=== PATIENT | female | born 1940 | race Caucasian/White ===

== ENCOUNTER → 2017-04-14 | Outpatient (CLI) | payer MEDICARE ==
--- NOTE | 2017-04-15 13:05 | MM ---
Reason for exam: screening (asymptomatic). Last mammogram was performed 1 year and 4 months ago. History: Patient is postmenopausal. Physical Findings: A clinical breast exam by your physician is recommended on an annual basis and results should be correlated with mammographic findings. MG 3D Screening Mammo W/Cad Bilateral CC and MLO view(s) were taken. Prior study comparison: December 11, 2015, bilateral MG screening mammo w CAD. October 10, 2014, bilateral MG screening mammo w CAD. There are scattered fibroglandular densities. No significant changes when compared with prior studies. ASSESSMENT: Negative, BI-RAD 1 RECOMMENDATION: Routine screening mammogram of both breasts in 1 year.
== END | disposition home or self-care (01) ==
LOC: RADMAMWWP 10:28
PROVIDERS: ATTEND Family Medicine
DX: Z12.31 Encounter for screening mammogram for malignant neoplasm of breast (principal)
CPT/HCPCS: 77063; G0202

== ENCOUNTER 2017-04-21 07:25 | Day surgery (SDC) | payer MEDICARE ==
[2017-04-20 10:47] VITALS: BMI 29.9
[~2017-04-21 07:25] MED LIST: LACTATED RINGERS 1,000 ML IV SCH; LIDOCAINE 1% 20 ML VIAL (10MG/ML) FOR IV START INTRADERMA PRN
[2017-04-21 08:00] VITALS: TEMP 98.3
[2017-04-21] MEDS ORDERED: PROPOFOL 10 MG/ML 20 ML VIAL IV ONE (08:11)
--- NOTE | 2017-04-21 08:31 | P.PCN ---
Date of Procedure: 04/21/17 Procedure(s) Performed: BRIEF HISTORY: Patient is a 76-year-old pleasant white female scheduled for an elective colonoscopy as a part of evaluation of prior history of colon polyps. PROCEDURE PERFORMED: Colonoscopy with snare polypectomy PREOPERATIVE DIAGNOSIS: History of colon polyps. IV sedation per Anesthesia. PROCEDURE: After informed consent was obtained, the patient, was brought into the endoscopy unit. IV sedation was administered by Anesthesia under continuous monitoring. Digital rectal examination was normal. Initially the Olympus CF- 160 flexible video colonoscope was then inserted in the rectum, gradually advanced into the cecum without any difficulty. Careful examination was performed as the scope was gradually being withdrawn. Ileocecal valve and the appendiceal orifice were visualized and appeared normal. Prep was excellent. Mucosa of the cecum, ascending colon, transverse colon appeared normal. In the descending colon there was once limited polyp removed by snare polypectomy and in the sigmoid colon there was another 1 with a broad-based polyp removed by snare polypectomy. The last of the descending colon, sigmoid colon, and rectum appeared normal. moderate left sided diverticulosis seen. Retroflexion was performed in the rectum and no lesions were seen. The patient tolerated the procedure well. IMPRESSION: 1 cm descending colon polyp status post polypectomy 1 cm sigmoid colon polyp serous post-polypectomy Moderate left-sided diverticulosis. RECOMMENDATIONS: Findings of this examination were discussed with the patient as well as a family. He was advised to follow with the biopsy results. If the biopsy shows tubular adenoma she can have a repeat colonoscopy in 5 years.
[2017-04-21 08:33] LABS: Glucose,Whole Blood 96 mg/dL (75-99)
[2017-04-21 08:45] VITALS: RESP 18
[2017-04-21 09:10] VITALS: BP 111/63; PULSE 83
== END 2017-04-21 09:05 | disposition home or self-care (01) ==
LOC: ORWHC2ENDO 07:25
PROVIDERS: ATTEND Internal Medicine Gastroenterology
DX: Z12.11 Encounter for screening for malignant neoplasm of colon (principal); D12.5 Benign neoplasm of sigmoid colon; D12.4 Benign neoplasm of descending colon; K57.30 Diverticulosis of large intestine without perforation or abscess without bleeding; Z86.010 Personal history of colon polyps; I10 Essential (primary) hypertension; E78.5 Hyperlipidemia, unspecified; E11.9 Type 2 diabetes mellitus without complications; K21.9 Gastro-esophageal reflux disease without esophagitis; Z79.84 Long term (current) use of oral hypoglycemic drugs; Z79.82 Long term (current) use of aspirin; Z79.899 Other long term (current) drug therapy; Z88.5 Allergy status to narcotic agent; Z85.828 Personal history of other malignant neoplasm of skin
CPT/HCPCS: 45385; 88305; J2704

== ENCOUNTER → 2018-05-25 | Outpatient (CLI) | payer MEDICARE ==
--- NOTE | 2018-05-26 13:49 | MM ---
Reason for exam: screening (asymptomatic). Last mammogram was performed 1 year and 1 month ago. History: Patient is postmenopausal. MG 3D Screening Mammo W/Cad Bilateral CC and MLO view(s) were taken. Prior study comparison: April 14, 2017, bilateral MG 3d screening mammo w/cad. December 11, 2015, bilateral MG screening mammo w CAD. There are scattered fibroglandular densities. Chronic nodularity bilateral. No significant changes when compared with prior studies. ASSESSMENT: Benign, BI-RAD 2 RECOMMENDATION: Routine screening mammogram of both breasts in 1 year.
== END | disposition home or self-care (01) ==
LOC: RADMAMWWP 07:58
PROVIDERS: ATTEND Family Medicine
DX: Z12.31 Encounter for screening mammogram for malignant neoplasm of breast (principal)
CPT/HCPCS: 77063; 77067

== ENCOUNTER → 2018-11-18 | Outpatient (CLI) | payer MEDICARE ==
--- NOTE | 2018-11-21 19:02 | BD ---
EXAMINATION TYPE: Axial Bone Density DATE OF EXAM: 11/18/2018 COMPARISON: 08/19/2011 CLINICAL HISTORY: 78-year-old female disorder of bone Height: 63.5 Weight: 177.3 FRAX RISK QUESTIONS: Alcohol (3 or more units per day): no Family History (Parent hip fracture): no Glucocorticoids (More than 3mos): no (Ex: prednisone, prednisolone, methylprednisolone, dexamethasone, and hydrocortisone). History of Fracture in Adulthood: yes Secondary Osteoporosis: 1. Type 1 Diabetes: no 2. Hyperthyroidism: no 3. Menopause before 45: yes 4. Malnutrition: no 5. Chronic liver disease: no Rheumatoid Arthritis: no Current Tobacco Use: no RISK FACTORS HISTORY OF: Family History of Osteoporosis: yes Active: yes Diet low in dairy products/other sources of calcium: no Postmenopausal woman: age 44 Lost more than 2 inches in height since high school: no MEDICATIONS: metformin, simvastatin, lantis, acid reflux med Additional History: EXAM MEASUREMENTS: Bone mineral densitometry was performed using the [employer] System. Bone mineral density as measured about the Lumbar spine is: ----- L1-L4(G/cm2): 1.188 T Score Values are as follows: ----- L2: -0.6 ----- L3: 0.6 ----- L4: 0.7 ----- L1-L4: 0.1 Bone mineral density has: increased 4.6 % since study of: 08.19.2011 Bone mineral density about the R hip (g/cm2): 0.676 Bone mineral density about the L hip (g/cm2): 0.646 T Score values are as follows: -----R Neck: -2.6 -----L Neck: -2.8 -----R Total: -2.9 -----L Total: -2.9 Bone mineral density has: decreased -15.9 % since study of: 08.19.2011 IMPRESSION: Osteoporosis (T Score less than -2.5). There is increased fracture risk and therapy is usually indicated based on age. Re-Screen 1-2 years. NOTE: T-SCORE=SD OF THE YOUNG ADULT MEAN.
== END | disposition home or self-care (01) ==
LOC: RADBDWWP 09:03
PROVIDERS: ATTEND Family Medicine
DX: M81.0 Age-related osteoporosis without current pathological fracture (principal)
CPT/HCPCS: 77080

== ENCOUNTER → 2019-02-15 | Outpatient (CLI) | payer MEDICARE ==
[~2019-02-15] MED LIST changes: -LACTATED RINGERS 1,000 ML IV SCH; -LIDOCAINE 1% 20 ML VIAL (10MG/ML) FOR IV START INTRADERMA PRN; +SODIUM CHLORIDE 0.9% 500 ML 500 ML in EMPTY BAG 1 BAG IV PRN; +ZOLEDRONIC ACID 5 MG in SODIUM CHLORIDE 0.9% 100 ML IV NR
[2019-02-15 14:06] VITALS: BP 124/72; PULSE 109; RESP 16; TEMP 97.6
== END | disposition home or self-care (01) ==
LOC: PROCWHC3 12:58
PROVIDERS: ATTEND Family Medicine
DX: M81.0 Age-related osteoporosis without current pathological fracture (principal)
CPT/HCPCS: 96365

== ENCOUNTER → 2019-07-14 | Outpatient (CLI) | payer MEDICARE ==
--- NOTE | 2019-07-17 10:39 | MM ---
Reason for exam: screening (asymptomatic). Last mammogram was performed 1 year and 2 months ago. History: Patient is postmenopausal and history of other cancer. Physical Findings: A clinical breast exam by your physician is recommended on an annual basis and results should be correlated with mammographic findings. MG 3D Screening Mammo W/Cad Bilateral CC and MLO view(s) were taken. Prior study comparison: May 25, 2018, bilateral MG 3d screening mammo w/cad. April 14, 2017, bilateral MG 3d screening mammo w/cad. There are scattered fibroglandular densities. Stable benign calcifications. There is no discrete abnormality. No significant changes when compared with prior studies. ASSESSMENT: Benign, BI-RAD 2 RECOMMENDATION: Routine screening mammogram of both breasts in 1 year.
== END | disposition home or self-care (01) ==
LOC: RADMAMWWP 11:22
PROVIDERS: ATTEND Family Medicine
DX: Z12.31 Encounter for screening mammogram for malignant neoplasm of breast (principal)
CPT/HCPCS: 77063; 77067

== ENCOUNTER 2020-09-27 22:52 | Inpatient (IN) | payer MEDICARE ==
[2020-09-27] MEDS ORDERED: SODIUM CHLORIDE 0.9% 1,000 ML IV STA ×2 (22:57→23:14)
[2020-09-27] MEDS ORDERED: ALBUTEROL NEBULIZED 2.5 MG/3 ML INHALATION STA (23:14)
[2020-09-27] MEDS ORDERED: IPRATROPIUM 0.5 MG/2.5 ML NEBU INHALATION STA (23:14)
--- NOTE | 2020-09-27 23:19 | ED ---
SOB HPI - General Chief Complaint: Fall Stated Complaint: Fall, Weakness Time Seen by Provider: 09/27/20 22:53 Source: patient, family, RN notes reviewed, old records reviewed Mode of arrival: wheelchair Limitations: no limitations - History of Present Illness Initial Comments: This is a 80-year-old female to the ER for evaluation patient presents today for evaluation regards to severe distress unresponsiveness found the ground. Patient's brought by EMS, we are unable to get a pulse ox on this patient at this time. Patient is significantly low. Patient brought here by EMS family is at bedside providing recent history. Patient denying any pain she is able to answer questions and is alert MD Complaint: shortness of breath, cough, anxiety -: days(s) Severity: moderate Severity scale (1-10): 4 Consistency: constant Improves With: nothing Worsens With: nothing Known History Of: recurrent pneumonia Context: recent URI, anxiety, recent illness Associated Symptoms: fever, cough Treatments Prior to Arrival: oxygen, bronchodilator - Related Data Home Medications Medication Instructions Recorded Confirmed Aspirin [Adult Low Dose Aspirin EC] 81 mg PO DAILY 04/20/17 09/27/20 Cholecalciferol [Vitamin D3] 1,000 unit PO DAILY 04/20/17 09/27/20 Dapagliflozin Propanediol [Farxiga] 10 mg PO HS 04/20/17 09/27/20 Insulin Glargine,Hum.rec.anlog 75 unit SQ 04/20/17 09/27/20 [Lantus Solostar] Losartan [Cozaar] 25 mg PO QAM 04/20/17 09/27/20 Omeprazole 20 mg PO DAILY 04/20/17 09/27/20 Simvastatin [Zocor] 10 mg PO HS 04/20/17 09/27/20 metFORMIN HCL 1,500 mg PO W/BRKFST 04/20/17 09/27/20 Acetaminophen Tab [Tylenol Tab] 500 mg PO Q6H PRN 09/27/20 09/27/20 Furosemide [Lasix] 40 mg PO DAILY PRN 09/27/20 09/27/20 Sulfamethox-Tmp 800-160Mg [Bactrim 1 tab PO Q12HR 09/27/20 09/27/20 DS 800-160 mg] metFORMIN HCL 1,000 mg PO W/SUPPER 09/27/20 09/27/20 Allergies Allergy/AdvReac Type Severity Reaction Status Date / Time codeine AdvReac "MADE ME Verified 09/27/20 23:44 LOOPY" Review of Systems ROS Statement: Those systems with pertinent positive or pertinent negative responses have been documented in the HPI. ROS Other: All systems not noted in ROS Statement are negative. Past Medical History Past Medical History: Cancer, Diabetes Mellitus, GERD/Reflux, Hyperlipidemia, Hypertension Additional Past Medical History / Comment(s): Osteoporosis History of Any Multi-Drug Resistant Organisms: None Reported Past Surgical History: Hysterectomy Additional Past Surgical History / Comment(s): MILLY CATARACTS Past Anesthesia/Blood Transfusion Reactions: No Reported Reaction Past Psychological History: No Psychological Hx Reported Smoking Status: Never smoker Past Alcohol Use History: Rare Past Drug Use History: None Reported - Past Family History Mother Family Medical History: Cancer General Exam Limitations: altered mental status, physical limitation General appearance: alert, anxious Head exam: Present: atraumatic, normocephalic, normal inspection Eye exam: Present: normal appearance, PERRL, EOMI. Absent: scleral icterus, conjunctival injection, periorbital swelling ENT exam: Present: normal exam, mucous membranes moist Neck exam: Present: normal inspection. Absent: tenderness, meningismus, lymphadenopathy Respiratory exam: Present: respiratory distress, wheezes, accessory muscle use, decreased breath sounds, prolonged expiratory. Absent: rales, rhonchi, stridor Cardiovascular Exam: Present: normal rhythm, tachycardia, normal heart sounds. Absent: systolic murmur, diastolic murmur, rubs, gallop, clicks GI/Abdominal exam: Present: soft, normal bowel sounds. Absent: distended, tenderness, guarding, rebound, rigid Extremities exam: Present: normal inspection, full ROM, normal capillary refill. Absent: tenderness, pedal edema, joint swelling, calf tenderness Back exam: Present: normal inspection Neurological exam: Present: alert, oriented X3, CN II-XII intact Psychiatric exam: Present: normal affect, normal mood Skin exam: Present: warm, dry, intact, normal color. Absent: rash Course Vital Signs 09/27/20 09/27/20 09/28/20 23:03 23:40 00:21 Temperature 98.4 F Pulse Rate 133 H 122 H 116 H Respiratory 30 H 34 H 35 H Rate Blood Pressure 135/67 98/63 117/64 O2 Sat by Pulse 55 L 77 L 78 L Oximetry 09/28/20 09/28/20 01:28 03:34 Temperature Pulse Rate 111 H 95 Respiratory 33 H 25 H Rate Blood Pressure 115/67 115/67 O2 Sat by Pulse 97 96 Oximetry - Reevaluation(s) Reevaluation #1: Medical record is reviewed Patient continuously evaluated, difficulty getting oxygen improved she is late on her left side and oxygen does going to the 90s, remaining on BiPAP Patient remains alert Patient denying any significant pain Spoke with family at length regarding graveness of condition, the daughter who is at bedside is understanding, questions are answered - Consultations Consultation #1: spoke w Dr Redd re Admission, they're agreeable for admission Medical Decision Making - Medical Decision Making 80 female severe respiratory distress. Patient found down with significantly low pulse ox in the 50s 30s, patient brought to ER as well as supplemental O2 oxygen improved patient is able to speak but is significantly short of breath will admit ICU for further evaluation management - Lab Data Result diagrams: 09/30/20 03:18 09/30/20 03:18 Lab Results 09/27/20 09/27/20 09/27/20 Range/Units 23:45 23:45 23:45 WBC 3.8 (3.8-10.6) k/uL RBC 5.28 (3.80-5.40) m/uL Hgb 15.9 (11.4-16.0) gm/dL Hct 51.1 H (34.0-46.0) % MCV 96.8 (80.0-100.0) fL MCH 30.1 (25.0-35.0) pg MCHC 31.1 (31.0-37.0) g/dL RDW 14.0 (11.5-15.5) % Plt Count 99 L (150-450) k/uL MPV 10.0 Neutrophils % (Manual) 56 % Band Neuts % (Manual) 15 % Lymphocytes % (Manual) 21 % Monocytes % (Manual) 8 % Neutrophils # (Manual) 2.60 (1.3-7.7) k/uL Lymphocytes # (Manual) 0.80 L (1.0-4.8) k/uL Monocytes # (Manual) 0.30 (0-1.0) k/uL Nucleated RBCs 2 H (0-0) /100 WBC Manual Slide Review Performed Large Platelets Present Hypochromasia Slight PT 11.8 (9.0-12.0) sec INR 1.1 (<1.2) APTT 29.8 (22.0-30.0) sec D-Dimer 1.09 H (<0.60) mg/L FEU Sample Site ABG pH (7.35-7.45) ABG pCO2 (35-45) mmHg ABG pO2 (83-108) mmHg ABG HCO3 (21-25) mmol/L ABG Total CO2 (19-24) mmol/L ABG O2 Saturation (94-97) % ABG Base Excess mmol/L Ean Test FiO2 % Sodium 133 L (137-145) mmol/L Potassium 4.5 (3.5-5.1) mmol/L Chloride 100 (98-107) mmol/L Carbon Dioxide 14 L (22-30) mmol/L Anion Gap 19 mmol/L BUN 17 (7-17) mg/dL Creatinine 0.90 (0.52-1.04) mg/dL Est GFR (CKD-EPI)AfAm 71 (>60 ml/min/1.73 sqM) Est GFR (CKD-EPI)NonAf 61 (>60 ml/min/1.73 sqM) Glucose 103 H (74-99) mg/dL Lactic Ac Sepsis Rflx Plasma Lactic Acid Xavier (0.7-2.0) mmol/L Calcium 8.5 (8.4-10.2) mg/dL Phosphorus 4.9 H (2.5-4.5) mg/dL Magnesium 2.0 (1.6-2.3) mg/dL Total Bilirubin 0.9 (0.2-1.3) mg/dL AST 207 H (14-36) U/L ALT 62 H (4-34) U/L Alkaline Phosphatase 71 (38-126) U/L Lactate Dehydrogenase 1724 H (313-618) U/L Creatine Kinase 454 H (30-135) U/L Troponin I (0.000-0.034) ng/mL C-Reactive Protein 77.0 H (<10.0) mg/L NT-Pro-B Natriuret Pep pg/mL Total Protein 7.0 (6.3-8.2) g/dL Albumin 3.2 L (3.5-5.0) g/dL TSH 0.714 (0.465-4.680) mIU/L Coronavirus (PCR) (Not Detectd) 09/27/20 09/27/20 09/27/20 Range/Units 23:45 23:45 23:45 WBC (3.8-10.6) k/uL RBC (3.80-5.40) m/uL Hgb (11.4-16.0) gm/dL Hct (34.0-46.0) % MCV (80.0-100.0) fL MCH (25.0-35.0) pg MCHC (31.0-37.0) g/dL RDW (11.5-15.5) % Plt Count (150-450) k/uL MPV Neutrophils % (Manual) % Band Neuts % (Manual) % Lymphocytes % (Manual) % Monocytes % (Manual) % Neutrophils # (Manual) (1.3-7.7) k/uL Lymphocytes # (Manual) (1.0-4.8) k/uL Monocytes # (Manual) (0-1.0) k/uL Nucleated RBCs (0-0) /100 WBC Manual Slide Review Large Platelets Hypochromasia PT (9.0-12.0) sec INR (<1.2) APTT (22.0-30.0) sec D-Dimer (<0.60) mg/L FEU Sample Site ABG pH (7.35-7.45) ABG pCO2 (35-45) mmHg ABG pO2 (83-108) mmHg ABG HCO3 (21-25) mmol/L ABG Total CO2 (19-24) mmol/L ABG O2 Saturation (94-97) % ABG Base Excess mmol/L Ean Test FiO2 % Sodium (137-145) mmol/L Potassium (3.5-5.1) mmol/L Chloride (98-107) mmol/L Carbon Dioxide (22-30) mmol/L Anion Gap mmol/L BUN (7-17) mg/dL Creatinine (0.52-1.04) mg/dL Est GFR (CKD-EPI)AfAm (>60 ml/min/1.73 sqM) Est GFR (CKD-EPI)NonAf (>60 ml/min/1.73 sqM) Glucose (74-99) mg/dL Lactic Ac Sepsis Rflx Plasma Lactic Acid Xavier 11.4 H* (0.7-2.0) mmol/L Calcium (8.4-10.2) mg/dL Phosphorus (2.5-4.5) mg/dL Magnesium (1.6-2.3) mg/dL Total Bilirubin (0.2-1.3) mg/dL AST (14-36) U/L ALT (4-34) U/L Alkaline Phosphatase (38-126) U/L Lactate Dehydrogenase (313-618) U/L Creatine Kinase (30-135) U/L Troponin I 0.118 H* (0.000-0.034) ng/mL C-Reactive Protein (<10.0) mg/L NT-Pro-B Natriuret Pep 330 pg/mL Total Protein (6.3-8.2) g/dL Albumin (3.5-5.0) g/dL TSH (0.465-4.680) mIU/L Coronavirus (PCR) (Not Detectd) 09/28/20 09/28/20 09/28/20 Range/Units 00:14 01:02 01:14 WBC (3.8-10.6) k/uL RBC (3.80-5.40) m/uL Hgb (11.4-16.0) gm/dL Hct (34.0-46.0) % MCV (80.0-100.0) fL MCH (25.0-35.0) pg MCHC (31.0-37.0) g/dL RDW (11.5-15.5) % Plt Count (150-450) k/uL MPV Neutrophils % (Manual) % Band Neuts % (Manual) % Lymphocytes % (Manual) % Monocytes % (Manual) % Neutrophils # (Manual) (1.3-7.7) k/uL Lymphocytes # (Manual) (1.0-4.8) k/uL Monocytes # (Manual) (0-1.0) k/uL Nucleated RBCs (0-0) /100 WBC Manual Slide Review Large Platelets Hypochromasia PT (9.0-12.0) sec INR (<1.2) APTT (22.0-30.0) sec D-Dimer (<0.60) mg/L FEU Sample Site Right Radial ABG pH 7.32 L (7.35-7.45) ABG pCO2 28 L (35-45) mmHg ABG pO2 45 L* (83-108) mmHg ABG HCO3 14 L (21-25) mmol/L ABG Total CO2 15 L (19-24) mmol/L ABG O2 Saturation 76.6 L (94-97) % ABG Base Excess -12.0 mmol/L Ean Test Yes FiO2 100 % Sodium (137-145) mmol/L Potassium (3.5-5.1) mmol/L Chloride (98-107) mmol/L Carbon Dioxide (22-30) mmol/L Anion Gap mmol/L BUN (7-17) mg/dL Creatinine (0.52-1.04) mg/dL Est GFR (CKD-EPI)AfAm (>60 ml/min/1.73 sqM) Est GFR (CKD-EPI)NonAf (>60 ml/min/1.73 sqM) Glucose (74-99) mg/dL Lactic Ac Sepsis Rflx Y Plasma Lactic Acid Xavier (0.7-2.0) mmol/L Calcium (8.4-10.2) mg/dL Phosphorus (2.5-4.5) mg/dL Magnesium (1.6-2.3) mg/dL Total Bilirubin (0.2-1.3) mg/dL AST (14-36) U/L ALT (4-34) U/L Alkaline Phosphatase (38-126) U/L Lactate Dehydrogenase (313-618) U/L Creatine Kinase (30-135) U/L Troponin I (0.000-0.034) ng/mL C-Reactive Protein (<10.0) mg/L NT-Pro-B Natriuret Pep pg/mL Total Protein (6.3-8.2) g/dL Albumin (3.5-5.0) g/dL TSH (0.465-4.680) mIU/L Coronavirus (PCR) Detected A (Not Detectd) - EKG Data -: EKG Interpreted by Me (EKG is sinus tach 126 OH 124 QRS 128 QTc 489) - Radiology Data Radiology results: report reviewed (Chest x-ray shows significant pulmonary edema medical traits likely coronavirus), image reviewed Critical Care Time Critical Care Time: Yes Total Critical Care Time: 31 Disposition Clinical Impression: COVID-19, Pneumonia, ARDS (adult respiratory distress syndrome), Hypoxia Disposition: ADMITTED IP TO THIS HOSP Condition: Serious Is patient prescribed a controlled substance at d/c from ED?: No
--- NOTE | 2020-09-27 23:56 | XR ---
EXAMINATION TYPE: XR chest 1V portable DATE OF EXAM: 09/27/2020 COMPARISON: NONE HISTORY: Short of breath TECHNIQUE: Single view FINDINGS: Heart is enlarged. There is moderate pulmonary airspace edema. Thoracic aorta is atheromato us. There are chest leads. IMPRESSION: Moderate pulmonary edema that could relate to acute congestive heart failure or RDS.
[2020-09-28 00:48] LABS: HCT 51.1 % (34.0-46.0); HGB 15.9 gm/dL (11.4-16.0); Hypochromasia Slight; MCH 30.1 pg (25.0-35.0); MCHC 31.1 g/dL (31.0-37.0); MCV 96.8 fL (80.0-100.0); RBC 5.28 m/uL (3.80-5.40)
[2020-09-28 00:57] LABS: INR 1.1 (<1.2); Partial Thromboplastin Time 29.8 sec (22.0-30.0); Prothrombin Time 11.8 sec (9.0-12.0)
[2020-09-28 01:05] LABS: ABG HCO3 14 mmol/L (21-25); ABG Oxygen Saturation 76.6 % (94-97); ABG PCO2 28 mmHg (35-45); ABG PH 7.32 (7.35-7.45); ABG TCO2 15 mmol/L (19-24); Allen Test Performed? Yes
[2020-09-28 01:05] LABS: Albumin 3.2 g/dL (3.5-5.0); Calcium 8.5 mg/dL (8.4-10.2); Phosphorus 4.9 mg/dL (2.5-4.5); Potassium 4.5 mmol/L (3.5-5.1); Total Bilirubin 0.9 mg/dL (0.2-1.3)
[2020-09-28 01:12] LABS: D-Dimer 1.09 mg/L FEU (<0.60)
[2020-09-28 01:36] LABS: ABG PO2 45 mmHg (83-108)
[2020-09-28] MEDS ORDERED: NALOXONE 0.4 MG/ML 1 ML VIAL IV PRN (01:38)
[2020-09-28 01:39] LABS: Band Neutrophils % 15 %; Neutrophils % (M) 56 %; Nucleated Red Blood Cells 2 /100 WBC (0-0); Total Cells Counted 200; WBC 3.8 k/uL (3.8-10.6)
[2020-09-28 01:40] LABS: Large Platelets Present; Platelet Count 99 k/uL (150-450)
[2020-09-28 03:46] LABS: Glucose,Whole Blood 85 mg/dL (75-99)
[2020-09-28] MEDS ORDERED: SODIUM CHLORIDE 0.9% 2,000 ML IV ONE (04:18)
[2020-09-28] MEDS ORDERED: DEXAMETHASONE SOD PHOSPHATE 20 MG in DEXTROSE 5% IN WATER 50 ML IV ONE ×2 (04:30)
[2020-09-28 04:47] LABS: ABG HCO3 18 mmol/L (21-25); ABG PCO2 37 mmHg (35-45); ABG PH 7.29 (7.35-7.45); ABG PO2 80 mmHg (83-108); Allen Test Performed? Yes
[2020-09-28 04:48] LABS: ABG Base Excess -8.4 mmol/L; ABG TCO2 19 mmol/L (19-24)
[2020-09-28] MEDS: DEXAMETHASONE SOD PHOSPHATE 20 MG in DEXTROSE 5% IN WATER 50 ML IV SCH ×4 (06:00→09:01)
[2020-09-28] MEDS ORDERED: SODIUM CHLORIDE 0.9% 1,000 ML IV ONE (06:17)
[2020-09-28] MEDS: MORPHINE SULFATE 4 MG/ML SYRINGE IV PRN (06:33)
[2020-09-28] MEDS ORDERED: DEXMEDETOMIDINE/0.9% NACL(PMX) 400 MCG in EMPTY BAG 1 BAG IV SCH (06:45)
[2020-09-28] MEDS ORDERED: DILTIAZEM 5 MG/ML 5 ML VIAL IVP STA (06:49)
[2020-09-28] MEDS ORDERED: IPRATROPIUM-ALBUTEROL 3 ML NEB INHALATION SCH (08:00)
[2020-09-28] MEDS: ALBUTEROL HFA INHALER INHALATION SCH ×4 (08:27→19:16)
[2020-09-28 08:46] LABS: Amorphous Sediment,Urine Occasional /hpf; Appearance,Urine Clear (Clear); Bacteria,Urine Rare /hpf; Bilirubin,Urine Negative (Negative); Blood,Urine Negative (Negative); Color,Urine Yellow; Glucose,Urine (UA) 4+ (Negative); Hyaline Casts,Urine 4 /lpf (0-2); Ketones,Urine Negative (Negative); Leukocyte Esterase,Urine Negative (Negative); Mucus,Urine Rare /hpf; Nitrite,Urine Negative (Negative); PH, Urine 5.5 (5.0-8.0); Protein,Urine 1+ (Negative); RBC,Urine 21 /hpf (0-5); Specific Gravity,Urine 1.024 (1.001-1.035); Squamous Epithelial Cell,Urine 1 /hpf (0-4); Urobilinogen,Urine <2.0 mg/dL (<2.0); WBC,Urine 1 /hpf (0-5)
[2020-09-28] MEDS ORDERED: NOREPINEPHRIN 4 MG-0.9% NS PMX 4 MG/250 ML ML IV ONE (08:49)
--- NOTE | 2020-09-28 08:54 | XR ---
EXAMINATION TYPE: XR chest 1V portable DATE OF EXAM: 09/28/2020 COMPARISON: Chest x-ray dated 09/27/2020 HISTORY: Shortness of breath TECHNIQUE: Single frontal view of the chest is obtained. FINDINGS: Bilateral airspace disease, interstitial changes are again noted similar to prior exam. No evident pneumothorax. Heart is enlarged. Aorta is dense. Patient is rotated and there are overlying leads. Difficult to exclude effusion. IMPRESSION: Correlate for pulmonary edema, congestive heart failure, follow-up suggested.
[2020-09-28] MEDS: SODIUM CHLORIDE 0.9% 1,000 ML IV SCH ×3 (09:00→22:41)
[2020-09-28] MEDS: ENOXAPARIN 40 MG/0.4 ML SYRINGE SQ SCH (09:01)
[2020-09-28] MEDS ORDERED: CHLORHEXIDINE GLUCONATE 15 ML CUP MUCOUS MEM ONE (09:21)
--- NOTE | 2020-09-28 09:35 | P.CNPUL ---
History of Present Illness Consult date: 09/28/20 Reason for consult: dyspnea, pneumonia History of present illness: this 80-year-old female patient, known history of diabetes and hypertension, was brought into the emergency department upon the request of her family because of generalized weakness, falls and confusion x6 days. Her condition declined and the patient decompensated over the past 48-72 hours. This was rather a quick deterioration in her condition. She had been having also shortness of breath for the past 2 days.. In the emergency department, the initial vitals showed that the patient was profoundly hypoxic with a pulse ox of 50%. At that point, the patient also had blood work that showed severe lactic acidosis with a lactic acid level of 11. She wasgiven a chest x-ray that showed diffuse bilateral pulmonary infiltrates. The patient was given a bolus of 1 L of IV fluid and following that she was moved to the intensive care unit. The patient was kept on BiPAP throughout the night and currently she is on a BiPAP pressure of 14/7 cm of water with an FiO2 of 100%. Her FiO2 was 85%. She is responsive, however she is quite tachypneic and she is breathing in the mid 30s and she is struggling with her breathing and earlier this morning she started getting more restless and agitated. We had to start on Precedex which is currently running at 0.4 mcg/kg/h. She seems to be much more comfortable while on Precedex.had a bout of atrial fibrillation with rapid ventricular response in the ICU. The heart rate went up to 170 range. She was given 20 mg of Cardizem IV push. She converted back to normal sinus rhythm. She became hypotensive and her systolic blood pressure in the mid 60s. She was given additional 2 L of IV fluids and the patient is currently on normal saline running at 30 mL an hour. She will be also started on norepinephrine infusion. Lactic acid level is down to 6 based on the follow-up blood work.the blood gas showed a pH of 7.29 with a pCO2 of 37 and pO2 of 80. This was done a bipolar or 14/7 with an FiO2 of 100%. Chest x- ray showing diffuse breath and pulmonary infiltrates. D-dimer is at 1.09. The patient has a LDH of 1724, CRP level is 77, troponin is at 0.118, the proBNP level is 330, the patient has a lactic acid level of 11.4 at time of admission her lactic acid level is down to 6.7 and she has an anion gap metabolic acidosis with a serum bicarb of 14 and a gap of 19. UA is positive for glucose, +4, and COVID19 testing was positive. As such, her presentation is consistent with COVID 19 pneumonia. Review of Systems ROS unobtainable: due to mental status Past Medical History Past Medical History: Cancer, Diabetes Mellitus, GERD/Reflux, Hyperlipidemia, Hypertension Additional Past Medical History / Comment(s): Osteoporosis History of Any Multi-Drug Resistant Organisms: None Reported Past Surgical History: Hysterectomy Additional Past Surgical History / Comment(s): MILLY CATARACTS Past Anesthesia/Blood Transfusion Reactions: No Reported Reaction Past Psychological History: No Psychological Hx Reported Smoking Status: Never smoker Past Alcohol Use History: Rare Past Drug Use History: None Reported - Past Family History Mother Family Medical History: Cancer Medications and Allergies Home Medications Medication Instructions Recorded Confirmed Type Aspirin [Adult Low Dose Aspirin EC] 81 mg PO DAILY 04/20/17 09/27/20 History Cholecalciferol [Vitamin D3] 1,000 unit PO DAILY 04/20/17 09/27/20 History Dapagliflozin Propanediol [Farxiga] 10 mg PO HS 04/20/17 09/27/20 History Insulin Glargine,Hum.rec.anlog 75 unit SQ HS 04/20/17 09/27/20 History [Lantus Solostar] Losartan [Cozaar] 25 mg PO QAM 04/20/17 09/27/20 History Omeprazole 20 mg PO DAILY 04/20/17 09/27/20 History Simvastatin [Zocor] 10 mg PO HS 04/20/17 09/27/20 History metFORMIN HCL 1,500 mg PO W/BRKFST 04/20/17 09/27/20 History Acetaminophen Tab [Tylenol Tab] 500 mg PO Q6H PRN 09/27/20 09/27/20 History Furosemide [Lasix] 40 mg PO DAILY PRN 09/27/20 09/27/20 History Sulfamethox-Tmp 800-160Mg [Bactrim 1 tab PO Q12HR 09/27/20 09/27/20 History DS 800-160 mg] metFORMIN HCL 1,000 mg PO W/SUPPER 09/27/20 09/27/20 History Allergies Allergy/AdvReac Type Severity Reaction Status Date / Time codeine AdvReac "MADE ME Verified 09/27/20 23:44 LOOPY" Physical Exam Vitals: Vital Signs Temp Pulse Resp BP Pulse Ox 09/28/20 08:00 98.3 F 76 27 H 87/39 88 L 09/28/20 07:00 165/78 09/28/20 06:00 135 H 28 H 138/86 81 L 09/28/20 05:00 117 H 32 H 138/86 92 L 09/28/20 04:00 98.2 F 110 H 23 146/63 95 09/28/20 03:34 95 25 H 115/67 96 09/28/20 01:28 111 H 33 H 115/67 97 09/28/20 00:21 116 H 35 H 117/64 78 L 09/27/20 23:40 122 H 34 H 98/63 77 L 09/27/20 23:03 98.4 F 133 H 30 H 135/67 55 L Intake and Output 09/27/20 09/28/20 09/28/20 22:59 06:59 14:59 Intake Total 1730 630 Output Total 650 100 Balance 1080 530 Intake: IV 1730 630 Dexamethasone Sod 100 Phosphate 20 mg In Dextrose 5% in Water 50 ml @ 100 mls/hr IV DAILY [facility] Rx#:[id number] Sodium Chloride 0.9% 1, 130 000 ml @ 130 mls/hr IV . Q7H42M [facility] Rx#:[id number] Sodium Chloride 0.9% 1, 1630 500 000 ml @ 999 mls/hr IV . Q1H1M [facility] Rx#:[id number] Output: Urine 650 100 Other: Voiding Method Indwelling Catheter Weight 76.4 kg the patient is lethargic, tachypneic, using some accessory muscles of breathing while being on a BiPAP at a pressure of 14/7 cm of water with an FiO2 of 100%. She is arousable. She is currently less agitated on Precedex. Head exam was generally normal. There was no scleral icterus or corneal arcus. Mucous membranes were moist. Neck was supple and without jugular venous distension, thyromegaly, or carotid bruits. Carotids were easily palpable bilaterally. There was no adenopathy. Lungs sounds are diminished and the patient has crackles in the mid and lower lung lr bilaterally. Breath sounds are equal and symmetrical. sounds are regular, tachycardic,Cardiac exam revealed the PMI to be normally situated and sized. The rhythm was regular and no extrasystoles were noted during several minutes of auscultation. The first and second heart sounds were normal and physiologic splitting of the second heart sound was noted. There were no murmurs, rubs, clicks, or gallops. Abdominal exam revealed normal bowel sounds. The abdomen was soft, non-tender, and without masses, organomegaly, or appreciable enlargement of the abdominal aorta. Examination of the extremities revealed easily palpable radial, femoral and pedal pulses. There was no cyanosis, clubbing or edema. Examination of the skin revealed no evidence of significant rashes, suspicious appearing nevi or other concerning lesions. Results - Laboratory Findings CBC and BMP: 09/27/20 23:45 09/27/20 23:45 ABG ABG pH 7.29 (7.35-7.45) L 09/28/20 04:41 ABG pCO2 37 mmHg (35-45) 09/28/20 04:41 ABG pO2 80 mmHg (83-108) L 09/28/20 04:41 ABG O2 Saturation 95.0 % (94-97) 09/28/20 04:41 PT/INR, D-dimer PT 11.8 sec (9.0-12.0) 09/27/20 23:45 INR 1.1 (<1.2) 09/27/20 23:45 D-Dimer 1.09 mg/L FEU (<0.60) H 09/27/20 23:45 Abnormal lab findings: Abnormal Labs 09/27/20 09/27/20 09/27/20 23:45 23:45 23:45 Hct 51.1 H Plt Count 99 L Lymphocytes # (Manual) 0.80 L Nucleated RBCs 2 H D-Dimer 1.09 H ABG pH ABG pCO2 ABG pO2 ABG HCO3 ABG Total CO2 ABG O2 Saturation Sodium 133 L Carbon Dioxide 14 L Glucose 103 H Plasma Lactic Acid Xavier Phosphorus 4.9 H AST 207 H ALT 62 H Lactate Dehydrogenase 1724 H Creatine Kinase 454 H Troponin I C-Reactive Protein 77.0 H Albumin 3.2 L Urine Protein Urine Glucose (UA) Urine RBC Amorphous Sediment Urine Bacteria Hyaline Casts Urine Mucus Coronavirus (PCR) 09/27/20 09/27/20 09/28/20 23:45 23:45 00:14 Hct Plt Count Lymphocytes # (Manual) Nucleated RBCs D-Dimer ABG pH ABG pCO2 ABG pO2 ABG HCO3 ABG Total CO2 ABG O2 Saturation Sodium Carbon Dioxide Glucose Plasma Lactic Acid Xavier 11.4 H* Phosphorus AST ALT Lactate Dehydrogenase Creatine Kinase Troponin I 0.118 H* C-Reactive Protein Albumin Urine Protein Urine Glucose (UA) Urine RBC Amorphous Sediment Urine Bacteria Hyaline Casts Urine Mucus Coronavirus (PCR) Detected A 09/28/20 09/28/20 09/28/20 01:02 04:01 04:41 Hct Plt Count Lymphocytes # (Manual) Nucleated RBCs D-Dimer ABG pH 7.32 L 7.29 L ABG pCO2 28 L ABG pO2 45 L* 80 L ABG HCO3 14 L 18 L ABG Total CO2 15 L ABG O2 Saturation 76.6 L Sodium Carbon Dioxide Glucose Plasma Lactic Acid Xavier 6.7 H* Phosphorus AST ALT Lactate Dehydrogenase Creatine Kinase Troponin I C-Reactive Protein Albumin Urine Protein Urine Glucose (UA) Urine RBC Amorphous Sediment Urine Bacteria Hyaline Casts Urine Mucus Coronavirus (PCR) 09/28/20 08:06 Hct Plt Count Lymphocytes # (Manual) Nucleated RBCs D-Dimer ABG pH ABG pCO2 ABG pO2 ABG HCO3 ABG Total CO2 ABG O2 Saturation Sodium Carbon Dioxide Glucose Plasma Lactic Acid Xavier Phosphorus AST ALT Lactate Dehydrogenase Creatine Kinase Troponin I C-Reactive Protein Albumin Urine Protein 1+ H Urine Glucose (UA) 4+ H Urine RBC 21 H Amorphous Sediment Occasional H Urine Bacteria Rare H Hyaline Casts 4 H Urine Mucus Rare H Coronavirus (PCR) - Diagnostic Findings Chest x-ray: image reviewed Assessment and Plan Plan: 1 acute hypoxic respiratory failure secondary to: 90 related pneumonia. The patient is currently on BiPAP at a pressure of 14/7 with an FiO2 of 100%. She remains quite hypoxic, not responding to BiPAP and she would obviously need intubation mechanical ventilation. The patient had rapid decline in her overall condition over the past 6 days, worse over the past 48 hours. Chest x-ray showing diffuse bilaterally pulmonary infiltrates consistent with mobility related pneumonia 2 acute shortness of breath secondary to above 3 altered mental status secondary to above 4 acute lactic acidosis, improving and the lactic acid level is down to 6.7. The patient did have a anion gap metabolic acidosis at time of admission 5 lymphopenia along with a component of thrombocytopenia, viral in nature. 6 elevation in the inflammatory markings including LDH and CRP. There is also mild elevation of the d-dimer 7 diabetes mellitus 8 hypertension 9 paroxysmal atrial fibrillation current rhythm is sinus after being given Cardizem bolus. No drips were utilized. 10 hypotension, likely hypovolemic and the patient is receiving IV fluids and she'll be also started on norepinephrine for blood pressure control Plan I contacted her daughter. I elected discussion with the daughter. Apparently the patient's wishes were short-term intubation if needed for any major event like this. Based on that, I made a decision to proceed with intubation mechanical ventilation. Appropriate ventilator changes will be done. The patient will obviously need a high PEEP low volume ventilation. Review the blood. This post intubation. We'll insert a triple lumen catheter and arterial line. The patient is a candidate for steroids and I'm going to put on a high dose of Decadron 20 mg IV push. The patient is a candidate for convalescent plasma and the patient will be given 2 units. The patient is not a candidate for Remdesivir. She may be a candidate for [id number], and this will be initiated over the next 24 hours once infections have been ruled out. We are going to do suspect that the patient with IV fluids. She was given a total of 3 L. Monitor lactic acid level. Maintain maintenance fluid at the rate of 150 mL an hour and use pressors if needed in the form of norepinephrine. Check pro calcitonin level. Check blood cultures. Monitor hematologic profile. D-dimer is mildly elevated and will put the patient on Lovenox 40 mg subcutaneously. Continue supportive care. Provide vitamin C, vitamin D, and IV Pepcid. Monitor the cardiac rhythm. Obtain echocardiogram. We'll continue to follow. Time with Patient: Greater than 30
--- NOTE | 2020-09-28 10:01 | P.PCN ---
Date of Procedure: 09/28/20 Preoperative Diagnosis: acute hypoxic respiratory failure Postoperative Diagnosis: same Procedure(s) Performed: insertion of a triple-lumen catheter, insertion of an arterial line Anesthesia: local Surgeon: Antonio Alvarenga Pathology: other Condition: critical Disposition: ICU Operative Findings: central line Indication: Hemodynamic monitoring/Intravenous access. A time-out was completed verifying correct patient, procedure, site, positioning, and implant(s) or special equipment if applicable. The patient was placed in a dependent position appropriate for central line placement based on the vein to be cannulated. The patients left shoulder neck was prepped and draped in sterile fashion. 1% Lidocaine was used to anesthetize the surrounding skin area. A triple lumen 9F Cordis catheter was introduced into the left internal jugular vein using Seldinger technique. The catheter was threaded smoothly over the guide wire and appropriate blood return was obtained. Each lumen of the catheter was evacuated of air and flushed with sterile saline. The catheter was then sutured in place to the skin and a sterile dressing applied. Perfusion to the extremity distal to the point of catheter insertion was checked and found to be adequate. The patient tolerated the procedure well and there were no complications. Arterial line Indication: Hemodynamic monitoring. A time-out was completed verifying correct patient, procedure, site, positioning, and implant(s) or special equipment if applicable. Allens test was performed to ensure adequate perfusion. The patients right wristwas prepped and draped in sterile fashion. 1% Lidocaine was used to anesthetize the area. An 18G Arrow arterial line was introduced into the radial artery. The catheter was threaded over the guide wire and the needle was removed with appropriate pulsatile blood return. Blood loss was minimal. The catheter was then sutured in place to the skin and a sterile dressing applied. Perfusion to the extremity distal to the point of catheter insertion was checked and found to be adequate. The patient tolerated the procedure well and there were no complications.
[2020-09-28 10:07] LABS: Allen Test Performed? Yes
[2020-09-28 10:08] LABS: ABG Base Excess -9.6 mmol/L; ABG HCO3 19 mmol/L (21-25); ABG PCO2 49 mmHg (35-45); ABG PH 7.19 (7.35-7.45); ABG PO2 59 mmHg (83-108); ABG TCO2 20 mmol/L (19-24)
[2020-09-28] MEDS ORDERED: propofoL 100 ML IV ONE (10:12)
--- NOTE | 2020-09-28 10:35 | XR ---
EXAMINATION TYPE: XR chest 1V portable DATE OF EXAM: 09/28/2020 COMPARISON: Chest x-ray 09/28/2020 HISTORY: Tube placement TECHNIQUE: Single frontal view of the chest is obtained. FINDINGS: Endotracheal tube and NG tube have been placed in the interval and are overlying appropria te positions, there is a left jugular central venous catheter with the distal tip over the cavoatrial junction level. Bilateral airspace disease persists. There is no evident pneumothorax. Heart is like ly stable, patient is rotated. There are overlying leads. Aorta is dense. Heart is obscured. IMPRESSION: Correlate for congestive heart failure, pneumonia
[2020-09-28] MEDS: NOREPINEPHRINE 4 MG in SODIUM CHLORIDE 0.9% 250 ML IV SCH ×2 (10:41→14:16)
[2020-09-28 11:29] LABS: HCT 44.1 % (34.0-46.0); Hypochromasia Slight; MCH 31.2 pg (25.0-35.0); MCHC 31.8 g/dL (31.0-37.0); MCV 98.1 fL (80.0-100.0); Mean Platelet Volume 9.5; Platelet Count 116 k/uL (150-450); RDW 13.6 % (11.5-15.5); WBC 8.4 k/uL (3.8-10.6)
[2020-09-28 12:20] LABS: Glucose,Whole Blood 118 mg/dL (75-99)
[2020-09-28] MEDS: INSULIN ASPART (NovoLOG) 100 UNIT/ML VIAL SQ SCH ×3 (12:20→23:46)
--- NOTE | 2020-09-28 14:49 | P.HPIM ---
History of Present Illness H&P Date: 09/28/20 Ann-Marie Molina, is a 80-year-old female patient of Dr. Esquivel, who presented to [facility] emergency room with a chief complaint of worsening shortness of breath generalized weakness and confusion, symptoms started about 6 days prior to admission but her condition declined significantly in the last 2 days. Patient was evaluated in emergency room vital examination on presentation revealed a temperature of 98.4 pulse 133 respiration 30 blood pressure 135/67 pulse ox 55% on room air her white blood count was 3.8 hemoglobin 15.9 platelet count 99 sodium 133 potassium 4.5 plasma lactic acid 11.4 BUN 17 creatinine 0.9 arterial blood gases revealed a pH of 7.19 pCO2 49 by mouth to 59 . Chest x-ray done in the emergency room revealed moderate pulmonary edema that could relate to congestive heart failure or ARDS , EKG revealed sinus tachycardia with right bundle branch block , coronavirus PCR was positive. patient was admitted to intensive care unit she was started on BiPAP. Patient developed atrial fibrillation with rapid ventricular response with a heart rate of 170 she was started on Cardizem drip, she had episodes of hypotension, she was started on levophed drip, and earlier this morning she required intubation and mechanical ventilation. Her past medical history is significant for history of hypertension, history of hyperlipidemia, history of insulin-dependent diabetes mellitus, and history of osteoporosis Past Medical History Past Medical History: Cancer, Diabetes Mellitus, GERD/Reflux, Hyperlipidemia, Hypertension Additional Past Medical History / Comment(s): Osteoporosis History of Any Multi-Drug Resistant Organisms: None Reported Past Surgical History: Hysterectomy Additional Past Surgical History / Comment(s): MILLY CATARACTS Past Anesthesia/Blood Transfusion Reactions: No Reported Reaction Past Psychological History: No Psychological Hx Reported Smoking Status: Never smoker Past Alcohol Use History: Rare Past Drug Use History: None Reported - Past Family History Mother Family Medical History: Cancer Medications and Allergies Home Medications Medication Instructions Recorded Confirmed Type Aspirin [Adult Low Dose Aspirin EC] 81 mg PO DAILY 04/20/17 09/27/20 History Cholecalciferol [Vitamin D3] 1,000 unit PO DAILY 04/20/17 09/27/20 History Dapagliflozin Propanediol [Farxiga] 10 mg PO HS 04/20/17 09/27/20 History Insulin Glargine,Hum.rec.anlog 75 unit SQ HS 04/20/17 09/27/20 History [Lantus Solostar] Losartan [Cozaar] 25 mg PO QAM 04/20/17 09/27/20 History Omeprazole 20 mg PO DAILY 04/20/17 09/27/20 History Simvastatin [Zocor] 10 mg PO HS 04/20/17 09/27/20 History metFORMIN HCL 1,500 mg PO W/BRKFST 04/20/17 09/27/20 History Acetaminophen Tab [Tylenol Tab] 500 mg PO Q6H PRN 09/27/20 09/27/20 History Furosemide [Lasix] 40 mg PO DAILY PRN 09/27/20 09/27/20 History Sulfamethox-Tmp 800-160Mg [Bactrim 1 tab PO Q12HR 09/27/20 09/27/20 History DS 800-160 mg] metFORMIN HCL 1,000 mg PO W/SUPPER 09/27/20 09/27/20 History Allergies Allergy/AdvReac Type Severity Reaction Status Date / Time codeine AdvReac "MADE ME Verified 09/27/20 23:44 LOOPY" Physical Exam Vitals: Vital Signs Temp Pulse Resp BP Pulse Ox 09/28/20 06:00 135 H 28 H 138/86 81 L 09/28/20 05:00 117 H 32 H 138/86 92 L 09/28/20 04:00 98.2 F 110 H 23 146/63 95 09/28/20 03:34 95 25 H 115/67 96 09/28/20 01:28 111 H 33 H 115/67 97 09/28/20 00:21 116 H 35 H 117/64 78 L 09/27/20 23:40 122 H 34 H 98/63 77 L 09/27/20 23:03 98.4 F 133 H 30 H 135/67 55 L Intake and Output 09/27/20 09/27/20 09/28/20 14:59 22:59 06:59 Intake Total 2230 Output Total 650 Balance 1580 Intake: IV 2230 Dexamethasone Sod 100 Phosphate 20 mg In Dextrose 5% in Water 50 ml @ 100 mls/hr IV DAILY [facility] Rx#:[id number] Sodium Chloride 0.9% 1, 2130 000 ml @ 999 mls/hr IV . Q1H1M [facility] Rx#:[id number] Output: Urine 650 Other: Voiding Method Indwelling Catheter Weight 76.4 kg Patient is intubated sedated maintained on mechanical ventilation HEENT head normocephalic and atraumatic Neck is supple no JVD no goiter no lymphadenopathy Chest exam reveals a few scattered rhonchi no wheezing Cardiac exam reveals regular heart sounds no gallops no murmurs Abdomen is soft nontender no organomegaly with normal bowel sounds Extremity exam reveals no edema no cyanosis or clubbing Results CBC & Chem 7: 09/28/20 10:18 09/27/20 23:45 Labs: Abnormal Lab Results - Last 24 Hours (Table) 09/27/20 09/27/20 09/27/20 Range/Units 23:45 23:45 23:45 Hct 51.1 H (34.0-46.0) % Plt Count 99 L (150-450) k/uL Lymphocytes # (Manual) 0.80 L (1.0-4.8) k/uL Nucleated RBCs 2 H (0-0) /100 WBC D-Dimer 1.09 H (<0.60) mg/L FEU ABG pH (7.35-7.45) ABG pCO2 (35-45) mmHg ABG pO2 (83-108) mmHg ABG HCO3 (21-25) mmol/L ABG Total CO2 (19-24) mmol/L ABG O2 Saturation (94-97) % Sodium 133 L (137-145) mmol/L Carbon Dioxide 14 L (22-30) mmol/L Glucose 103 H (74-99) mg/dL Plasma Lactic Acid Lovely (0.7-2.0) mmol/L Phosphorus 4.9 H (2.5-4.5) mg/dL AST 207 H (14-36) U/L ALT 62 H (4-34) U/L Lactate Dehydrogenase 1724 H (313-618) U/L Creatine Kinase 454 H (30-135) U/L Troponin I (0.000-0.034) ng/mL C-Reactive Protein 77.0 H (<10.0) mg/L Albumin 3.2 L (3.5-5.0) g/dL Coronavirus (PCR) (Not Detectd) 09/27/20 09/27/20 09/28/20 Range/Units 23:45 23:45 00:14 Hct (34.0-46.0) % Plt Count (150-450) k/uL Lymphocytes # (Manual) (1.0-4.8) k/uL Nucleated RBCs (0-0) /100 WBC D-Dimer (<0.60) mg/L FEU ABG pH (7.35-7.45) ABG pCO2 (35-45) mmHg ABG pO2 (83-108) mmHg ABG HCO3 (21-25) mmol/L ABG Total CO2 (19-24) mmol/L ABG O2 Saturation (94-97) % Sodium (137-145) mmol/L Carbon Dioxide (22-30) mmol/L Glucose (74-99) mg/dL Plasma Lactic Acid Lovely 11.4 H* (0.7-2.0) mmol/L Phosphorus (2.5-4.5) mg/dL AST (14-36) U/L ALT (4-34) U/L Lactate Dehydrogenase (313-618) U/L Creatine Kinase (30-135) U/L Troponin I 0.118 H* (0.000-0.034) ng/mL C-Reactive Protein (<10.0) mg/L Albumin (3.5-5.0) g/dL Coronavirus (PCR) Detected A (Not Detectd) 09/28/20 09/28/20 09/28/20 Range/Units 01:02 04:01 04:41 Hct (34.0-46.0) % Plt Count (150-450) k/uL Lymphocytes # (Manual) (1.0-4.8) k/uL Nucleated RBCs (0-0) /100 WBC D-Dimer (<0.60) mg/L FEU ABG pH 7.32 L 7.29 L (7.35-7.45) ABG pCO2 28 L (35-45) mmHg ABG pO2 45 L* 80 L (83-108) mmHg ABG HCO3 14 L 18 L (21-25) mmol/L ABG Total CO2 15 L (19-24) mmol/L ABG O2 Saturation 76.6 L (94-97) % Sodium (137-145) mmol/L Carbon Dioxide (22-30) mmol/L Glucose (74-99) mg/dL Plasma Lactic Acid Lovely 6.7 H* (0.7-2.0) mmol/L Phosphorus (2.5-4.5) mg/dL AST (14-36) U/L ALT (4-34) U/L Lactate Dehydrogenase (313-618) U/L Creatine Kinase (30-135) U/L Troponin I (0.000-0.034) ng/mL C-Reactive Protein (<10.0) mg/L Albumin (3.5-5.0) g/dL Coronavirus (PCR) (Not Detectd) Thrombosis Risk Factor Assmnt - Choose All That Apply Each Factor Represents 1 point: Obesity (BMI >25) Each Risk Factor Represents 2 Points: Patient confined to bed Each Risk Factor Represents 3 Points: Age 75 years or older Thrombosis Risk Factor Assessment Total Risk Factor Score: 6 Thrombosis Risk Factor Assessment Level: High Risk Assessment and Plan Plan: 1. Acute hypoxic respiratory failure, requiring intubation and mechanical lovely tilation 2. Poitive Covid 19 testing 3. bilateral pulmonary infiltrates, likely related to pneumonia due to Covid 19 virus 4. Episode of atrial fibrillation with rapid ventricular response 5. Acute lactic acidosis improving 6. Episode of hypotension improved with IV fluid and levophed drip 7. Underlying history of hypertension 8. Underlying history of hyperlipidemia 9. Underlying history of diabetes mellitus Currently patient is intubated sedated maintained on mechanical ventilation She is maintained on IV Decadron and subcu Lovenox Will follow closely prognosis is guarded due to age and severity of illness
[2020-09-28 15:40] LABS: ABG PH 7.22 (7.35-7.45)
[2020-09-28 15:41] LABS: ABG Base Excess -11.5 mmol/L; ABG HCO3 16 mmol/L (21-25); ABG PCO2 39 mmHg (35-45); ABG PO2 74 mmHg (83-108); ABG TCO2 17 mmol/L (19-24)
[2020-09-28] MEDS: NOREPINEPHRINE 8 MG in SODIUM CHLORIDE 0.9% 250 ML IV SCH ×2 (16:43→22:38)
[2020-09-28 17:04] LABS: Glucose,Whole Blood 134 mg/dL (75-99)
--- NOTE | 2020-09-28 17:27 | ECHOF ---
Referral Reason:elevated troponin CoVID MEASUREMENTS -------- HEIGHT: 165.1 cm WEIGHT: 81.6 kg BP: RVIDd: 2.5 cm (< 3.3) IVSd: 1.0 cm (0.6 - 1.1) LVIDd: 5.1 cm (3.9 - 5.3) LVPWd: 1.2 cm (0.6 - 1.1) IVSs: 1.9 cm LVIDs: 3.4 cm LVPWs: 1.6 cm LAESV Index (A-L): 36.60 ml/m Ao Diam: 3.1 cm (2.0 - 3.7) AV Cusp: 2.2 cm (1.5 - 2.6) LA Diam: 3.7 cm (2.7 - 3.8) MV EXCURSION: 12.842 mm (> 18.000) MV EF SLOPE: 61 mm/s (70 - 150) EPSS: 0.9 cm MV E Didier: 1.11 m/s MV DecT: 184 ms MV A Didier: 0.87 m/s MV E/A Ratio: 1.27 RAP: 20.00 mmHg RVSP: 50.06 mmHg FINDINGS -------- This was a technically good study. The left ventricular size is normal. There is mild concentric left ventricular hypertrophy. Overa ll left ventricular systolic function is normal with, an EF between 55 - 60 %. Increased LAP. Grade 2 Diastolic Dysfuntion. The right ventricle is normal in size. LA is moderately dilated 34-39 ml/m2 The right atrial size is normal. Aortic valve is trileaflet and is mildly thickened. The mitral valve is normal. The mitral valve leaflets are mildly thickened. Mild mitral regurgita tion is present. The tricuspid valve appears structurally normal. Mild tricuspid regurgitation present. There is m oderate pulmonary hypertension. The right ventricular systolic pressure, as measured by Doppler, is 50.06mmHg. There is no pulmonic regurgitation present. The aortic root size is normal. The inferior vena cava is dilated with no significant inspiratory collapse which is consistent estima nyla right atrial pressure of >20 mmHg. There is a small, generalized pericardial effusion present. CONCLUSIONS -------- 1. The left ventricular size is normal. 2. There is mild concentric left ventricular hypertrophy. 3. Overall left ventricular systolic function is normal with, an EF between 55 - 60 %. 4. Increased LAP. Grade 2 Diastolic Dysfuntion. 5. LA is moderately dilated 34-39 ml/m2 6. Aortic valve is trileaflet and is mildly thickened. 7. The mitral valve leaflets are mildly thickened. 8. Mild mitral regurgitation is present. 9. Mild tricuspid regurgitation present. 10. There is moderate pulmonary hypertension. 11. The right ventricular systolic pressure, as measured by Doppler, is 50.06mmHg. 12. The inferior vena cava is dilated with no significant inspiratory collapse which is consistent es timated right atrial pressure of >20 mmHg. 13. There is a small, generalized pericardial effusion present. FIELD TECHNICAL SPECIALIST: Sarahy Snowden RDCS
[2020-09-28] MEDS: CHLORHEXIDINE GLUCONATE 15 ML CUP MUCOUS MEM SCH (20:26)
[2020-09-28 23:37] LABS: Glucose,Whole Blood 142 mg/dL (75-99)
[2020-09-29] MEDS: MORPHINE SULFATE 4 MG/ML SYRINGE IV PRN (00:22)
[2020-09-29] MEDS: NOREPINEPHRINE 8 MG in SODIUM CHLORIDE 0.9% 250 ML IV SCH ×3 (02:56→13:14)
[2020-09-29] MEDS: SODIUM CHLORIDE 0.9% 1,000 ML IV SCH ×3 (03:01→14:04)
[2020-09-29 04:59] LABS: Glucose,Whole Blood 160 mg/dL (75-99)
[2020-09-29 05:10] LABS: ABG Base Excess -11.3 mmol/L; ABG HCO3 17 mmol/L (21-25); ABG Oxygen Saturation 98.2 % (94-97); ABG PCO2 46 mmHg (35-45); ABG PO2 108 mmHg (83-108); ABG TCO2 18 mmol/L (19-24); Allen Test Performed? Yes
[2020-09-29 05:17] LABS: HGB 14.1 gm/dL (11.4-16.0); Hypochromasia Slight; MCH 29.9 pg (25.0-35.0); MCHC 30.1 g/dL (31.0-37.0); MCV 99.5 fL (80.0-100.0); Mean Platelet Volume 8.3; RBC 4.72 m/uL (3.80-5.40); RDW 13.8 % (11.5-15.5); WBC 24.6 k/uL (3.8-10.6)
[2020-09-29] MEDS: INSULIN ASPART (NovoLOG) 100 UNIT/ML VIAL SQ SCH ×4 (05:35→23:52)
[2020-09-29 05:41] LABS: Albumin 2.5 g/dL (3.5-5.0); Phosphorus 3.6 mg/dL (2.5-4.5); Potassium 5.6 mmol/L (3.5-5.1); Total Bilirubin 0.8 mg/dL (0.2-1.3); Total Protein 5.9 g/dL (6.3-8.2)
[2020-09-29 06:14] LABS: Platelet Count 181 k/uL (150-450)
[2020-09-29] MEDS: ALBUTEROL HFA INHALER INHALATION SCH ×4 (07:26→19:55)
--- NOTE | 2020-09-29 07:40 | XR ---
EXAMINATION TYPE: XR chest 1V portable DATE OF EXAM: 09/29/2020 COMPARISON: Chest x-ray 09/28/2020 HISTORY: Intubated TECHNIQUE: Single frontal view of the chest is obtained. FINDINGS: Endotracheal tube, NG tube, left jugular central venous catheter are again noted and are o verlying appropriate positions. Patient is rotated. No evident pneumothorax or pleural effusion. Ther e is some interval improved aeration within the lungs, interval improved visualization of the hemidia phragms. Aorta is dense. Cardiac mediastinal silhouette likely stable, differences in technique. IMPRESSION: There is some improvement in aeration.
[2020-09-29 08:49] LABS: Band Neutrophils % 5 %; Lymphocytes # (M) 2.21 k/uL (1.0-4.8); Monocytes # (M) 0.74 k/uL (0-1.0); Neutrophils % (M) 83 %; Nucleated Red Blood Cells 0 /100 WBC (0-0); Total Cells Counted 100
--- NOTE | 2020-09-29 09:08 | P.PN ---
Subjective Progress Note Date: 09/29/20 this 80-year-old female patient, known history of diabetes and hypertension, was brought into the emergency department upon the request of her family because of generalized weakness, falls and confusion x6 days. Her condition declined and the patient decompensated over the past 48-72 hours. This was rather a quick deterioration in her condition. She had been having also shortness of breath for the past 2 days.. In the emergency department, the initial vitals showed that the patient was profoundly hypoxic with a pulse ox of 50%. At that point, the patient also had blood work that showed severe lactic acidosis with a lactic acid level of 11. She wasgiven a chest x-ray that showed diffuse bilateral pulmonary infiltrates. The patient was given a bolus of 1 L of IV fluid and following that she was moved to the intensive care unit. The patient was kept on BiPAP throughout the night and currently she is on a BiPAP pressure of 14/7 cm of water with an FiO2 of 100%. Her FiO2 was 85%. She is responsive, however she is quite tachypneic and she is breathing in the mid 30s and she is struggl ing with her breathing and earlier this morning she started getting more restless and agitated. We had to start on Precedex which is currently running at 0.4 mcg/kg/h. She seems to be much more comfortable while on Precedex.had a bout of atrial fibrillation with rapid ventricular response in the ICU. The heart rate went up to 170 range. She was given 20 mg of Cardizem IV push. She converted back to normal sinus rhythm. She became hypotensive and her systolic blood pressure in the mid 60s. She was given additional 2 L of IV fluids and the patient is currently on normal saline running at 30 mL an hour. She will be also started on norepinephrine infusion. Lactic acid level is down to 6 based on the follow-up blood work.the blood gas showed a pH of 7.29 with a pCO2 of 37 and pO2 of 80. This was done a bipolar or 14/7 with an FiO2 of 100%. Chest x- ray showing diffuse breath and pulmonary infiltrates. D-dimer is at 1.09. The patient has a LDH of 1724, CRP level is 77, troponin is at 0.118, the proBNP level is 330, the patient has a lactic acid level of 11.4 at time of admission her lactic acid level is down to 6.7 and she has an anion gap metabolic acidosis with a serum bicarb of 14 and a gap of 19. UA is positive for glucose, +4, and COVID19 testing was positive. As such, her presentation is consistent with COVID 19 pneumonia. 09/29/2020, the patient remains intubated on a mechanical ventilator. The patient was intubated yesterday for an acute hypoxic respiratory failure and she was placed on mechanical ventilator she is currently off of a running at 40 mcg/kg per minute. The patient is on no paralytics. She is quite successful mechanical ventilator. She is an assist-control mode at the rate of 30 with a tidal volume of 375 and FiO2 of 60% with a PEEP of this. The chest x-ray from today is showing bilateral perihilar and lower lobe in addition to right upper lobe pulmonary rate. ET tube is in a good location. It is seen around 2 cm above the goyo. The patient also has a left internal jugular. Some today showed a pH of 7.18 with a pCO2 of 46 and pO2 of 108 and this wasn't an FiO2 of 60%. Meanwhile, the patient was quite hypotensive and acidotic and the patient had a very high lactic acid level of 11.4 which dropped down to 4.6 with fluid resuscitation. Overall, the patient received a total of 3 L of IV fluid in the form of normal saline and the patient is currently running at 130s's an hour of normal saline. Urine output is in order of 30-40 mL an hour and the net fluid balance is been +4.8 L over the past 24 hours. As such the patient is well resuscitated. Most recent blood pressure is 95/44 and the patient is currently on pressors at 19 mcg/ per minute of norepinephrine infusion. The procalcitonin level was at 0.53 and blood cultures and sputum cultures were sent and the patient was covered with empiric antibiotics and the patient was given cefepime and Levaquin. White cell count today's at 24. She was given Decadron. She was given convalescent plasma one unit.. The renal function is stable. Electrolytes are stable. Potassium level is at 5.6 and this needs to be repeated. Serum bicarb is at 17 which is improving. Less lactic acid level from yesterday was at 4.6. The patient's blood sugar is at 160 and she is on sliding scale coverage for blood sugar control. Cardiac rhythm is sinus. No further bouts of atrial fibrillation. She did have one a 1 bouts yesterday prior to intubation and she converted back into normal sinus rhythm without any major difficulties. Objective - Vital Signs Vital signs: Vital Signs Temp 99.1 F 09/29/20 08:00 Pulse 112 H 09/29/20 08:30 Resp 31 H 09/29/20 08:30 BP 111/62 09/29/20 08:30 Pulse Ox 95 09/29/20 08:30 Intake & Output 09/28/20 09/29/20 09/29/20 18:59 06:59 18:59 Intake Total 3359.880 2782.820 351.771 Output Total 885 400 65 Balance 2474.880 2382.820 286.771 Weight 82.6 kg Intake: IV 2810 1800 300 0.9 Sodium Chloride 140 240 40 Sodium Chloride 0.9% 1, 260 000 ml @ 130 mls/hr IV . Q7H42M [facility] Rx#:[id number] Sodium Chloride 0.9% 1, 1170 1560 000 ml @ 130 mls/hr IV . Q7H42M [facility] Rx#:[id number] Sodium Chloride 0.9% 1, 1500 000 ml @ 999 mls/hr IV . Q1H1M [facility]A Rx#:[id number] Intake, IV Titration 357.880 982.820 51.771 Amount Dexmedetomidine/0.9% NaCl 12.733 (Pmx) 400 mcg In Empty Bag 1 bag @ Titrate IV . Q0M [facility] Rx#:[id number] Norepinephrine 4 mg In 254.000 Sodium Chloride 0.9% 250 ml @ 0.05 MCG/KG/MIN 14. 554 mls/hr IV .[id number] [facility] Rx#:[id number] Norepinephrine 8 mg In 13.601 708.628 51.771 Sodium Chloride 0.9% 250 ml @ 0.05 MCG/KG/MIN 7. 392 mls/hr IV .Q24H [facility] Rx#:[id number] propofoL 1,000 mg In 77.546 274.192 Empty Bag 1 bag @ Titrate IV .Q0M [facility] Rx#: [id number] Blood Product 192 Ffp Pher Conval Covid19 192 Acda 2 Unit [id number] Output: Gastric Drainage 500 Urine 385 400 65 Other: Voiding Method Indwelling Catheter Indwelling Catheter ABP, PAP, CO, CI - Last Documented Arterial Blood Pressure 116/44 - Exam the patient is sedated on propofol, intubated on a mechanical ventilator. The patient has a orogastric and orotracheal tube are both of them are in place. She has a left IJ triple-lumen catheter in place. Head exam was generally normal. There was no scleral icterus or corneal arcus. Mucous membranes were moist. Neck was supple and without jugular venous distension, thyromegaly, or carotid bruits. Carotids were easily palpable bilaterally. There was no adenopathy. Lungs sounds are diminished and the patient has crackles in the mid and lower lung rl bilaterally. Breath sounds are equal and symmetrical. sounds are regular, tachycardic,Cardiac exam revealed the PMI to be normally situated and sized. The rhythm was regular and no extrasystoles were noted during several minutes of auscultation. The first and second heart sounds were normal and physiologic splitting of the second heart sound was noted. There were no murmurs, rubs, clicks, or gallops. Abdominal exam revealed normal bowel sounds. The abdomen was soft, non-tender, and without masses, organomegaly, or appreciable enlargement of the abdominal aorta. Examination of the extremities revealed easily palpable radial, femoral and pedal pulses. There was no cyanosis, clubbing or edema. Examination of the skin revealed no evidence of significant rashes, suspicious appearing nevi or other concerning lesions. Neurologically, the patient is sedated and she is calm and comfortable, arousable, pupils are equal and reactive to light. - Labs CBC & Chem 7: 09/29/20 04:55 09/29/20 04:55 Labs: Abnormal Lab Results - Last 24 Hours (Table) 09/28/20 09/28/20 09/28/20 Range/Units 04:01 08:10 09:50 WBC (3.8-10.6) k/uL Hct (34.0-46.0) % MCHC (31.0-37.0) g/dL Plt Count (150-450) k/uL ABG pH 7.19 L* (7.35-7.45) ABG pCO2 49 H (35-45) mmHg ABG pO2 59 L* (83-108) mmHg ABG HCO3 19 L (21-25) mmol/L ABG Total CO2 (19-24) mmol/L ABG O2 Saturation 85.0 L (94-97) % Sodium (137-145) mmol/L Potassium (3.5-5.1) mmol/L Chloride (98-107) mmol/L Carbon Dioxide (22-30) mmol/L BUN (7-17) mg/dL Glucose (74-99) mg/dL POC Glucose (mg/dL) (75-99) mg/dL Plasma Lactic Acid Xavier 4.5 H* (0.7-2.0) mmol/L Calcium (8.4-10.2) mg/dL AST (14-36) U/L ALT (4-34) U/L Total Protein (6.3-8.2) g/dL Albumin (3.5-5.0) g/dL Procalcitonin 0.53 H (0.02-0.09) ng/mL 09/28/20 09/28/20 09/28/20 Range/Units 10:18 11:21 12:18 WBC (3.8-10.6) k/uL Hct (34.0-46.0) % MCHC (31.0-37.0) g/dL Plt Count 116 L (150-450) k/uL ABG pH (7.35-7.45) ABG pCO2 (35-45) mmHg ABG pO2 (83-108) mmHg ABG HCO3 (21-25) mmol/L ABG Total CO2 (19-24) mmol/L ABG O2 Saturation (94-97) % Sodium (137-145) mmol/L Potassium (3.5-5.1) mmol/L Chloride (98-107) mmol/L Carbon Dioxide (22-30) mmol/L BUN (7-17) mg/dL Glucose (74-99) mg/dL POC Glucose (mg/dL) 118 H (75-99) mg/dL Plasma Lactic Acid Xavier 4.8 H* (0.7-2.0) mmol/L Calcium (8.4-10.2) mg/dL AST (14-36) U/L ALT (4-34) U/L Total Protein (6.3-8.2) g/dL Albumin (3.5-5.0) g/dL Procalcitonin (0.02-0.09) ng/mL 09/28/20 09/28/20 09/28/20 Range/Units 15:31 15:51 17:03 WBC (3.8-10.6) k/uL Hct (34.0-46.0) % MCHC (31.0-37.0) g/dL Plt Count (150-450) k/uL ABG pH 7.22 L (7.35-7.45) ABG pCO2 (35-45) mmHg ABG pO2 74 L (83-108) mmHg ABG HCO3 16 L (21-25) mmol/L ABG Total CO2 17 L (19-24) mmol/L ABG O2 Saturation 93.0 L (94-97) % Sodium (137-145) mmol/L Potassium (3.5-5.1) mmol/L Chloride (98-107) mmol/L Carbon Dioxide (22-30) mmol/L BUN (7-17) mg/dL Glucose (74-99) mg/dL POC Glucose (mg/dL) 134 H (75-99) mg/dL Plasma Lactic Acid Xavier 4.6 H* (0.7-2.0) mmol/L Calcium (8.4-10.2) mg/dL AST (14-36) U/L ALT (4-34) U/L Total Protein (6.3-8.2) g/dL Albumin (3.5-5.0) g/dL Procalcitonin (0.02-0.09) ng/mL 09/28/20 09/29/20 09/29/20 Range/Units 23:36 04:55 04:55 WBC 24.6 H (3.8-10.6) k/uL Hct 47.0 H (34.0-46.0) % MCHC 30.1 L (31.0-37.0) g/dL Plt Count (150-450) k/uL ABG pH (7.35-7.45) ABG pCO2 (35-45) mmHg ABG pO2 (83-108) mmHg ABG HCO3 (21-25) mmol/L ABG Total CO2 (19-24) mmol/L ABG O2 Saturation (94-97) % Sodium 136 L (137-145) mmol/L Potassium 5.6 H (3.5-5.1) mmol/L Chloride 110 H (98-107) mmol/L Carbon Dioxide 17 L (22-30) mmol/L BUN 28 H (7-17) mg/dL Glucose 184 H (74-99) mg/dL POC Glucose (mg/dL) 142 H (75-99) mg/dL Plasma Lactic Acid Xavier (0.7-2.0) mmol/L Calcium 7.0 L (8.4-10.2) mg/dL AST 166 H (14-36) U/L ALT 46 H (4-34) U/L Total Protein 5.9 L (6.3-8.2) g/dL Albumin 2.5 L (3.5-5.0) g/dL Procalcitonin (0.02-0.09) ng/mL 09/29/20 09/29/20 Range/Units 04:55 05:02 WBC (3.8-10.6) k/uL Hct (34.0-46.0) % MCHC (31.0-37.0) g/dL Plt Count (150-450) k/uL ABG pH 7.18 L* (7.35-7.45) ABG pCO2 46 H (35-45) mmHg ABG pO2 (83-108) mmHg ABG HCO3 17 L (21-25) mmol/L ABG Total CO2 18 L (19-24) mmol/L ABG O2 Saturation 98.2 H (94-97) % Sodium (137-145) mmol/L Potassium (3.5-5.1) mmol/L Chloride (98-107) mmol/L Carbon Dioxide (22-30) mmol/L BUN (7-17) mg/dL Glucose (74-99) mg/dL POC Glucose (mg/dL) 160 H (75-99) mg/dL Plasma Lactic Acid Xavier (0.7-2.0) mmol/L Calcium (8.4-10.2) mg/dL AST (14-36) U/L ALT (4-34) U/L Total Protein (6.3-8.2) g/dL Albumin (3.5-5.0) g/dL Procalcitonin (0.02-0.09) ng/mL Assessment and Plan Plan: 1 acute hypoxic respiratory failure secondary to COVID 19 related pneumonia. The patient was intubated on 09/28/2020 and currently she is a mechanical v entilator. The chest x-ray is a bit atypical and the patient's perihilar and right upper lobe and right lower lobe pulmonary infiltrate and some infiltration of the left lung base. The patient has mild elevation of the process for level. The patient is hypotensive. The patient had severe lactic acidosis at time of admission and it's possible that she has a superinfection knowing that the white cell count is also elevated at 24. The patient is covered with antibiotics for now. She is on Decadron. She received a unit of convalescent plasma and his second unit is to follow today. Not a candidate for of the severe due to her respiratory failure and high oxygen support and the low PF ratio 2 hypotension, resuscitated IV fluids, received a total of 3 L and currently normal saline running at 130s's an hour. Consider underlying septic event or sepsis induced hypotension. The patient is currently on norepinephrine infusion running at 19 g per minute. Adequate urine output. The echocardiogram was performed and the patient is a preserved LV function with a normal ejection fraction. No valvular abnormalities. There is grade 2 diastolic heart failure. There is also a small generalized pericardial effusion. 3 Covid 19 related pneumonia 4 acute lactic acidosis, improving and the lactic acid level is down to 4.6. The patient did have a anion gap metabolic acidosis at time of admission 5 lymphopenia along with a component of thrombocytopenia, viral in nature. 6 elevation in the inflammatory markings including LDH and CRP. There is also mild elevation of the d-dimer on follow-up levels are pending for now 7 diabetes mellitus 8 hypertension 9 paroxysmal atrial fibrillation current rhythm is sinus after being given Cardizem bolus. No drips were utilized. 10 leukocytosis Plan Continue ventilator support. On inspection of the mechanical ventilator, the patient does not have any significant elevation of the peak and static pressures in her lungs are relatively compliance. I put a right-sided volume of 450 on a VC plus modes of volume cycle and I dropped a respiratory rate down to 24 I also drop the FiO2 down to 50% with a PEEP of 15. The follow-up blood gases will be obtained. With these adjustments, the patient seems to be much more comfortable and a follow-up blood gases will be obtained around noontime. Continue Decadron and give the patient another unit of convalescent plasma as mentioned, the patient is not a candidate for Remdesivir. She may be a candidate for [id number], and this will be initiated over the next 24 hours once infections have been ruled out. Nevertheless, with her ongoing elevated protein calcitonin level and white cell count and hypotension, I would avoid giving her [id number] treatment at this point in time. I would suggest repeating the pro calcitonin level. Continue Zosyn and Levaquin. Awai ting cultures. Obtain 1 more lactic acid level. Wean off pressors. Continue IV fluids at the same rate of 130s's an hour. We'll continue to follow. Her condition is critical. Recheck inflammatory markers in a.m. Continue Lovenox 40 mg subcu for DVT prophylaxis. Continue supportive care. Provide vitamin C, vitamin D, and IV Pepcid. Monitor the cardiac rhythm. Start the patient she'll feeds. Keep her sedated for now. Condition is very critical. We'll continue to follow make further recommendations based on her progress. Evaluation was done and more than 30 minutes. Time with Patient: Greater than 30
[2020-09-29] MEDS: CHLORHEXIDINE GLUCONATE 15 ML CUP MUCOUS MEM SCH ×2 (09:18→20:05)
[2020-09-29] MEDS: DEXAMETHASONE SOD PHOSPHATE 20 MG in DEXTROSE 5% IN WATER 50 ML IV SCH ×2 (09:18)
[2020-09-29] MEDS: ENOXAPARIN 40 MG/0.4 ML SYRINGE SQ SCH (09:19)
[2020-09-29] MEDS: LEVOFLOXACIN 750MG-D5W PMX 750 MG in DEXTROSE/WATER 1 150ML.BAG IVPB SCH (09:19)
[2020-09-29] MEDS: PIPERACILLIN-TAZOBACTAM 3.375 GM in SODIUM CHLORIDE 0.9% 100 ML IVPB SCH ×2 (09:20→18:17)
[2020-09-29 11:41] LABS: Glucose,Whole Blood 175 mg/dL (75-99)
[2020-09-29 12:20] LABS: ABG HCO3 18 mmol/L (21-25); ABG Oxygen Saturation 95.1 % (94-97); ABG PCO2 43 mmHg (35-45); ABG PH 7.23 (7.35-7.45); ABG PO2 75 mmHg (83-108); ABG TCO2 19 mmol/L (19-24)
[2020-09-29 13:10] LABS: Glucose,Whole Blood 165 mg/dL (75-99)
[2020-09-29 14:20] LABS: Hemoglobin A1C 7.1 % (4.0-6.0)
--- NOTE | 2020-09-29 15:30 | P.PN ---
Subjective Progress Note Date: 09/29/20 Ann-Marie Molina, is a 80-year-old female patient of Dr. Esquivel, who presented to [facility] emergency room with a chief complaint of worsening shortness of breath generalized weakness and confusion, symptoms started about 6 days prior to admission but her condition declined significantly in the last 2 days. Patient was evaluated in emergency room vital examination on presentation revealed a temperature of 98.4 pulse 133 respiration 30 blood pressure 135/67 pulse ox 55% on room air her white blood count was 3.8 hemoglobin 15.9 platelet count 99 sodium 133 potassium 4.5 plasma lactic acid 11.4 BUN 17 creatinine 0.9 arterial blood gases revealed a pH of 7.19 pCO2 49 by mouth to 59 . Chest x-ray done in the emergency room revealed moderate pulmonary edema that could relate to congestive heart failure or ARDS , EKG revealed sinus tachycardia with right bundle branch block , coronavirus PCR was positive. patient was admitted to intensive care unit she was started on BiPAP. Patient developed atrial fibrillation with rapid ventricular response with a heart rate of 170 she was started on Cardizem drip, she had episodes of hypotension, she was started on levophed drip, and earlier this morning she required intubation and mechanical ventilation. Her past medical history is significant for history of hypertension, history of hyperlipidemia, history of insulin-dependent diabetes mellitus, and history of osteoporosis On 09/29/2020 patient was seen and examined in the ICU she is intubated sedated maintained on mechanical ventilation she is on assist control rate of 30 FiO2 60% and a PEEP of 15. PH is 7.18 pCO2 46 by mouth 08/26/2007 lactic acid is down to 4.6 blood pressure 100/52 she is still maintained on levophed infusion, she is maintained on IV Decadron she received 1 unit of convalescent plasma, white blood count 24.6 hemoglobin 14.1 platelet count 181 sodium 136 potassium 5.6 chloride 110 CO2 17 BUN 28 creatinine 1.2 glucose level 165 Objective - Vital Signs Vital signs: Vital Signs Temp 98.7 F 09/29/20 12:00 Pulse 100 09/29/20 15:00 Resp 24 09/29/20 15:00 BP 107/46 09/29/20 15:00 Pulse Ox 93 L 09/29/20 15:00 Intake & Output 09/28/20 09/29/20 09/29/20 18:59 06:59 18:59 Intake Total 3359.880 2782.820 1799.668 Output Total 885 400 155 Balance 2474.880 2382.820 1644.668 Weight 82.6 kg Intake: IV 2810 1800 1483 0.9 Sodium Chloride 140 240 110 Dexamethasone Sod 50 Phosphate 20 mg In Dextrose 5% in Water 50 ml @ 100 mls/hr IV DAILY [facility] Rx#:[id number] Levofloxacin 750Mg-D5w 150 Pmx 750 mg In Dextrose/ Water 1 150ml.bag @ 100 mls/hr IVPB Q48H [facility] Rx#: [id number] Piperacillin-Tazobactam 3 100 .375 gm In Sodium Chloride 0.9% 100 ml @ 25 mls/hr IVPB Q8H [facility] Rx#: [id number] Pressure Bag 33 Sodium Chloride 0.9% 1, 1040 000 ml @ 130 mls/hr IV . Q7H42M [facility] Rx#:[id number] Sodium Chloride 0.9% 1, 1170 1560 000 ml @ 130 mls/hr IV . Q7H42M [facility] Rx#:[id number] Sodium Chloride 0.9% 1, 1500 000 ml @ 999 mls/hr IV . Q1H1M [facility] Rx#:[id number] Intake, IV Titration 357.880 982.820 316.668 Amount Dexmedetomidine/0.9% NaCl 12.733 (Pmx) 400 mcg In Empty Bag 1 bag @ Titrate IV . Q0M [facility] Rx#:[id number] Norepinephrine 4 mg In 254.000 Sodium Chloride 0.9% 250 ml @ 0.05 MCG/KG/MIN 14. 554 mls/hr IV .[id number] [facility] Rx#:[id number] Norepinephrine 8 mg In 13.601 708.628 164.716 Sodium Chloride 0.9% 250 ml @ 0.05 MCG/KG/MIN 7. 392 mls/hr IV .Q24H [facility] Rx#:[id number] propofoL 1,000 mg In 77.546 274.192 151.952 Empty Bag 1 bag @ Titrate IV .Q0M [facility] Rx#: [id number] Blood Product 192 Ffp Pher Conval Covid19 192 Acda 2 Unit [id number] Output: Gastric Drainage 500 Urine 385 400 155 Other: Voiding Method Indwelling Catheter Indwelling Catheter Indwelling Catheter ABP, PAP, CO, CI - Last Documented Arterial Blood Pressure 102/41 - Exam Patient is intubated sedated maintained on mechanical ventilation HEENT head normocephalic and atraumatic Neck is supple no JVD no goiter no lymphadenopathy Chest exam reveals a few scattered rhonchi no wheezing Cardiac exam reveals regular heart sounds no gallops no murmurs Abdomen is soft nontender no organomegaly with normal bowel sounds Extremity exam reveals no edema no cyanosis or clubbing - Labs CBC & Chem 7: 09/29/20 04:55 09/29/20 04:55 Labs: Abnormal Lab Results - Last 24 Hours (Table) 09/28/20 09/28/20 09/28/20 Range/Units 04:01 15:31 15:51 WBC (3.8-10.6) k/uL Hct (34.0-46.0) % MCHC (31.0-37.0) g/dL Neutrophils # (Manual) (1.3-7.7) k/uL ABG pH 7.22 L (7.35-7.45) ABG pCO2 (35-45) mmHg ABG pO2 74 L (83-108) mmHg ABG HCO3 16 L (21-25) mmol/L ABG Total CO2 17 L (19-24) mmol/L ABG O2 Saturation 93.0 L (94-97) % ABG Lactic Acid (0.5-1.6) mmol/L Sodium (137-145) mmol/L Potassium (3.5-5.1) mmol/L Chloride (98-107) mmol/L Carbon Dioxide (22-30) mmol/L BUN (7-17) mg/dL Glucose (74-99) mg/dL POC Glucose (mg/dL) (75-99) mg/dL Hemoglobin A1c (4.0-6.0) % Plasma Lactic Acid Xavier 4.6 H* (0.7-2.0) mmol/L Calcium (8.4-10.2) mg/dL AST (14-36) U/L ALT (4-34) U/L Total Protein (6.3-8.2) g/dL Albumin (3.5-5.0) g/dL Procalcitonin 0.53 H (0.02-0.09) ng/mL 09/28/20 09/28/20 09/29/20 Range/Units 17:03 23:36 04:55 WBC (3.8-10.6) k/uL Hct (34.0-46.0) % MCHC (31.0-37.0) g/dL Neutrophils # (Manual) (1.3-7.7) k/uL ABG pH (7.35-7.45) ABG pCO2 (35-45) mmHg ABG pO2 (83-108) mmHg ABG HCO3 (21-25) mmol/L ABG Total CO2 (19-24) mmol/L ABG O2 Saturation (94-97) % ABG Lactic Acid (0.5-1.6) mmol/L Sodium (137-145) mmol/L Potassium (3.5-5.1) mmol/L Chloride (98-107) mmol/L Carbon Dioxide (22-30) mmol/L BUN (7-17) mg/dL Glucose (74-99) mg/dL POC Glucose (mg/dL) 134 H 142 H (75-99) mg/dL Hemoglobin A1c 7.1 H (4.0-6.0) % Plasma Lactic Acid Xavier (0.7-2.0) mmol/L Calcium (8.4-10.2) mg/dL AST (14-36) U/L ALT (4-34) U/L Total Protein (6.3-8.2) g/dL Albumin (3.5-5.0) g/dL Procalcitonin (0.02-0.09) ng/mL 09/29/20 09/29/20 09/29/20 Range/Units 04:55 04:55 04:55 WBC 24.6 H (3.8-10.6) k/uL Hct 47.0 H (34.0-46.0) % MCHC 30.1 L (31.0-37.0) g/dL Neutrophils # (Manual) 21.60 H (1.3-7.7) k/uL ABG pH (7.35-7.45) ABG pCO2 (35-45) mmHg ABG pO2 (83-108) mmHg ABG HCO3 (21-25) mmol/L ABG Total CO2 (19-24) mmol/L ABG O2 Saturation (94-97) % ABG Lactic Acid (0.5-1.6) mmol/L Sodium 136 L (137-145) mmol/L Potassium 5.6 H (3.5-5.1) mmol/L Chloride 110 H (98-107) mmol/L Carbon Dioxide 17 L (22-30) mmol/L BUN 28 H (7-17) mg/dL Glucose 184 H (74-99) mg/dL POC Glucose (mg/dL) 160 H (75-99) mg/dL Hemoglobin A1c (4.0-6.0) % Plasma Lactic Acid Xavier (0.7-2.0) mmol/L Calcium 7.0 L (8.4-10.2) mg/dL AST 166 H (14-36) U/L ALT 46 H (4-34) U/L Total Protein 5.9 L (6.3-8.2) g/dL Albumin 2.5 L (3.5-5.0) g/dL Procalcitonin (0.02-0.09) ng/mL 09/29/20 09/29/20 09/29/20 Range/Units 05:02 11:40 12:13 WBC (3.8-10.6) k/uL Hct (34.0-46.0) % MCHC (31.0-37.0) g/dL Neutrophils # (Manual) (1.3-7.7) k/uL ABG pH 7.18 L* 7.23 L (7.35-7.45) ABG pCO2 46 H (35-45) mmHg ABG pO2 75 L (83-108) mmHg ABG HCO3 17 L 18 L (21-25) mmol/L ABG Total CO2 18 L (19-24) mmol/L ABG O2 Saturation 98.2 H (94-97) % ABG Lactic Acid (0.5-1.6) mmol/L Sodium (137-145) mmol/L Potassium (3.5-5.1) mmol/L Chloride (98-107) mmol/L Carbon Dioxide (22-30) mmol/L BUN (7-17) mg/dL Glucose (74-99) mg/dL POC Glucose (mg/dL) 175 H (75-99) mg/dL Hemoglobin A1c (4.0-6.0) % Plasma Lactic Acid Xavier (0.7-2.0) mmol/L Calcium (8.4-10.2) mg/dL AST (14-36) U/L ALT (4-34) U/L Total Protein (6.3-8.2) g/dL Albumin (3.5-5.0) g/dL Procalcitonin (0.02-0.09) ng/mL 09/29/20 09/29/20 Range/Units 13:08 13:21 WBC (3.8-10.6) k/uL Hct (34.0-46.0) % MCHC (31.0-37.0) g/dL Neutrophils # (Manual) (1.3-7.7) k/uL ABG pH (7.35-7.45) ABG pCO2 (35-45) mmHg ABG pO2 (83-108) mmHg ABG HCO3 (21-25) mmol/L ABG Total CO2 (19-24) mmol/L ABG O2 Saturation (94-97) % ABG Lactic Acid 2.7 H* (0.5-1.6) mmol/L Sodium (137-145) mmol/L Potassium (3.5-5.1) mmol/L Chloride (98-107) mmol/L Carbon Dioxide (22-30) mmol/L BUN (7-17) mg/dL Glucose (74-99) mg/dL POC Glucose (mg/dL) 165 H (75-99) mg/dL Hemoglobin A1c (4.0-6.0) % Plasma Lactic Acid Xavier (0.7-2.0) mmol/L Calcium (8.4-10.2) mg/dL AST (14-36) U/L ALT (4-34) U/L Total Protein (6.3-8.2) g/dL Albumin (3.5-5.0) g/dL Procalcitonin (0.02-0.09) ng/mL Microbiology - Last 24 Hours (Table) 09/28/20 17:18 Gram Stain - Preliminary Sputum Sputum Culture - Preliminary Assessment and Plan Plan: 1. Acute hypoxic respiratory failure, requiring intubation and mechanical ventilation 2. Poitive Covid 19 testing 3. bilateral pulmonary infiltrates, likely related to pneumonia due to Covid 19 virus 4. Episode of atrial fibrillation with rapid ventricular response 5. Acute lactic acidosis improving 6. Episode of hypotension improved with IV fluid and levophed drip 7. Underlying history of hypertension 8. Underlying history of hyperlipidemia 9. Underlying history of diabetes mellitus Currently patient is intubated sedated maintained on mechanical ventilation She is maintained on IV Decadron and subcu Lovenox Will follow closely prognosis is guarded due to age and severity of illness
[2020-09-29 17:37] LABS: Glucose,Whole Blood 224 mg/dL (75-99)
[2020-09-29 23:41] LABS: Glucose,Whole Blood 157 mg/dL (75-99)
[2020-09-30] MEDS: PIPERACILLIN-TAZOBACTAM 3.375 GM in SODIUM CHLORIDE 0.9% 100 ML IVPB SCH ×3 (02:19→17:55)
[2020-09-30 04:46] LABS: C Reactive Protein 76.3 mg/L (<10.0)
[2020-09-30 05:24] LABS: ABG Base Excess -8.3 mmol/L; ABG HCO3 18 mmol/L (21-25); ABG Oxygen Saturation 95.1 % (94-97); ABG PCO2 37 mmHg (35-45); ABG PO2 72 mmHg (83-108); ABG TCO2 19 mmol/L (19-24); Allen Test Performed? Yes
[2020-09-30 06:15] LABS: Glucose,Whole Blood 151 mg/dL (75-99)
[2020-09-30 06:33] LABS: Calcium 7.2 mg/dL (8.4-10.2); Potassium 4.9 mmol/L (3.5-5.1)
[2020-09-30] MEDS: INSULIN ASPART (NovoLOG) 100 UNIT/ML VIAL SQ SCH ×3 (06:36→18:08)
[2020-09-30 06:42] LABS: HCT 39.7 % (34.0-46.0); HGB 12.6 gm/dL (11.4-16.0); Hypochromasia Slight; MCH 30.8 pg (25.0-35.0); MCHC 31.7 g/dL (31.0-37.0); MCV 97.2 fL (80.0-100.0); Mean Platelet Volume 8.6; Platelet Count 107 k/uL (150-450); RBC 4.08 m/uL (3.80-5.40); RDW 14.3 % (11.5-15.5); WBC 6.6 k/uL (3.8-10.6)
[2020-09-30 07:19] LABS: C Reactive Protein 148.2 mg/L (<10.0)
[2020-09-30] MEDS: ALBUTEROL HFA INHALER INHALATION SCH ×4 (07:38→19:44)
--- NOTE | 2020-09-30 07:43 | XR ---
EXAMINATION TYPE: XR chest 1V portable DATE OF EXAM: 09/30/2020 CLINICAL HISTORY: Difficulty breathing progress study. TECHNIQUE: Single AP portable semiupright view of the chest is obtained. COMPARISON: Chest x-ray from one day earlier and older studies. FINDINGS: Stable endotracheal and orogastric tubes. Stable left internal jugular central venous cath eter. Persistent cardiomegaly with atherosclerotic thoracic aorta. Background reticular interstitial changes bilaterally with increased central and lower lung opacities. Tiny left pleural effusion. Unde rlying scoliotic curvature or positioning. IMPRESSION: Bilateral multifocal infiltrates and/or edema on background cardiomegaly and chronic pare nchymal changes redemonstrated. No significant change from one day earlier.
[2020-09-30] MEDS: CHLORHEXIDINE GLUCONATE 15 ML CUP MUCOUS MEM SCH ×2 (07:50→20:28)
[2020-09-30 08:03] LABS: Band Neutrophils % 2 %; Lymphocytes # (M) 0.59 k/uL (1.0-4.8); Neutrophils % (M) 86 %; Nucleated Red Blood Cells 0 /100 WBC (0-0); Total Cells Counted 100
[2020-09-30] MEDS: NOREPINEPHRINE 8 MG in SODIUM CHLORIDE 0.9% 250 ML IV SCH (09:18)
[2020-09-30] MEDS: ENOXAPARIN 40 MG/0.4 ML SYRINGE SQ SCH (09:20)
[2020-09-30] MEDS: DEXAMETHASONE SOD PHOSPHATE 20 MG in DEXTROSE 5% IN WATER 50 ML IV SCH ×2 (09:20)
[2020-09-30 11:53] LABS: Glucose,Whole Blood 163 mg/dL (75-99)
[2020-09-30] MEDS: SODIUM CHLORIDE 0.9% 1,000 ML IV SCH ×3 (12:34→22:57)
[2020-09-30 12:41] LABS: Glucose,Whole Blood 132 mg/dL (75-99)
--- NOTE | 2020-09-30 14:02 | P.PN ---
Subjective Progress Note Date: 09/30/20 Principal diagnosis: Acute hypoxic respiratory failure secondary to Covid 19 pneumonitis. this 80-year-old female patient, known history of diabetes and hypertension, was brought into the emergency department upon the request of her family because of generalized weakness, falls and confusion x6 days. Her condition declined and the patient decompensated over the past 48-72 hours. This was rather a quick deterioration in her condition. She had been having also shortness of breath for the past 2 days.. In the emergency department, the initial vitals showed that the patient was profoundly hypoxic with a pulse ox of 50%. At that point, the patient also had blood work that showed severe lactic acidosis with a lactic acid level of 11. She wasgiven a chest x-ray that showed diffuse bilateral pulmonary infiltrates. The patient was given a bolus of 1 L of IV fluid and following that she was moved to the intensive care unit. The patient was kept on BiPAP throughout the night and currently she is on a BiPAP pressure of 14/7 cm of water with an FiO2 of 100%. Her FiO2 was 85%. She is responsive, however she is quite tachypneic and she is breathing in the mid 30s and she is struggling with her breathing and earlier this morning she started getting more restless and agitated. We had to start on Precedex which is currently running at 0.4 mcg/kg/h. She seems to be much more comfortable while on Precedex.had a bout of atrial fibrillation with rapid ventricular response in the ICU. The heart rate went up to 170 range. She was given 20 mg of Cardizem IV push. She converted back to normal sinus rhythm. She became hypotensive and her systolic blood pressure in the mid 60s. She was given additional 2 L of IV fluids and the patient is currently on normal saline running at 30 mL an hour. She will be also started on norepinephrine infusion. Lactic acid level is down to 6 based on the follow-up blood work.the blood gas showed a pH of 7.29 with a pCO2 of 37 and pO2 of 80. This was done a bipolar or 14/7 with an FiO2 of 100%. Chest x- ray showing diffuse breath and pulmonary infiltrates. D-dimer is at 1.09. The patient has a LDH of 1724, CRP level is 77, troponin is at 0.118, the proBNP level is 330, the patient has a lactic acid level of 11.4 at time of admission her lactic acid level is down to 6.7 and she has an anion gap metabolic acidosis with a serum bicarb of 14 and a gap of 19. UA is positive for glucose, +4, and COVID19 testing was positive. As such, her presentation is consistent with COVID 19 pneumonia. 09/29/2020, the patient remains intubated on a mechanical ventilator. The patient was intubated yesterday for an acute hypoxic respiratory failure and she was placed on mechanical ventilator she is currently off of a running at 40 mcg/kg per minute. The patient is on no paralytics. She is quite successful mechanical ventilator. She is an assist-control mode at the rate of 30 with a tidal volume of 375 and FiO2 of 60% with a PEEP of this. The chest x-ray from today is showing bilateral perihilar and lower lobe in addition to right upper lobe pulmonary rate. ET tube is in a good location. It is seen around 2 cm above the goyo. The patient also has a left internal jugular. Some today showed a pH of 7.18 with a pCO2 of 46 and pO2 of 108 and this wasn't an FiO2 of 60%. Meanwhile, the patient was quite hypotensive and acidotic and the patient had a very high lactic acid level of 11.4 which dropped down to 4.6 with fluid resuscitation. Overall, the patient received a total of 3 L of IV fluid in the form of normal saline and the patient is currently running at 130s's an hour of normal saline. Urine output is in order of 30-40 mL an hour and the net fluid balance is been +4.8 L over the past 24 hours. As such the patient is well resuscitated. Most recent blood pressure is 95/44 and the patient is currently on pressors at 19 mcg/ per minute of norepinephrine infusion. The procalcitonin level was at 0.53 and blood cultures and sputum cultures were sent and the patient was covered with empiric antibiotics and the patient was given cefepime and Levaquin. White cell count today's at 24. She was given Decadron. She was given convalescent plasma one unit.. The renal function is stable. E lectrolytes are stable. Potassium level is at 5.6 and this needs to be repeated. Serum bicarb is at 17 which is improving. Less lactic acid level from yesterday was at 4.6. The patient's blood sugar is at 160 and she is on sliding scale coverage for blood sugar control. Cardiac rhythm is sinus. No further bouts of atrial fibrillation. She did have one a 1 bouts yesterday prior to intubation and she converted back into normal sinus rhythm without any major difficulties. Patient was reevaluated today on 09/30/2020, remains in the ICU, intubated and mechanically ventilated. Patient is on volume control plus, tidal volume is 450, rate is 24, FiO2 is 60%, PEEP is at 15. ABG showed a pO2 of 72 pCO2 of 37 pH of 7.30. Patient is on propofol at 30 mcg/kg/m, off norepinephrine, IV fluid is at 13 0 mL per hour. Patient is on enteral feeding patient received 1 unit of convalescent plasma she was out of the window for remdesivir, she is on Decadron 20 mg daily, and she is also on Lovenox 40 mg subcu daily. Today, after reviewing her ABG and reviewed her chest x-ray, I felt there is no need to make any major changes in her ventilator settings. Hence no changes were made, and we will plan to continue present supportive care measures. Patient remains empirically on antibiotics. Her bicarb is improving not requiring any bicarb drip. She remains on sliding scale coverage for blood sugar. Presently in sinus rhythm, no further episodes of atrial fibrillation. Chest x-ray continues to show bilateral multifocal infiltrates with cardiomegaly. CBC is relatively normal. D-dimer is 1.77. Basic metabolic profile is normal. Renal profile is normal. LDH is 1814 and C-reactive protein is 76.3. Pro-calcitonin is elevated at 0.74. Levaquin and Zosyn and remain on board. Objective - Vital Signs Vital signs: Vital Signs Temp 98.9 F 09/30/20 12:00 Pulse 84 09/30/20 13:00 Resp 25 H 09/30/20 13:00 BP 99/45 09/30/20 13:00 Pulse Ox 93 L 09/30/20 13:00 Intake & Output 09/29/20 09/30/20 09/30/20 18:59 06:59 18:59 Intake Total 2646.774 2287.039 1197.875 Output Total 370 491 145 Balance 2276.774 3754.388 3145.875 Weight 88.1 kg 88.1 kg Intake: IV 2107 1868 1006 0.9 Sodium Chloride 190 40 Dexamethasone Sod 50 50 Phosphate 20 mg In Dextrose 5% in Water 50 ml @ 100 mls/hr IV DAILY [facility] Rx#:[id number] Levofloxacin 750Mg-D5w 150 Pmx 750 mg In Dextrose/ Water 1 150ml.bag @ 100 mls/hr IVPB Q48H [facility] Rx#: [id number] Piperacillin-Tazobactam 3 100 100 100 .375 gm In Sodium Chloride 0.9% 100 ml @ 25 mls/hr IVPB Q8H [facility] Rx#: [id number] Pressure Bag 57 78 36 Sodium Chloride 0.9% 1, 1560 1690 780 000 ml @ 130 mls/hr IV . Q7H42M [facility] Rx#:[id number] Intake, IV Titration 539.774 219.039 71.875 Amount Norepinephrine 8 mg In 339.774 82.942 1.972 Sodium Chloride 0.9% 250 ml @ 0.05 MCG/KG/MIN 7. 392 mls/hr IV .Q24H [facility] Rx#:[id number] propofoL 1,000 mg In 200.000 136.097 69.903 Empty Bag 1 bag @ Titrate IV .Q0M [facility] Rx#: [id number] Tube Feeding 110 60 Other 90 60 Output: Urine 370 491 145 Other: Voiding Method Indwelling Catheter Indwelling Catheter Indwelling Catheter ABP, PAP, CO, CI - Last Documented Arterial Blood Pressure 99/38 - Exam Physical Exam: Revealed a 80-year-old female in no distress, ventilated, sedated, comfortable. Head: Atraumatic, normocephalic HEENT:[Neck is supple.] [No neck masses.] [No thyromegaly.] [No JVD.] The tracheal tube and orogastric tubes are intact. Chest: [Clear throughout, minimal crackles at the bases no rhonchi and no wheezes. Cardiac Exam: [Normal S1 and S2, no S3 gallop, no murmur.] Abdomen: [Soft, nontender, no megaly, no rebound, no guarding, normal bowel sounds.] Extremities: [No clubbing, no edema, no cyanosis.] Neurological Exam: Could not assess, patient is sedated and maintained on propofol. She is calm and comfortable, pupils are equally reactive to light. Psychiatric: Could not be assessed. Skin: No rashes. - Labs CBC & Chem 7: 09/30/20 03:18 09/30/20 03:18 Labs: Abnormal Lab Results - Last 24 Hours (Table) 09/29/20 09/29/20 09/29/20 Range/Units 04:55 04:55 13:21 Plt Count (150-450) k/uL Lymphocytes # (Manual) (1.0-4.8) k/uL D-Dimer (<0.60) mg/L FEU ABG pH (7.35-7.45) ABG pO2 (83-108) mmHg ABG HCO3 (21-25) mmol/L ABG Lactic Acid 2.7 H* (0.5-1.6) mmol/L Sodium (137-145) mmol/L Potassium (3.5-5.1) mmol/L Chloride (98-107) mmol/L Carbon Dioxide (22-30) mmol/L BUN (7-17) mg/dL Glucose (74-99) mg/dL POC Glucose (mg/dL) (75-99) mg/dL Hemoglobin A1c 7.1 H (4.0-6.0) % Calcium (8.4-10.2) mg/dL Lactate Dehydrogenase 2069 H (313-618) U/L C-Reactive Protein 148.2 H (<10.0) mg/L Procalcitonin (0.02-0.09) ng/mL 09/29/20 09/29/20 09/29/20 Range/Units 17:18 17:36 23:40 Plt Count (150-450) k/uL Lymphocytes # (Manual) (1.0-4.8) k/uL D-Dimer (<0.60) mg/L FEU ABG pH (7.35-7.45) ABG pO2 (83-108) mmHg ABG HCO3 (21-25) mmol/L ABG Lactic Acid (0.5-1.6) mmol/L Sodium (137-145) mmol/L Potassium 5.5 H (3.5-5.1) mmol/L Chloride (98-107) mmol/L Carbon Dioxide (22-30) mmol/L BUN (7-17) mg/dL Glucose (74-99) mg/dL POC Glucose (mg/dL) 224 H 157 H (75-99) mg/dL Hemoglobin A1c (4.0-6.0) % Calcium (8.4-10.2) mg/dL Lactate Dehydrogenase (313-618) U/L C-Reactive Protein (<10.0) mg/L Procalcitonin (0.02-0.09) ng/mL 09/30/20 09/30/20 09/30/20 Range/Units 03:18 03:18 03:18 Plt Count (150-450) k/uL Lymphocytes # (Manual) (1.0-4.8) k/uL D-Dimer 1.77 H (<0.60) mg/L FEU ABG pH (7.35-7.45) ABG pO2 (83-108) mmHg ABG HCO3 (21-25) mmol/L ABG Lactic Acid (0.5-1.6) mmol/L Sodium (137-145) mmol/L Potassium (3.5-5.1) mmol/L Chloride (98-107) mmol/L Carbon Dioxide (22-30) mmol/L BUN (7-17) mg/dL Glucose (74-99) mg/dL POC Glucose (mg/dL) (75-99) mg/dL Hemoglobin A1c (4.0-6.0) % Calcium (8.4-10.2) mg/dL Lactate Dehydrogenase 1814 H (313-618) U/L C-Reactive Protein 76.3 H (<10.0) mg/L Procalcitonin 0.74 H (0.02-0.09) ng/mL 09/30/20 09/30/20 09/30/20 Range/Units 03:18 03:18 05:17 Plt Count 107 L (150-450) k/uL Lymphocytes # (Manual) 0.59 L (1.0-4.8) k/uL D-Dimer (<0.60) mg/L FEU ABG pH 7.30 L (7.35-7.45) ABG pO2 72 L (83-108) mmHg ABG HCO3 18 L (21-25) mmol/L ABG Lactic Acid (0.5-1.6) mmol/L Sodium 136 L (137-145) mmol/L Potassium (3.5-5.1) mmol/L Chloride 115 H (98-107) mmol/L Carbon Dioxide 19 L (22-30) mmol/L BUN 34 H (7-17) mg/dL Glucose 169 H (74-99) mg/dL POC Glucose (mg/dL) (75-99) mg/dL Hemoglobin A1c (4.0-6.0) % Calcium 7.2 L (8.4-10.2) mg/dL Lactate Dehydrogenase (313-618) U/L C-Reactive Protein (<10.0) mg/L Procalcitonin (0.02-0.09) ng/mL 09/30/20 09/30/20 09/30/20 Range/Units 06:14 11:52 12:39 Plt Count (150-450) k/uL Lymphocytes # (Manual) (1.0-4.8) k/uL D-Dimer (<0.60) mg/L FEU ABG pH (7.35-7.45) ABG pO2 (83-108) mmHg ABG HCO3 (21-25) mmol/L ABG Lactic Acid (0.5-1.6) mmol/L Sodium (137-145) mmol/L Potassium (3.5-5.1) mmol/L Chloride (98-107) mmol/L Carbon Dioxide (22-30) mmol/L BUN (7-17) mg/dL Glucose (74-99) mg/dL POC Glucose (mg/dL) 151 H 163 H 132 H (75-99) mg/dL Hemoglobin A1c (4.0-6.0) % Calcium (8.4-10.2) mg/dL Lactate Dehydrogenase (313-618) U/L C-Reactive Protein (<10.0) mg/L Procalcitonin (0.02-0.09) ng/mL Microbiology - Last 24 Hours (Table) 09/28/20 16:43 Blood Culture - Preliminary Blood No Growth after 24 hours 09/28/20 17:18 Gram Stain - Preliminary Sputum Sputum Culture - Preliminary Assessment and Plan Assessment: Impression: Acute hypoxic respiratory failure secondary to covid 19 pneumonitis. Lymphopenia with thrombocytopenia secondary to above. Elevated inflammatory markers Type 2 diabetes. Benign essential hypertension. Paroxysmal atrial fibrillation. Hypovolemic hypotension, responded well to IV fluids. Required pressors for a brief period of time. Recommendation: Continue ventilatory support. No changes were recommended today Continue Covid 19 cocktail. Continue Decadron. Patient was not a candidate for remdesivir and [id number]. Patient received 2 units of convalescent plasma. Continue nutritional support. Continue GI and DVT prophylaxis. Patient is critically ill, considering her ventilatory settings high PEEP and high FiO2, not ready for any form of weaning. Critical care time is 35 minutes. We'll continue to follow. Time with Patient: Greater than 30
[2020-09-30] MEDS ORDERED: FUROSEMIDE 10 MG/ML 4 ML VIAL IV STA (15:33)
[2020-09-30 18:05] LABS: Glucose,Whole Blood 155 mg/dL (75-99)
--- NOTE | 2020-09-30 19:23 | P.PN ---
Subjective Progress Note Date: 09/30/20 Ann-Marie Molina, is a 80-year-old female patient of Dr. Esquivel, who presented to [facility] emergency room with a chief complaint of worsening shortness of breath generalized weakness and confusion, symptoms started about 6 days prior to admission but her condition declined significantly in the last 2 days. Patient was evaluated in emergency room vital examination on presentation revealed a temperature of 98.4 pulse 133 respiration 30 blood pressure 135/67 pulse ox 55% on room air her white blood count was 3.8 hemoglobin 15.9 platelet count 99 sodium 133 potassium 4.5 plasma lactic acid 11.4 BUN 17 creatinine 0.9 arterial blood gases revealed a pH of 7.19 pCO2 49 by mouth to 59 . Chest x-ray done in the emergency room revealed moderate pulmonary edema that could relate to congestive heart failure or ARDS , EKG revealed sinus tachycardia with right bundle branch block , coronavirus PCR was positive. patient was admitted to intensive care unit she was started on BiPAP. Patient developed atrial fibrillation with rapid ventricular response with a heart rate of 170 she was started on Cardizem drip, she had episodes of hypotension, she was started on levophed drip, and earlier this morning she required intubation and mechanical ventilation. Her past medical history is significant for history of hypertension, history of hyperlipidemia, history of insulin-dependent diabetes mellitus, and history of osteoporosis On 09/29/2020 patient was seen and examined in the ICU she is intubated sedated maintained on mechanical ventilation she is on assist control rate of 30 FiO2 60% and a PEEP of 15. PH is 7.18 pCO2 46 by mouth 08/26/2007 lactic acid is down to 4.6 blood pressure 100/52 she is still maintained on levophed infusion, she is maintained on IV Decadron she received 1 unit of convalescent plasma, white blood count 24.6 hemoglobin 14.1 platelet count 181 sodium 136 potassium 5.6 chloride 110 CO2 17 BUN 28 creatinine 1.2 glucose level 165 On 09/30/2020 patient was seen and examined in the ICU she is intubated sedated maintained on mechanical ventilation, today she was taken off of vasopressors and has been tolerating well blood pressure at this time 98/55, pH is 7.30 pCO2 37 by mouth to 72 white blood count is down to 6.6 hemoglobin 12.6 platelet cou nt 107 d-dimer is 1.77 BUN 34 creatinine 0.96 Objective - Vital Signs Vital signs: Vital Signs Temp 99.1 F 09/30/20 08:00 Pulse 87 09/30/20 11:00 Resp 26 H 09/30/20 11:00 BP 102/49 09/30/20 10:30 Pulse Ox 93 L 09/30/20 11:00 Intake & Output 09/29/20 09/30/20 09/30/20 18:59 06:59 18:59 Intake Total 2646.774 2287.039 875.086 Output Total 370 491 90 Balance 2276.774 1796.039 785.086 Weight 88.1 kg 88.1 kg Intake: IV 2107 1868 734 0.9 Sodium Chloride 190 40 Dexamethasone Sod 50 50 Phosphate 20 mg In Dextrose 5% in Water 50 ml @ 100 mls/hr IV DAILY [facility] Rx#:[id number] Levofloxacin 750Mg-D5w 150 Pmx 750 mg In Dextrose/ Water 1 150ml.bag @ 100 mls/hr IVPB Q48H [facility] Rx#: [id number] Piperacillin-Tazobactam 3 100 100 100 .375 gm In Sodium Chloride 0.9% 100 ml @ 25 mls/hr IVPB Q8H [facility] Rx#: [id number] Pressure Bag 57 78 24 Sodium Chloride 0.9% 1, 1560 1690 520 000 ml @ 130 mls/hr IV . Q7H42M [facility] Rx#:[id number] Intake, IV Titration 539.774 219.039 71.086 Amount Norepinephrine 8 mg In 339.774 82.942 1.183 Sodium Chloride 0.9% 250 ml @ 0.05 MCG/KG/MIN 7. 392 mls/hr IV .Q24H [facility] Rx#:[id number] propofoL 1,000 mg In 200.000 136.097 69.903 Empty Bag 1 bag @ Titrate IV .Q0M [facility] Rx#: [id number] Tube Feeding 110 40 Other 90 30 Output: Urine 370 491 90 Other: Voiding Method Indwelling Catheter Indwelling Catheter Indwelling Catheter ABP, PAP, CO, CI - Last Documented Arterial Blood Pressure 104/37 - Exam Patient is intubated sedated maintained on mechanical ventilation HEENT head normocephalic and atraumatic Neck is supple no JVD no goiter no lymphadenopathy Chest exam reveals a few scattered rhonchi no wheezing Cardiac exam reveals regular heart sounds no gallops no murmurs Abdomen is soft nontender no organomegaly with normal bowel sounds Extremity exam reveals no edema no cyanosis or clubbing - Labs CBC & Chem 7: 09/30/20 03:18 09/30/20 03:18 Labs: Abnormal Lab Results - Last 24 Hours (Table) 09/29/20 09/29/20 09/29/20 Range/Units 04:55 04:55 13:08 Plt Count (150-450) k/uL Lymphocytes # (Manual) (1.0-4.8) k/uL D-Dimer (<0.60) mg/L FEU ABG pH (7.35-7.45) ABG pO2 (83-108) mmHg ABG HCO3 (21-25) mmol/L ABG Lactic Acid (0.5-1.6) mmol/L Sodium (137-145) mmol/L Potassium (3.5-5.1) mmol/L Chloride (98-107) mmol/L Carbon Dioxide (22-30) mmol/L BUN (7-17) mg/dL Glucose (74-99) mg/dL POC Glucose (mg/dL) 165 H (75-99) mg/dL Hemoglobin A1c 7.1 H (4.0-6.0) % Calcium (8.4-10.2) mg/dL Lactate Dehydrogenase 2069 H (313-618) U/L C-Reactive Protein 148.2 H (<10.0) mg/L Procalcitonin (0.02-0.09) ng/mL 09/29/20 09/29/20 09/29/20 Range/Units 13:21 17:18 17:36 Plt Count (150-450) k/uL Lymphocytes # (Manual) (1.0-4.8) k/uL D-Dimer (<0.60) mg/L FEU ABG pH (7.35-7.45) ABG pO2 (83-108) mmHg ABG HCO3 (21-25) mmol/L ABG Lactic Acid 2.7 H* (0.5-1.6) mmol/L Sodium (137-145) mmol/L Potassium 5.5 H (3.5-5.1) mmol/L Chloride (98-107) mmol/L Carbon Dioxide (22-30) mmol/L BUN (7-17) mg/dL Glucose (74-99) mg/dL POC Glucose (mg/dL) 224 H (75-99) mg/dL Hemoglobin A1c (4.0-6.0) % Calcium (8.4-10.2) mg/dL Lactate Dehydrogenase (313-618) U/L C-Reactive Protein (<10.0) mg/L Procalcitonin (0.02-0.09) ng/mL 09/29/20 09/30/20 09/30/20 Range/Units 23:40 03:18 03:18 Plt Count (150-450) k/uL Lymphocytes # (Manual) (1.0-4.8) k/uL D-Dimer 1.77 H (<0.60) mg/L FEU ABG pH (7.35-7.45) ABG pO2 (83-108) mmHg ABG HCO3 (21-25) mmol/L ABG Lactic Acid (0.5-1.6) mmol/L Sodium (137-145) mmol/L Potassium (3.5-5.1) mmol/L Chloride (98-107) mmol/L Carbon Dioxide (22-30) mmol/L BUN (7-17) mg/dL Glucose (74-99) mg/dL POC Glucose (mg/dL) 157 H (75-99) mg/dL Hemoglobin A1c (4.0-6.0) % Calcium (8.4-10.2) mg/dL Lactate Dehydrogenase (313-618) U/L C-Reactive Protein (<10.0) mg/L Procalcitonin 0.74 H (0.02-0.09) ng/mL 09/30/20 09/30/20 09/30/20 Range/Units 03:18 03:18 03:18 Plt Count 107 L (150-450) k/uL Lymphocytes # (Manual) 0.59 L (1.0-4.8) k/uL D-Dimer (<0.60) mg/L FEU ABG pH (7.35-7.45) ABG pO2 (83-108) mmHg ABG HCO3 (21-25) mmol/L ABG Lactic Acid (0.5-1.6) mmol/L Sodium 136 L (137-145) mmol/L Potassium (3.5-5.1) mmol/L Chloride 115 H (98-107) mmol/L Carbon Dioxide 19 L (22-30) mmol/L BUN 34 H (7-17) mg/dL Glucose 169 H (74-99) mg/dL POC Glucose (mg/dL) (75-99) mg/dL Hemoglobin A1c (4.0-6.0) % Calcium 7.2 L (8.4-10.2) mg/dL Lactate Dehydrogenase 1814 H (313-618) U/L C-Reactive Protein 76.3 H (<10.0) mg/L Procalcitonin (0.02-0.09) ng/mL 09/30/20 09/30/20 09/30/20 Range/Units 05:17 06:14 11:52 Plt Count (150-450) k/uL Lymphocytes # (Manual) (1.0-4.8) k/uL D-Dimer (<0.60) mg/L FEU ABG pH 7.30 L (7.35-7.45) ABG pO2 72 L (83-108) mmHg ABG HCO3 18 L (21-25) mmol/L ABG Lactic Acid (0.5-1.6) mmol/L Sodium (137-145) mmol/L Potassium (3.5-5.1) mmol/L Chloride (98-107) mmol/L Carbon Dioxide (22-30) mmol/L BUN (7-17) mg/dL Glucose (74-99) mg/dL POC Glucose (mg/dL) 151 H 163 H (75-99) mg/dL Hemoglobin A1c (4.0-6.0) % Calcium (8.4-10.2) mg/dL Lactate Dehydrogenase (313-618) U/L C-Reactive Protein (<10.0) mg/L Procalcitonin (0.02-0.09) ng/mL Microbiology - Last 24 Hours (Table) 09/28/20 16:43 Blood Culture - Preliminary Blood No Growth after 24 hours 09/28/20 17:18 Gram Stain - Preliminary Sputum Sputum Culture - Preliminary Assessment and Plan Plan: 1. Acute hypoxic respiratory failure, requiring intubation and mechanical ventilation 2. Poitive Covid 19 testing 3. bilateral pulmonary infiltrates, likely related to pneumonia due to Covid 19 virus 4. Episode of atrial fibrillation with rapid ventricular response 5. Acute lactic acidosis improving 6. Episode of hypotension improved with IV fluid and levophed drip 7. Underlying history of hypertension 8. Underlying history of hyperlipidemia 9. Underlying history of diabetes mellitus Currently patient is intubated sedated maintained on mechanical ventilation She is maintained on IV Decadron and subcu Lovenox Will follow closely prognosis is guarded due to age and severity of illness
[2020-10-01 00:05] LABS: Glucose,Whole Blood 167 mg/dL (75-99)
[2020-10-01] MEDS: INSULIN ASPART (NovoLOG) 100 UNIT/ML VIAL SQ SCH ×4 (00:31→17:50)
[2020-10-01] MEDS: SODIUM CHLORIDE 0.9% 1,000 ML IV SCH ×4 (01:48→21:23)
[2020-10-01] MEDS: PIPERACILLIN-TAZOBACTAM 3.375 GM in SODIUM CHLORIDE 0.9% 100 ML IVPB SCH ×3 (01:53→17:50)
[2020-10-01 04:48] LABS: C Reactive Protein 47.3 mg/L (<10.0); Calcium 7.7 mg/dL (8.4-10.2); Potassium 4.9 mmol/L (3.5-5.1); Total Bilirubin 1.1 mg/dL (0.2-1.3)
[2020-10-01 05:36] LABS: ABG Base Excess -8.3 mmol/L; ABG HCO3 19 mmol/L (21-25); ABG Oxygen Saturation 94.9 % (94-97); ABG PCO2 42 mmHg (35-45); ABG PH 7.26 (7.35-7.45); ABG PO2 76 mmHg (83-108); ABG TCO2 20 mmol/L (19-24); Allen Test Performed? Yes
[2020-10-01 05:36] LABS: HGB 12.6 gm/dL (11.4-16.0); Hypochromasia Slight; MCH 30.5 pg (25.0-35.0); MCHC 31.3 g/dL (31.0-37.0); MCV 97.2 fL (80.0-100.0); Platelet Count 102 k/uL (150-450); RBC 4.12 m/uL (3.80-5.40); RDW 14.5 % (11.5-15.5); WBC 5.8 k/uL (3.8-10.6)
[2020-10-01 06:22] LABS: Glucose,Whole Blood 202 mg/dL (75-99)
[2020-10-01 07:25] LABS: Band Neutrophils % 6 %; Lymphocytes # (M) 0.46 k/uL (1.0-4.8); Metamyelocytes # (M) 0.06 k/uL (0); Metamyelocytes % 1 %; Monocytes # (M) 0.23 k/uL (0-1.0); Neutrophils % (M) 82 %; Nucleated Red Blood Cells 0 /100 WBC (0-0); Total Cells Counted 200
[2020-10-01 07:26] LABS: Anisocytosis (M) Present
[2020-10-01 07:27] LABS: Polychromasia Present
[2020-10-01] MEDS: ALBUTEROL HFA INHALER INHALATION SCH ×4 (07:29→19:06)
[2020-10-01 07:44] LABS: Large Platelets Present
[2020-10-01] MEDS: CHLORHEXIDINE GLUCONATE 15 ML CUP MUCOUS MEM SCH ×2 (08:30→21:16)
[2020-10-01] MEDS: ENOXAPARIN 40 MG/0.4 ML SYRINGE SQ SCH (08:31)
[2020-10-01] MEDS: LEVOFLOXACIN 750MG-D5W PMX 750 MG in DEXTROSE/WATER 1 150ML.BAG IVPB SCH (08:31)
[2020-10-01] MEDS: DEXAMETHASONE SOD PHOSPHATE 20 MG in DEXTROSE 5% IN WATER 50 ML IV SCH ×2 (08:51)
--- NOTE | 2020-10-01 09:02 | XR ---
EXAMINATION TYPE: XR chest 1V portable DATE OF EXAM: 10/01/2020 COMPARISON: Chest x-ray 09/30/2020 HISTORY: Intubated TECHNIQUE: Single frontal view of the chest is obtained. FINDINGS: Endotracheal tube, NG tube, left jugular central venous catheter are overlying appropriate positions, there are overlying leads. Bilateral airspace disease, interstitial prominence is present , vague basilar density persists. No evident pneumothorax. Heart and mediastinal silhouette is likely stable. Aorta is dense. IMPRESSION: Findings are similar to prior exam. Correlate for pneumonia, pulmonary edema, ARDS
[2020-10-01] MEDS ORDERED: SODIUM CHLORIDE 0.9% 1,000 ML IV ONE (10:01)
[2020-10-01] MEDS: SODIUM BICARBONATE TAB 650 MG TAB PO SCH ×3 (10:35→21:23)
[2020-10-01] MEDS: PANTOPRAZOLE 40 MG/10 ML VIAL IVP SCH (11:08)
[2020-10-01 11:22] LABS: Glucose,Whole Blood 204 mg/dL (75-99)
[2020-10-01] MEDS: ASCORBIC ACID 500 MG TAB PO SCH (11:51)
[2020-10-01] MEDS: CHOLECALCIFEROL 25 MCG (1000 IU) TABLET PO SCH (11:52)
[2020-10-01] MEDS: ZINC SULFATE 220 MG CAP PO SCH (11:52)
--- NOTE | 2020-10-01 12:56 | CDI ---
Documentation Clarification Form Date: 10/01/2020 12:53:45 PM From: María Elena Kaplan RN, CCDS Admit Date: 09/28/2020 01:38:00 AM Patient Name: Ann-Marie Molina Visit Number: [id number] ATTENTION: The Clinical Documentation Specialists (CDI) and [facility] Coding Staff appreciate your assistance in clarifying documentation. Please respond to the clarification below the line at the bottom and electronically sign. The CDI & [facility] Coding staff will review the response and follow-up if needed. Please note: Queries are made part of the Legal Health Record. If you have any questions, please contact the author of this message via ITS. Dr. Agustina Aviles Hypotension is documented in a patient with known Covid infection, maintained on vasopressors. Please provide clinical significance to help accurately reflect the patient's SOI/ROM. Patient history/risk factors: Paroxysmal Atrial fib with RVR, HTN, grade 2 diastolic heart failure, Acute Covid 19 pneumonia with acute hypoxic respiratory failure Clinical Indicators: 09/28 H&P-09/30 Attending Progress notes: "Patient developed atrial fibrillation with rapid ventricular response with a heart rate of 170 she was started on Cardizem drip, she had episodes of hypotension, she was started on Levophed drip, and earlier this morning she required intubation and mechanical ventilation. Plan: Episode of hypotension improved with IV fluid and Levophed drip." 09/29 Pulmonary Progress note: "2 hypotension, resuscitated IV fluids, received a total of 3 L and currently normal saline running at 130s's an hour. Consider underlying septic event or sepsis induced hypotension." 09/30 Pulmonary Progress note: Hypovolemic hypotension, responded well to IV fluids. Required pressors for a brief period of time." 09/29 799 Vitals: temp 98.3, HR 76, RR 27, B/P 87/39, Spo2 88% on 100% FIO2 Bipap Treatment: 09/28 0849- current: Levophed Gtt titrate for B/P 3 0.9% NS IVF bolus 1L followed by 130 cc/hr. 09/28 0.9% NS IVF bolus 3L followed by 130 cc/hr. 10/01 0.9% NS IVF bolus 1L followed by 130 cc/hr. In your professional opinion, can you please further specify the hypotension and cause if known? Septic Shock Suspected or known causative organism Any associated organ failure Cardiogenic Shock Cause Hypovolemic Shock Cause Other, please specify Unable to determine (Last Revision: April 2017) MTDD
--- NOTE | 2020-10-01 13:13 | CDI ---
Documentation Clarification Form Date: 10/01/2020 12:58:00 PM From: María Elena Kaplan RN, CCDS Admit Date: 09/28/2020 01:38:00 AM Patient Name: Ann-Marie Molina Visit Number: [id number] ATTENTION: The Clinical Documentation Specialists (CDI) and [facility] Coding Staff appreciate your assistance in clarifying documentation. Please respond to the clarification below the line at the bottom and electronically sign. The CDI & [facility] Coding staff will review the response and follow-up if needed. Please note: Queries are made part of the Legal Health Record. If you have any questions, please contact the author of this message via ITS. Dr. Nereida Redd Altered Mental Status was documented in the 09/27 ED note and 09/28 Pulmonary consult and requires further specificity. History/Risk Factors: Acute Covid 19 pneumonia with acute hypoxic respiratory failure, Paroxysmal Atrial Fib, Acute lactic acidosis, hypotension requiring vasopressors, DM2, HTN Clinical Indicators: 09/28 Pulmonary consult: "acute hypoxic respiratory failure secondary to: 90 related pneumonia. The patient is currently on BiPAP at a pressure of 14/7 with an FiO2 of 100%. She remains quite hypoxic, not responding to BiPAP and she would obviously need intubation mechanical ventilation. The patient had rapid decline in her overall condition over the past 6 days, worse over the past 48 hours. Chest x-ray showing diffuse bilaterally pulmonary infiltrates consistent with mobility related pneumonia. 2 acute shortness of breath secondary to above. 3 altered mental status secondary to above." 09/28 H&P-09/30 Attending progress notes: "chief complaint of worsening shortness of breath generalized weakness and confusion, symptoms started about 6 days prior to admission but her condition declined significantly in the last 2 days." 09/27-10/01 Labs: Coronavirus PCR Detected, Lactic acid 11.4/6.7/4.8/4.6, D-Dimer: 1.09/1.77/6.82, K+ 4.5/5.5/4.9, AST 207/166/71, ALT 62/46/38, LDH 1724/2069/1814/1473, CK 454/186, CRP 77/148.2/76.3/47.3 10/01 CXR: "Findings are similar to prior exam. Correlate for pneumonia, pulmonary edema, ARDS." Treatment: Dexmedetomidine Gtt for Sedation 09/29 IV Levaquin 750 mg IVPB x 1 dose MS 4 mg IVP Q2 hrs. PRN Pain 09/28 0849- current: Levophed Gtt titrate for B/P 09/27 0.9% NS IVF bolus 1L followed by 130 cc/hr. 09/28 0.9% NS IVF bolus 3L followed by 130 cc/hr. 10/01 0.9% NS IVF bolus 1L followed by 130 cc/hr. In your professional opinion, please clarify the etiology of the Altered Mental Status, if known. Metabolic Encephalopathy (specify Underlying Medical Illness) Toxic Encephalopathy (specify Underlying Medical Illness) Other condition (please specify) Unable to determine (Last Revision: October 2017) metabolic encephalopathy secondary to acute hypoxic respiratory failure secondary to Covid 19 infection MTDD
--- NOTE | 2020-10-01 14:13 | P.PN ---
Subjective Progress Note Date: 10/01/20 Principal diagnosis: Acute hypoxic respiratory failure secondary to Covid 19 pneumonitis. this 80-year-old female patient, known history of diabetes and hypertension, was brought into the emergency department upon the request of her family because of generalized weakness, falls and confusion x6 days. Her condition declined and the patient decompensated over the past 48-72 hours. This was rather a quick deterioration in her condition. She had been having also shortness of breath for the past 2 days.. In the emergency department, the initial vitals showed that the patient was profoundly hypoxic with a pulse ox of 50%. At that point, the patient also had blood work that showed severe lactic acidosis with a lactic acid level of 11. She wasgiven a chest x-ray that showed diffuse bilateral pulmonary infiltrates. The patient was given a bolus of 1 L of IV fluid and following that she was moved to the intensive care unit. The patient was kept on BiPAP throughout the night and currently she is on a BiPAP pressure of 14/7 cm of water with an FiO2 of 100%. Her FiO2 was 85%. She is responsive, however she is quite tachypneic and she is breathing in the mid 30s and she is struggling with her breathing and earlier this morning she started getting more restless and agitated. We had to start on Precedex which is currently running at 0.4 mcg/kg/h. She seems to be much more comfortable while on Precedex.had a bout of atrial fibrillation with rapid ventricular response in the ICU. The heart rate went up to 170 range. She was given 20 mg of Cardizem IV push. She converted back to normal sinus rhythm. She became hypotensive and her systolic blood pressure in the mid 60s. She was given additional 2 L of IV fluids and the patient is currently on normal saline running at 30 mL an hour. She will be also started on norepinephrine infusion. Lactic acid level is down to 6 based on the follow-up blood work.the blood gas showed a pH of 7.29 with a pCO2 of 37 and pO2 of 80. This was done a bipolar or 14/7 with an FiO2 of 100%. Chest x- ray showing diffuse breath and pulmonary infiltrates. D-dimer is at 1.09. The patient has a LDH of 1724, CRP level is 77, troponin is at 0.118, the proBNP level is 330, the patient has a lactic acid level of 11.4 at time of admission her lactic acid level is down to 6.7 and she has an anion gap metabolic acidosis with a serum bicarb of 14 and a gap of 19. UA is positive for glucose, +4, and COVID19 testing was positive. As such, her presentation is consistent with COVID 19 pneumonia. 09/29/2020, the patient remains intubated on a mechanical ventilator. The patient was intubated yesterday for an acute hypoxic respiratory failure and she was placed on mechanical ventilator she is currently off of a running at 40 mcg/kg per minute. The patient is on no paralytics. She is quite successful mechanical ventilator. She is an assist-control mode at the rate of 30 with a tidal volume of 375 and FiO2 of 60% with a PEEP of this. The chest x-ray from today is showing bilateral perihilar and lower lobe in addition to right upper lobe pulmonary rate. ET tube is in a good location. It is seen around 2 cm above the goyo. The patient also has a left internal jugular. Some today showed a pH of 7.18 with a pCO2 of 46 and pO2 of 108 and this wasn't an FiO2 of 60%. Meanwhile, the patient was quite hypotensive and acidotic and the patient had a very high lactic acid level of 11.4 which dropped down to 4.6 with fluid resuscitation. Overall, the patient received a total of 3 L of IV fluid in the form of normal saline and the patient is currently running at 130s's an hour of normal saline. Urine output is in order of 30-40 mL an hour and the net fluid balance is been +4.8 L over the past 24 hours. As such the patient is well resuscitated. Most recent blood pressure is 95/44 and the patient is currently on pressors at 19 mcg/ per minute of norepinephrine infusion. The procalcitonin level was at 0.53 and blood cultures and sputum cultures were sent and the patient was covered with empiric antibiotics and the patient was given cefepime and Levaquin. White cell count today's at 24. She was given Decadron. She was given convalescent plasma one unit.. The renal function is stable. E lectrolytes are stable. Potassium level is at 5.6 and this needs to be repeated. Serum bicarb is at 17 which is improving. Less lactic acid level from yesterday was at 4.6. The patient's blood sugar is at 160 and she is on sliding scale coverage for blood sugar control. Cardiac rhythm is sinus. No further bouts of atrial fibrillation. She did have one a 1 bouts yesterday prior to intubation and she converted back into normal sinus rhythm without any major difficulties. Patient was reevaluated today on 09/30/2020, remains in the ICU, intubated and mechanically ventilated. Patient is on volume control plus, tidal volume is 450, rate is 24, FiO2 is 60%, PEEP is at 15. ABG showed a pO2 of 72 pCO2 of 37 pH of 7.30. Patient is on propofol at 30 mcg/kg/m, off norepinephrine, IV fluid is at 13 0 mL per hour. Patient is on enteral feeding patient received 1 unit of convalescent plasma she was out of the window for remdesivir, she is on Decadron 20 mg daily, and she is also on Lovenox 40 mg subcu daily. Today, after reviewing her ABG and reviewed her chest x-ray, I felt there is no need to make any major changes in her ventilator settings. Hence no changes were made, and we will plan to continue present supportive care measures. Patient remains empirically on antibiotics. Her bicarb is improving not requiring any bicarb drip. She remains on sliding scale coverage for blood sugar. Presently in sinus rhythm, no further episodes of atrial fibrillation. Chest x-ray continues to show bilateral multifocal infiltrates with cardiomegaly. CBC is relatively normal. D-dimer is 1.77. Basic metabolic profile is normal. Renal profile is normal. LDH is 1814 and C-reactive protein is 76.3. Pro-calcitonin is elevated at 0.74. Levaquin and Zosyn and remain on board. Reevaluated today on 10/01/2020, patient remains in the ICU, intubated and mechanically ventilated. She is on assist control rate of 24 tidal volume is 450 FiO2 is 55% PEEP is 15. ABG showed a pO2 of 76 pCO2 of 42 pH of 7.26. Has patient was placed on oral bicarb. Patient is on propofol at 56 mcg/kg/m, norepinephrine at 0.03 mcg/kg/m, she is on tube feeding, patient will receive 1 L of fluid bolus in the formal 0.9 normal saline, and hopefully wean norepinephrine down and possibly discontinue. Chest x-ray continues to show bilateral infiltrates. And again her ABG is marginal on 60% FiO2 her pO2 was only 76. FiO2 was decreased down to 55%. No major change coordinator the last 24 hours, patient is basically about the same. CBC is relatively normal. D-dimer 6.82. Basic metabolic profile is normal. Renal profile is normal. LDH is 1473 and C-reactive protein is 47.3. Patient remains on the Covid 19 cocktails. Remains on Decadron 20 mg IV push daily, remains on Zosyn and Levaquin. Sputum cultures are negative. Hence we will discontinue Levaquin and continue Zosyn Objective - Vital Signs Vital signs: Vital Signs Temp 97.6 F 10/01/20 12:00 Pulse 89 10/01/20 13:00 Resp 24 10/01/20 13:00 BP 121/57 10/01/20 12:00 Pulse Ox 91 L 10/01/20 13:00 Intake & Output 09/30/20 10/01/20 10/01/20 18:59 06:59 18:59 Intake Total 2007.875 2354.405 2541.111 Output Total 815 810 520 Balance 2240.601 2170.405 2021.111 Weight 88.1 kg 86 kg Intake: IV 1726 1752 1218.0 0.9 Sodium Chloride 90 120 80 Dexamethasone Sod 50 50 Phosphate 20 mg In Dextrose 5% in Water 50 ml @ 100 mls/hr IV DAILY [facility] Rx#:[id number] Levofloxacin 750Mg-D5w 150 Pmx 750 mg In Dextrose/ Water 1 150ml.bag @ 100 mls/hr IVPB Q48H [facility] Rx#: [id number] Piperacillin-Tazobactam 3 100 50.0 .375 gm In Sodium Chloride 0.9% 100 ml @ 25 mls/hr IVPB Q8H [facility] Rx#: [id number] Pressure Bag 66 72 48 Sodium Chloride 0.9% 1, 1420 1560 840 000 ml @ 130 mls/hr IV . Q7H42M [facility] Rx#:[id number] Intake, IV Titration 71.875 659.085 1568.111 Amount Norepinephrine 8 mg In 1.972 72.807 38.215 Sodium Chloride 0.9% 250 ml @ 0.05 MCG/KG/MIN 7. 392 mls/hr IV .Q24H [facility] Rx#:[id number] Piperacillin-Tazobactam 3 100 .375 gm In Sodium Chloride 0.9% 100 ml @ 25 mls/hr IVPB Q8H [facility] Rx#: [id number] Sodium Chloride 0.9% 1, 1000 000 ml @ 999 mls/hr IV . Q1H1M [facility] Rx#:[id number] propofoL 1,000 mg In 69.903 3.598 0.896 Empty Bag 1 bag @ Titrate IV .Q0M [facility] Rx#: [id number] Tube Feeding 120 336 224 Other 90 90 60 Output: Urine 815 810 520 Other: Voiding Method Indwelling Catheter Indwelling Catheter Indwelling Catheter ABP, PAP, CO, CI - Last Documented Arterial Blood Pressure 107/45 - Exam Physical Exam: Revealed a 80-year-old female in no distress, ventilated, sedated, comfortable. Head: Atraumatic, normocephalic HEENT:[Neck is supple.] [No neck masses.] [No thyromegaly.] [No JVD.] endo tracheal tube and orogastric tubes are intact. Chest: [Clear throughout, minimal crackles at the bases no rhonchi and no whe ezes. Cardiac Exam: [Normal S1 and S2, no S3 gallop, no murmur.] Abdomen: [Soft, nontender, no megaly, no rebound, no guarding, normal bowel sounds.] Extremities: [No clubbing, no edema, no cyanosis.] Neurological Exam: Could not assess, patient is sedated and maintained on propofol. She is calm and comfortable, pupils are equally reactive to light. Psychiatric: Could not be assessed. Skin: No rashes. - Labs CBC & Chem 7: 10/01/20 04:05 10/01/20 04:05 Labs: Abnormal Lab Results - Last 24 Hours (Table) 09/30/20 10/01/20 10/01/20 Range/Units 18:04 00:04 04:05 Plt Count (150-450) k/uL Lymphocytes # (Manual) (1.0-4.8) k/uL Metamyelocytes # (Man) (0) k/uL D-Dimer 6.82 H (<0.60) mg/L FEU ABG pH (7.35-7.45) ABG pO2 (83-108) mmHg ABG HCO3 (21-25) mmol/L Chloride (98-107) mmol/L Carbon Dioxide (22-30) mmol/L BUN (7-17) mg/dL Glucose (74-99) mg/dL POC Glucose (mg/dL) 155 H 167 H (75-99) mg/dL Calcium (8.4-10.2) mg/dL AST (14-36) U/L ALT (4-34) U/L Lactate Dehydrogenase (313-618) U/L Creatine Kinase (30-135) U/L C-Reactive Protein (<10.0) mg/L Total Protein (6.3-8.2) g/dL Albumin (3.5-5.0) g/dL 10/01/20 10/01/20 10/01/20 Range/Units 04:05 04:05 05:30 Plt Count 102 L (150-450) k/uL Lymphocytes # (Manual) 0.46 L (1.0-4.8) k/uL Metamyelocytes # (Man) 0.06 H (0) k/uL D-Dimer (<0.60) mg/L FEU ABG pH 7.26 L (7.35-7.45) ABG pO2 76 L (83-108) mmHg ABG HCO3 19 L (21-25) mmol/L Chloride 118 H (98-107) mmol/L Carbon Dioxide 19 L (22-30) mmol/L BUN 37 H (7-17) mg/dL Glucose 211 H (74-99) mg/dL POC Glucose (mg/dL) (75-99) mg/dL Calcium 7.7 L (8.4-10.2) mg/dL AST 71 H (14-36) U/L ALT 38 H (4-34) U/L Lactate Dehydrogenase 1473 H (313-618) U/L Creatine Kinase 186 H (30-135) U/L C-Reactive Protein 47.3 H (<10.0) mg/L Total Protein 5.0 L (6.3-8.2) g/dL Albumin 2.0 L (3.5-5.0) g/dL 10/01/20 10/01/20 Range/Units 06:21 11:19 Plt Count (150-450) k/uL Lymphocytes # (Manual) (1.0-4.8) k/uL Metamyelocytes # (Man) (0) k/uL D-Dimer (<0.60) mg/L FEU ABG pH (7.35-7.45) ABG pO2 (83-108) mmHg ABG HCO3 (21-25) mmol/L Chloride (98-107) mmol/L Carbon Dioxide (22-30) mmol/L BUN (7-17) mg/dL Glucose (74-99) mg/dL POC Glucose (mg/dL) 202 H 204 H (75-99) mg/dL Calcium (8.4-10.2) mg/dL AST (14-36) U/L ALT (4-34) U/L Lactate Dehydrogenase (313-618) U/L Creatine Kinase (30-135) U/L C-Reactive Protein (<10.0) mg/L Total Protein (6.3-8.2) g/dL Albumin (3.5-5.0) g/dL Microbiology - Last 24 Hours (Table) 09/28/20 17:18 Gram Stain - Final Sputum Sputum Culture - Final 09/28/20 16:43 Blood Culture - Preliminary Blood No Growth after 48 hours Assessment and Plan Assessment: Impression: Acute hypoxic respiratory failure secondary to covid 19 pneumonitis. Lymphopenia with thrombocytopenia secondary to above. Elevated inflammatory markers Type 2 diabetes. Benign essential hypertension. Paroxysmal atrial fibrillation. Hypovolemic hypotension,, remains on fluids and pressors, we will increase the amount of fluid given. Recommendation: Continue ventilatory support. Decrease FiO2 to 50%. Continue Covid 19 cocktail. Continue Decadron. Decrease the dose to 6 mg IV push every 12 hours. Patient was not a candidate for remdesivir and [id number]. Patient received 2 units of convalescent plasma. Continue nutritional support. Continue GI and DVT prophylaxis. Patient is critically ill, considering her ventilatory settings high PEEP and high FiO2, not ready for any form of weaning. Critical care time is 35 minutes. We'll continue to follow. Time with Patient: Greater than 30
[2020-10-01 15:22] LABS: Ferritin 258.5 ng/mL (10.0-291.0)
[2020-10-01 17:38] LABS: Glucose,Whole Blood 198 mg/dL (75-99)
--- NOTE | 2020-10-01 19:20 | P.PN ---
Subjective Progress Note Date: 10/01/20 Ann-Marie Molina, is a 80-year-old female patient of Dr. Esquivel, who presented to [facility] emergency room with a chief complaint of worsening shortness of breath generalized weakness and confusion, symptoms started about 6 days prior to admission but her condition declined significantly in the last 2 days. Patient was evaluated in emergency room vital examination on presentation revealed a temperature of 98.4 pulse 133 respiration 30 blood pressure 135/67 pulse ox 55% on room air her white blood count was 3.8 hemoglobin 15.9 platelet count 99 sodium 133 potassium 4.5 plasma lactic acid 11.4 BUN 17 creatinine 0.9 arterial blood gases revealed a pH of 7.19 pCO2 49 by mouth to 59 . Chest x-ray done in the emergency room revealed moderate pulmonary edema that could relate to congestive heart failure or ARDS , EKG revealed sinus tachycardia with right bundle branch block , coronavirus PCR was positive. patient was admitted to intensive care unit she was started on BiPAP. Patient developed atrial fibrillation with rapid ventricular response with a heart rate of 170 she was started on Cardizem drip, she had episodes of hypotension, she was started on levophed drip, and earlier this morning she required intubation and mechanical ventilation. Her past medical history is significant for history of hypertension, history of hyperlipidemia, history of insulin-dependent diabetes mellitus, and history of osteoporosis On 09/29/2020 patient was seen and examined in the ICU she is intubated sedated maintained on mechanical ventilation she is on assist control rate of 30 FiO2 60% and a PEEP of 15. PH is 7.18 pCO2 46 by mouth 08/26/2007 lactic acid is down to 4.6 blood pressure 100/52 she is still maintained on levophed infusion, she is maintained on IV Decadron she received 1 unit of convalescent plasma, white blood count 24.6 hemoglobin 14.1 platelet count 181 sodium 136 potassium 5.6 chloride 110 CO2 17 BUN 28 creatinine 1.2 glucose level 165 On 09/30/2020 patient was seen and examined in the ICU she is intubated sedated maintained on mechanical ventilation, today she was taken off of vasopressors and has been tolerating well blood pressure at this time 98/55, pH is 7.30 pCO2 37 by mouth to 72 white blood count is down to 6.6 hemoglobin 12.6 platelet cou nt 107 d-dimer is 1.77 BUN 34 creatinine 0.96 On 10/01/2020 patient was seen and examined in the ICU she remains intubated sedated maintained on mechanical ventilation FiO2 55% rate of 24 and PEEP of 15 temperature is 97.5 pulse 79 respiration 24 blood pressure 127/58 pulse ox 91% on FiO2 55% mechanical ventilation d-dimer 6.8 to pH 7.26 pCO2 42 by mouth to 76 white blood count is 5.8 hemoglobin 12.6 platelet count 102 BUN 37 creatinine 0.96 liver enzymes are elevated with AST at 71 a LT at 38 Objective - Vital Signs Vital signs: Vital Signs Temp 97.5 F L 10/01/20 16:00 Pulse 72 10/01/20 19:00 Resp 22 10/01/20 19:00 BP 127/58 10/01/20 16:00 Pulse Ox 92 L 10/01/20 19:00 Intake & Output 10/01/20 10/01/20 10/02/20 06:59 18:59 06:59 Intake Total 2354.405 3280.690 174 Output Total 810 705 40 Balance 3497.382 6986.690 134 Weight 86 kg Intake: IV 1752 1802.0 146 0.9 Sodium Chloride 120 120 10 Dexamethasone Sod 50 Phosphate 20 mg In Dextrose 5% in Water 50 ml @ 100 mls/hr IV DAILY [facility] Rx#:[id number] Levofloxacin 750Mg-D5w 150 Pmx 750 mg In Dextrose/ Water 1 150ml.bag @ 100 mls/hr IVPB Q48H [facility] Rx#: [id number] Piperacillin-Tazobactam 3 50.0 .375 gm In Sodium Chloride 0.9% 100 ml @ 25 mls/hr IVPB Q8H [facility] Rx#: [id number] Pressure Bag 72 72 6 Sodium Chloride 0.9% 1, 1560 1360 130 000 ml @ 130 mls/hr IV . Q7H42M [facility] Rx#:[id number] Intake, IV Titration 076.550 1097.690 Amount Norepinephrine 8 mg In 72.807 51.791 Sodium Chloride 0.9% 250 ml @ 0.05 MCG/KG/MIN 7. 392 mls/hr IV .Q24H [facility] Rx#:[id number] Piperacillin-Tazobactam 3 100 .375 gm In Sodium Chloride 0.9% 100 ml @ 25 mls/hr IVPB Q8H [facility] Rx#: [id number] Sodium Chloride 0.9% 1, 1000 000 ml @ 999 mls/hr IV . Q1H1M [facility] Rx#:[id number] propofoL 1,000 mg In 3.598 0.899 Empty Bag 1 bag @ Titrate IV .Q0M [facility] Rx#: [id number] Tube Feeding 336 336 28 Other 90 90 Output: Urine 810 705 40 Other: Voiding Method Indwelling Catheter Indwelling Catheter ABP, PAP, CO, CI - Last Documented Arterial Blood Pressure 112/45 - Exam Patient is intubated sedated maintained on mechanical ventilation HEENT head normocephalic and atraumatic Neck is supple no JVD no goiter no lymphadenopathy Chest exam reveals a few scattered rhonchi no wheezing Cardiac exam reveals regular heart sounds no gallops no murmurs Abdomen is soft nontender no organomegaly with normal bowel sounds Extremity exam reveals no edema no cyanosis or clubbing - Labs CBC & Chem 7: 10/01/20 04:05 10/01/20 04:05 Labs: Abnormal Lab Results - Last 24 Hours (Table) 10/01/20 10/01/20 10/01/20 Range/Units 00:04 04:05 04:05 Plt Count (150-450) k/uL Lymphocytes # (Manual) (1.0-4.8) k/uL Metamyelocytes # (Man) (0) k/uL D-Dimer 6.82 H (<0.60) mg/L FEU ABG pH (7.35-7.45) ABG pO2 (83-108) mmHg ABG HCO3 (21-25) mmol/L Chloride 118 H (98-107) mmol/L Carbon Dioxide 19 L (22-30) mmol/L BUN 37 H (7-17) mg/dL Glucose 211 H (74-99) mg/dL POC Glucose (mg/dL) 167 H (75-99) mg/dL Calcium 7.7 L (8.4-10.2) mg/dL AST 71 H (14-36) U/L ALT 38 H (4-34) U/L Lactate Dehydrogenase 1473 H (313-618) U/L Creatine Kinase 186 H (30-135) U/L C-Reactive Protein 47.3 H (<10.0) mg/L Total Protein 5.0 L (6.3-8.2) g/dL Albumin 2.0 L (3.5-5.0) g/dL 10/01/20 10/01/20 10/01/20 Range/Units 04:05 05:30 06:21 Plt Count 102 L (150-450) k/uL Lymphocytes # (Manual) 0.46 L (1.0-4.8) k/uL Metamyelocytes # (Man) 0.06 H (0) k/uL D-Dimer (<0.60) mg/L FEU ABG pH 7.26 L (7.35-7.45) ABG pO2 76 L (83-108) mmHg ABG HCO3 19 L (21-25) mmol/L Chloride (98-107) mmol/L Carbon Dioxide (22-30) mmol/L BUN (7-17) mg/dL Glucose (74-99) mg/dL POC Glucose (mg/dL) 202 H (75-99) mg/dL Calcium (8.4-10.2) mg/dL AST (14-36) U/L ALT (4-34) U/L Lactate Dehydrogenase (313-618) U/L Creatine Kinase (30-135) U/L C-Reactive Protein (<10.0) mg/L Total Protein (6.3-8.2) g/dL Albumin (3.5-5.0) g/dL 10/01/20 10/01/20 Range/Units 11:19 17:36 Plt Count (150-450) k/uL Lymphocytes # (Manual) (1.0-4.8) k/uL Metamyelocytes # (Man) (0) k/uL D-Dimer (<0.60) mg/L FEU ABG pH (7.35-7.45) ABG pO2 (83-108) mmHg ABG HCO3 (21-25) mmol/L Chloride (98-107) mmol/L Carbon Dioxide (22-30) mmol/L BUN (7-17) mg/dL Glucose (74-99) mg/dL POC Glucose (mg/dL) 204 H 198 H (75-99) mg/dL Calcium (8.4-10.2) mg/dL AST (14-36) U/L ALT (4-34) U/L Lactate Dehydrogenase (313-618) U/L Creatine Kinase (30-135) U/L C-Reactive Protein (<10.0) mg/L Total Protein (6.3-8.2) g/dL Albumin (3.5-5.0) g/dL Microbiology - Last 24 Hours (Table) 09/28/20 16:43 Blood Culture - Preliminary Blood No Growth after 72 hours 09/28/20 17:18 Gram Stain - Final Sputum Sputum Culture - Final Assessment and Plan Plan: 1. Acute hypoxic respiratory failure, requiring intubation and mechanical ventilation 2. Poitive Covid 19 testing 3. bilateral pulmonary infiltrates, likely related to pneumonia due to Covid 19 virus 4. Episode of atrial fibrillation with rapid ventricular response 5. Acute lactic acidosis improving 6. Episode of hypotension improved with IV fluid and levophed drip 7. Underlying history of hypertension 8. Underlying history of hyperlipidemia 9. Underlying history of diabetes mellitus Currently patient is intubated sedated maintained on mechanical ventilation She is maintained on IV Decadron and subcu Lovenox Will follow closely prognosis is guarded due to age and severity of illness
[2020-10-01] MEDS: DEXAMETHASONE SOD PHOSPHATE 10 MG/ML 1 ML VIAL IV SCH (21:16)
[2020-10-02 00:19] LABS: Glucose,Whole Blood 230 mg/dL (75-99)
[2020-10-02] MEDS: INSULIN ASPART (NovoLOG) 100 UNIT/ML VIAL SQ SCH ×4 (00:20→17:57)
[2020-10-02] MEDS: NOREPINEPHRINE 8 MG in SODIUM CHLORIDE 0.9% 250 ML IV SCH ×2 (00:24→19:06)
[2020-10-02] MEDS: PIPERACILLIN-TAZOBACTAM 3.375 GM in SODIUM CHLORIDE 0.9% 100 ML IVPB SCH ×3 (01:18→18:15)
[2020-10-02 04:24] LABS: HCT 41.7 % (34.0-46.0); HGB 12.8 gm/dL (11.4-16.0); Hypochromasia Moderate; MCH 30.4 pg (25.0-35.0); MCHC 30.6 g/dL (31.0-37.0); MCV 99.4 fL (80.0-100.0); Mean Platelet Volume 9.3; RBC 4.19 m/uL (3.80-5.40); RDW 14.8 % (11.5-15.5); WBC 6.9 k/uL (3.8-10.6)
[2020-10-02 04:39] LABS: ALT 39 U/L (4-34); AST 57 U/L (14-36); African American GFR (CKD) >90 (>60 ml/min/1.73 sqM); Alkaline Phosphatase 84 U/L (38-126); Anion Gap 1 mmol/L; Blood Urea Nitrogen 33 mg/dL (7-17); C Reactive Protein 29.7 mg/L (<10.0); Carbon Dioxide 20 mmol/L (22-30); Chloride 120 mmol/L (98-107); Creatine Kinase 94 U/L (30-135); Glucose 209 mg/dL (74-99); LDH 1476 U/L (313-618); Non-African American GFR(CKD) 79 (>60 ml/min/1.73 sqM); Potassium 4.7 mmol/L (3.5-5.1); Sodium 141 mmol/L (137-145); Total Bilirubin 1.1 mg/dL (0.2-1.3); Total Protein 5.2 g/dL (6.3-8.2)
[2020-10-02 04:59] LABS: ABG Base Excess -7.8 mmol/L; ABG HCO3 19 mmol/L (21-25); ABG Oxygen Saturation 93.8 % (94-97); ABG PCO2 42 mmHg (35-45); ABG PH 7.27 (7.35-7.45); ABG PO2 69 mmHg (83-108); ABG TCO2 20 mmol/L (19-24)
[2020-10-02 05:24] LABS: Band Neutrophils % 7 %; Large Platelets Present; Lymphocytes # (M) 0.62 k/uL (1.0-4.8); Metamyelocytes # (M) 0.14 k/uL (0); Metamyelocytes % 2 %; Monocytes # (M) 0.62 k/uL (0-1.0); Neutrophils % (M) 74 %; Nucleated Red Blood Cells 0 /100 WBC (0-0); Total Cells Counted 200
[2020-10-02 05:25] LABS: Platelet Count 71 k/uL (150-450)
[2020-10-02 05:48] LABS: Allen Test Performed? no
[2020-10-02 06:51] LABS: Glucose,Whole Blood 155 mg/dL (75-99)
[2020-10-02] MEDS: SODIUM CHLORIDE 0.9% 1,000 ML IV SCH ×2 (06:57→16:51)
--- NOTE | 2020-10-02 07:56 | XR ---
EXAMINATION TYPE: XR chest 1V portable DATE OF EXAM: 10/02/2020 CLINICAL HISTORY: Difficulty breathing progress study. TECHNIQUE: Single AP portable semiupright view of the chest is obtained. COMPARISON: Chest x-ray from one day earlier and older studies. FINDINGS: Stable endotracheal and orogastric tubes. Stable left internal jugular central venous cath eter. Persistent cardiomegaly with atherosclerotic thoracic aorta. Background reticular interstitial change s bilaterally with increased bilateral central and lower lung opacities. Tiny bilateral pleural effus ions likely present. Underlying scoliotic curvature or positioning. IMPRESSION: Bilateral multifocal predominantly mid to lower lung acute infiltrates and/or edema on ba ckground cardiomegaly and chronic parenchymal changes redemonstrated. No significant change from one day earlier.
[2020-10-02] MEDS: CHOLECALCIFEROL 25 MCG (1000 IU) TABLET PO SCH (08:28)
[2020-10-02] MEDS: CHLORHEXIDINE GLUCONATE 15 ML CUP MUCOUS MEM SCH ×2 (08:28→21:03)
[2020-10-02] MEDS: ASCORBIC ACID 500 MG TAB PO SCH (08:28)
[2020-10-02] MEDS: ZINC SULFATE 220 MG CAP PO SCH (08:28)
[2020-10-02] MEDS: DEXAMETHASONE SOD PHOSPHATE 10 MG/ML 1 ML VIAL IV SCH ×2 (08:29→21:03)
[2020-10-02] MEDS: PANTOPRAZOLE 40 MG/10 ML VIAL IVP SCH (08:29)
[2020-10-02] MEDS: ENOXAPARIN 40 MG/0.4 ML SYRINGE SQ SCH (08:29)
[2020-10-02] MEDS: SODIUM BICARBONATE TAB 650 MG TAB PO SCH ×3 (08:32→21:04)
[2020-10-02] MEDS: ALBUTEROL HFA INHALER INHALATION SCH ×4 (08:59→21:39)
[2020-10-02 12:06] LABS: Glucose,Whole Blood 172 mg/dL (75-99)
--- NOTE | 2020-10-02 13:44 | P.PN ---
Subjective Progress Note Date: 10/02/20 Principal diagnosis: Acute hypoxic respiratory failure secondary to Covid 19 pneumonitis. this 80-year-old female patient, known history of diabetes and hypertension, was brought into the emergency department upon the request of her family because of generalized weakness, falls and confusion x6 days. Her condition declined and the patient decompensated over the past 48-72 hours. This was rather a quick deterioration in her condition. She had been having also shortness of breath for the past 2 days.. In the emergency department, the initial vitals showed that the patient was profoundly hypoxic with a pulse ox of 50%. At that point, the patient also had blood work that showed severe lactic acidosis with a lactic acid level of 11. She wasgiven a chest x-ray that showed diffuse bilateral pulmonary infiltrates. The patient was given a bolus of 1 L of IV fluid and following that she was moved to the intensive care unit. The patient was kept on BiPAP throughout the night and currently she is on a BiPAP pressure of 14/7 cm of water with an FiO2 of 100%. Her FiO2 was 85%. She is responsive, however she is quite tachypneic and she is breathing in the mid 30s and she is struggling with her breathing and earlier this morning she started getting more restless and agitated. We had to start on Precedex which is currently running at 0.4 mcg/kg/h. She seems to be much more comfortable while on Precedex.had a bout of atrial fibrillation with rapid ventricular response in the ICU. The heart rate went up to 170 range. She was given 20 mg of Cardizem IV push. She converted back to normal sinus rhythm. She became hypotensive and her systolic blood pressure in the mid 60s. She was given additional 2 L of IV fluids and the patient is currently on normal saline running at 30 mL an hour. She will be also started on norepinephrine infusion. Lactic acid level is down to 6 based on the follow-up blood work.the blood gas showed a pH of 7.29 with a pCO2 of 37 and pO2 of 80. This was done a bipolar or 14/7 with an FiO2 of 100%. Chest x- ray showing diffuse breath and pulmonary infiltrates. D-dimer is at 1.09. The patient has a LDH of 1724, CRP level is 77, troponin is at 0.118, the proBNP level is 330, the patient has a lactic acid level of 11.4 at time of admission her lactic acid level is down to 6.7 and she has an anion gap metabolic acidosis with a serum bicarb of 14 and a gap of 19. UA is positive for glucose, +4, and COVID19 testing was positive. As such, her presentation is consistent with COVID 19 pneumonia. 09/29/2020, the patient remains intubated on a mechanical ventilator. The patient was intubated yesterday for an acute hypoxic respiratory failure and she was placed on mechanical ventilator she is currently off of a running at 40 mcg/kg per minute. The patient is on no paralytics. She is quite successful mechanical ventilator. She is an assist-control mode at the rate of 30 with a tidal volume of 375 and FiO2 of 60% with a PEEP of this. The chest x-ray from today is showing bilateral perihilar and lower lobe in addition to right upper lobe pulmonary rate. ET tube is in a good location. It is seen around 2 cm above the goyo. The patient also has a left internal jugular. Some today showed a pH of 7.18 with a pCO2 of 46 and pO2 of 108 and this wasn't an FiO2 of 60%. Meanwhile, the patient was quite hypotensive and acidotic and the patient had a very high lactic acid level of 11.4 which dropped down to 4.6 with fluid resuscitation. Overall, the patient received a total of 3 L of IV fluid in the form of normal saline and the patient is currently running at 130s's an hour of normal saline. Urine output is in order of 30-40 mL an hour and the net fluid balance is been +4.8 L over the past 24 hours. As such the patient is well resuscitated. Most recent blood pressure is 95/44 and the patient is currently on pressors at 19 mcg/ per minute of norepinephrine infusion. The procalcitonin level was at 0.53 and blood cultures and sputum cultures were sent and the patient was covered with empiric antibiotics and the patient was given cefepime and Levaquin. White cell count today's at 24. She was given Decadron. She was given convalescent plasma one unit.. The renal function is stable. E lectrolytes are stable. Potassium level is at 5.6 and this needs to be repeated. Serum bicarb is at 17 which is improving. Less lactic acid level from yesterday was at 4.6. The patient's blood sugar is at 160 and she is on sliding scale coverage for blood sugar control. Cardiac rhythm is sinus. No further bouts of atrial fibrillation. She did have one a 1 bouts yesterday prior to intubation and she converted back into normal sinus rhythm without any major difficulties. Patient was reevaluated today on 09/30/2020, remains in the ICU, intubated and mechanically ventilated. Patient is on volume control plus, tidal volume is 450, rate is 24, FiO2 is 60%, PEEP is at 15. ABG showed a pO2 of 72 pCO2 of 37 pH of 7.30. Patient is on propofol at 30 mcg/kg/m, off norepinephrine, IV fluid is at 13 0 mL per hour. Patient is on enteral feeding patient received 1 unit of convalescent plasma she was out of the window for remdesivir, she is on Decadron 20 mg daily, and she is also on Lovenox 40 mg subcu daily. Today, after reviewing her ABG and reviewed her chest x-ray, I felt there is no need to make any major changes in her ventilator settings. Hence no changes were made, and we will plan to continue present supportive care measures. Patient remains empirically on antibiotics. Her bicarb is improving not requiring any bicarb drip. She remains on sliding scale coverage for blood sugar. Presently in sinus rhythm, no further episodes of atrial fibrillation. Chest x-ray continues to show bilateral multifocal infiltrates with cardiomegaly. CBC is relatively normal. D-dimer is 1.77. Basic metabolic profile is normal. Renal profile is normal. LDH is 1814 and C-reactive protein is 76.3. Pro-calcitonin is elevated at 0.74. Levaquin and Zosyn and remain on board. Reevaluated today on 10/01/2020, patient remains in the ICU, intubated and mechanically ventilated. She is on assist control rate of 24 tidal volume is 450 FiO2 is 55% PEEP is 15. ABG showed a pO2 of 76 pCO2 of 42 pH of 7.26. Has patient was placed on oral bicarb. Patient is on propofol at 56 mcg/kg/m, norepinephrine at 0.03 mcg/kg/m, she is on tube feeding, patient will receive 1 L of fluid bolus in the formal 0.9 normal saline, and hopefully wean norepinephrine down and possibly discontinue. Chest x-ray continues to show bilateral infiltrates. And again her ABG is marginal on 60% FiO2 her pO2 was only 76. FiO2 was decreased down to 55%. No major change management expert the last 24 hours, patient is basically about the same. CBC is relatively normal. D-dimer 6.82. Basic metabolic profile is normal. Renal profile is normal. LDH is 1473 and C-reactive protein is 47.3. Patient remains on the Covid 19 cocktails. Remains on Decadron 20 mg IV push daily, remains on Zosyn and Levaquin. Sputum cultures are negative. Hence we will discontinue Levaquin and continue Zosyn Patient was reevaluated today on 10/02/2020, remains in the ICU, intubated and mechanically ventilated. Patient was initially intubated on 09/28/2020. Patient remains on high PEEP at 15, thyroglobulin is 450, patient is on volume control plus, inspiratory time is 0.8 seconds, FiO2 is 55% and PEEP is at 15. ABG showed a pO2 of 69 pCO2 42 pH of 7.27, hence cut down her FiO2 to 50%, and kept her on the same ventilator settings. Patient is on propofol at 55 mcg/kg/m, off norepinephrine and her IV fluids remains at 1 50 mL per hour. Chest x-ray continues to show bilateral infiltrates, basically the same, does not seem to be any better or any worse. Her d-dimer is significantly high today, over 35, hence we increased her Lovenox 50 mg subcu twice a day. Her peak airway pressure is 35, plateau pressure is 32. Urine output is about 40 mL per hour. Basic metabolic profile today is normal. Bicarb remains a bit low at 20. Renal profile is normal. CBC is relatively normal. Inflammatory markers remain elevated LDH is 1476 and C-reactive protein is 29.7. Objective - Vital Signs Vital signs: Vital Signs Temp 97.5 F L 10/02/20 12:00 Pulse 75 10/02/20 12:00 Resp 24 10/02/20 12:00 BP 103/46 10/02/20 12:00 Pulse Ox 91 L 10/02/20 12:00 Intake & Output 10/01/20 10/02/20 10/02/20 18:59 06:59 18:59 Intake Total 3280.690 2371.064 1134.520 Output Total 705 665 190 Balance 2575.690 1706.064 944.520 Weight 94.4 kg 94.4 kg Intake: IV 1802.0 1877 876 0.9 Sodium Chloride 120 120 60 Dexamethasone Sod 50 Phosphate 20 mg In Dextrose 5% in Water 50 ml @ 100 mls/hr IV DAILY [facility] Rx#:[id number] Levofloxacin 750Mg-D5w 150 Pmx 750 mg In Dextrose/ Water 1 150ml.bag @ 100 mls/hr IVPB Q48H [facility] Rx#: [id number] Piperacillin-Tazobactam 3 50.0 125 .375 gm In Sodium Chloride 0.9% 100 ml @ 25 mls/hr IVPB Q8H [facility] Rx#: [id number] Pressure Bag 72 72 36 Sodium Chloride 0.9% 1, 1360 1560 780 000 ml @ 130 mls/hr IV . Q7H42M [facility] Rx#:[id number] Intake, IV Titration 1052.690 266.064 58.520 Amount Norepinephrine 8 mg In 51.791 67.637 58.520 Sodium Chloride 0.9% 250 ml @ 0.05 MCG/KG/MIN 7. 392 mls/hr IV .Q24H [facility] Rx#:[id number] Sodium Chloride 0.9% 1, 1000 000 ml @ 999 mls/hr IV . Q1H1M [facility] Rx#:[id number] propofoL 1,000 mg In 0.899 198.427 Empty Bag 1 bag @ Titrate IV .Q0M [facility] Rx#: [id number] Tube Feeding 336 168 140 Other 90 60 60 Output: Urine 705 665 190 Other: Voiding Method Indwelling Catheter Indwelling Catheter Indwelling Catheter ABP, PAP, CO, CI - Last Documented Arterial Blood Pressure 127/47 - Exam Physical Exam: Revealed a 80-year-old female in no distress, ventilated, sedated, comfortable. Head: Atraumatic, normocephalic HEENT:[Neck is supple.] [No neck masses.] [No thyromegaly.] [No JVD.] endo tracheal tube and orogastric tubes are intact. Chest: [Clear throughout, minimal crackles at the bases no rhonchi and no wheezes. Cardiac Exam: [Normal S1 and S2, no S3 gallop, no murmur.] Abdomen: [Soft, nontender, no megaly, no rebound, no guarding, normal bowel sounds.] Extremities: [No clubbing, no edema, no cyanosis.] Neurological Exam: Could not assess, patient is sedated and maintained on propofol. She is calm and comfortable, pupils are equally reactive to light. Psychiatric: Could not be assessed. Skin: No rashes. - Labs CBC & Chem 7: 10/02/20 04:00 10/02/20 04:00 Labs: Abnormal Lab Results - Last 24 Hours (Table) 10/01/20 10/02/20 10/02/20 Range/Units 17:36 00:16 04:00 MCHC (31.0-37.0) g/dL Plt Count (150-450) k/uL Lymphocytes # (Manual) (1.0-4.8) k/uL Metamyelocytes # (Man) (0) k/uL D-Dimer >35.20 H (<0.60) mg/L FEU ABG pH (7.35-7.45) ABG pO2 (83-108) mmHg ABG HCO3 (21-25) mmol/L ABG O2 Saturation (94-97) % Chloride (98-107) mmol/L Carbon Dioxide (22-30) mmol/L BUN (7-17) mg/dL Glucose (74-99) mg/dL POC Glucose (mg/dL) 198 H 230 H (75-99) mg/dL Calcium (8.4-10.2) mg/dL AST (14-36) U/L ALT (4-34) U/L Lactate Dehydrogenase (313-618) U/L C-Reactive Protein (<10.0) mg/L Total Protein (6.3-8.2) g/dL Albumin (3.5-5.0) g/dL 10/02/20 10/02/20 10/02/20 Range/Units 04:00 04:00 04:58 MCHC 30.6 L (31.0-37.0) g/dL Plt Count 71 L (150-450) k/uL Lymphocytes # (Manual) 0.62 L (1.0-4.8) k/uL Metamyelocytes # (Man) 0.14 H (0) k/uL D-Dimer (<0.60) mg/L FEU ABG pH 7.27 L (7.35-7.45) ABG pO2 69 L (83-108) mmHg ABG HCO3 19 L (21-25) mmol/L ABG O2 Saturation 93.8 L (94-97) % Chloride 120 H (98-107) mmol/L Carbon Dioxide 20 L (22-30) mmol/L BUN 33 H (7-17) mg/dL Glucose 209 H (74-99) mg/dL POC Glucose (mg/dL) (75-99) mg/dL Calcium 8.0 L (8.4-10.2) mg/dL AST 57 H (14-36) U/L ALT 39 H (4-34) U/L Lactate Dehydrogenase 1476 H (313-618) U/L C-Reactive Protein 29.7 H (<10.0) mg/L Total Protein 5.2 L (6.3-8.2) g/dL Albumin 2.0 L (3.5-5.0) g/dL 10/02/20 10/02/20 Range/Units 06:49 12:04 MCHC (31.0-37.0) g/dL Plt Count (150-450) k/uL Lymphocytes # (Manual) (1.0-4.8) k/uL Metamyelocytes # (Man) (0) k/uL D-Dimer (<0.60) mg/L FEU ABG pH (7.35-7.45) ABG pO2 (83-108) mmHg ABG HCO3 (21-25) mmol/L ABG O2 Saturation (94-97) % Chloride (98-107) mmol/L Carbon Dioxide (22-30) mmol/L BUN (7-17) mg/dL Glucose (74-99) mg/dL POC Glucose (mg/dL) 155 H 172 H (75-99) mg/dL Calcium (8.4-10.2) mg/dL AST (14-36) U/L ALT (4-34) U/L Lactate Dehydrogenase (313-618) U/L C-Reactive Protein (<10.0) mg/L Total Protein (6.3-8.2) g/dL Albumin (3.5-5.0) g/dL Microbiology - Last 24 Hours (Table) 09/28/20 16:43 Blood Culture - Preliminary Blood No Growth after 72 hours 09/28/20 17:18 Gram Stain - Final Sputum Sputum Culture - Final Assessment and Plan Assessment: Impression: Acute hypoxic respiratory failure secondary to covid 19 pneumonitis. Suspect some component of ARDS with worsening lung mechanics, and worsening peak airway pressure and plateau pressures. Lymphopenia with thrombocytopenia secondary to above. Elevated inflammatory markers secondary to Covid 19 pneumonitis. Type 2 diabetes. Benign essential hypertension. Paroxysmal atrial fibrillation. Hypovolemic hypotension,, remains on fluids off pressors today Elevated d-dimer secondary to above. Recommendation: Continue ventilatory support. Minimal changes in the ventilator settings including cutting down FiO2 to 50%. Increase Lovenox to 50 mg subcu twice a day. Continue Covid 19 cocktail. Continue Decadron. 6 mg IV push every 12 hours. Patient was not a candidate for remdesivir and [id number]. Patient received 2 units of convalescent plasma. Continue nutritional support. Remains on enteral feeding. Continue GI and DVT prophylaxis. Remains critically ill, and prognosis is guarded. Critical care time is 35 minutes. We'll continue to follow. Time with Patient: Greater than 30
--- NOTE | 2020-10-02 14:39 | P.PN ---
Subjective Progress Note Date: 10/02/20 Ann-Marie Molina, is a 80-year-old female patient of Dr. Esquivel, who presented to [facility] emergency room with a chief complaint of worsening shortness of breath generalized weakness and confusion, symptoms started about 6 days prior to admission but her condition declined significantly in the last 2 days. Patient was evaluated in emergency room vital examination on presentation revealed a temperature of 98.4 pulse 133 respiration 30 blood pressure 135/67 pulse ox 55% on room air her white blood count was 3.8 hemoglobin 15.9 platelet count 99 sodium 133 potassium 4.5 plasma lactic acid 11.4 BUN 17 creatinine 0.9 arterial blood gases revealed a pH of 7.19 pCO2 49 by mouth to 59 . Chest x-ray done in the emergency room revealed moderate pulmonary edema that could relate to congestive heart failure or ARDS , EKG revealed sinus tachycardia with right bundle branch block , coronavirus PCR was positive. patient was admitted to intensive care unit she was started on BiPAP. Patient developed atrial fibrillation with rapid ventricular response with a heart rate of 170 she was started on Cardizem drip, she had episodes of hypotension, she was started on levophed drip, and earlier this morning she required intubation and mechanical ventilation. Her past medical history is significant for history of hypertension, history of hyperlipidemia, history of insulin-dependent diabetes mellitus, and history of osteoporosis On 09/29/2020 patient was seen and examined in the ICU she is intubated sedated maintained on mechanical ventilation she is on assist control rate of 30 FiO2 60% and a PEEP of 15. PH is 7.18 pCO2 46 by mouth 08/26/2007 lactic acid is down to 4.6 blood pressure 100/52 she is still maintained on levophed infusion, she is maintained on IV Decadron she received 1 unit of convalescent plasma, white blood count 24.6 hemoglobin 14.1 platelet count 181 sodium 136 potassium 5.6 chloride 110 CO2 17 BUN 28 creatinine 1.2 glucose level 165 On 09/30/2020 patient was seen and examined in the ICU she is intubated sedated maintained on mechanical ventilation, today she was taken off of vasopressors and has been tolerating well blood pressure at this time 98/55, pH is 7.30 pCO2 37 by mouth to 72 white blood count is down to 6.6 hemoglobin 12.6 platelet cou nt 107 d-dimer is 1.77 BUN 34 creatinine 0.96 On 10/01/2020 patient was seen and examined in the ICU she remains intubated sedated maintained on mechanical ventilation FiO2 55% rate of 24 and PEEP of 15 temperature is 97.5 pulse 79 respiration 24 blood pressure 127/58 pulse ox 91% on FiO2 55% mechanical ventilation d-dimer 6.8 to pH 7.26 pCO2 42 by mouth to 76 white blood count is 5.8 hemoglobin 12.6 platelet count 102 BUN 37 creatinine 0.96 liver enzymes are elevated with AST at 71 a LT at 38 On 10/02/2020 patient was seen and examined in the ICU she is intubated sedated maintained on mechanical ventilation FiO2 55% rate of 24 and PEEP of 15 her vital examination reveals a temperature of 97.5 pulse 75 respiration 24 blood pressure 103/46 pulse ox 91% arterial blood gas reveals a pH of 7.27 pCO2 42 pO2 69 White blood count is 6.9 hemoglobin 12.8 platelet count 71 sodium 141 potassium 4.7 chloride 120 CO2 20 BUN 33 creatinine 0.73 patient is not on any IV pressors at this time. Objective - Vital Signs Vital signs: Vital Signs Temp 97.5 F L 10/02/20 12:00 Pulse 70 10/02/20 14:00 Resp 24 10/02/20 14:00 BP 103/46 10/02/20 12:00 Pulse Ox 90 L 10/02/20 14:00 Intake & Output 10/01/20 10/02/20 10/02/20 18:59 06:59 18:59 Intake Total 3280.690 2371.064 1482.520 Output Total 705 665 260 Balance 2575.690 0370.014 6018.520 Weight 94.4 kg 94.4 kg Intake: IV 1802.0 1877 1168 0.9 Sodium Chloride 120 120 80 Dexamethasone Sod 50 Phosphate 20 mg In Dextrose 5% in Water 50 ml @ 100 mls/hr IV DAILY [facility] Rx#:[id number] Levofloxacin 750Mg-D5w 150 Pmx 750 mg In Dextrose/ Water 1 150ml.bag @ 100 mls/hr IVPB Q48H [facility] Rx#: [id number] Piperacillin-Tazobactam 3 50.0 125 .375 gm In Sodium Chloride 0.9% 100 ml @ 25 mls/hr IVPB Q8H [facility] Rx#: [id number] Pressure Bag 72 72 48 Sodium Chloride 0.9% 1, 1360 1560 1040 000 ml @ 130 mls/hr IV . Q7H42M [facility] Rx#:[id number] Intake, IV Titration 1052.690 266.064 58.520 Amount Norepinephrine 8 mg In 51.791 67.637 58.520 Sodium Chloride 0.9% 250 ml @ 0.05 MCG/KG/MIN 7. 392 mls/hr IV .Q24H [facility] Rx#:[id number] Sodium Chloride 0.9% 1, 1000 000 ml @ 999 mls/hr IV . Q1H1M [facility] Rx#:[id number] propofoL 1,000 mg In 0.899 198.427 Empty Bag 1 bag @ Titrate IV .Q0M [facility] Rx#: [id number] Tube Feeding 336 168 196 Other 90 60 60 Output: Urine 705 665 260 Other: Voiding Method Indwelling Catheter Indwelling Catheter Indwelling Catheter ABP, PAP, CO, CI - Last Documented Arterial Blood Pressure 129/46 - Exam Patient is intubated sedated maintained on mechanical ventilation HEENT head normocephalic and atraumatic Neck is supple no JVD no goiter no lymphadenopathy Chest exam reveals a few scattered rhonchi no wheezing Cardiac exam reveals regular heart sounds no gallops no murmurs Abdomen is soft nontender no organomegaly with normal bowel sounds Extremity exam reveals no edema no cyanosis or clubbing - Labs CBC & Chem 7: 10/02/20 04:00 10/02/20 04:00 Labs: Abnormal Lab Results - Last 24 Hours (Table) 10/01/20 10/02/20 10/02/20 Range/Units 17:36 00:16 04:00 MCHC (31.0-37.0) g/dL Plt Count (150-450) k/uL Lymphocytes # (Manual) (1.0-4.8) k/uL Metamyelocytes # (Man) (0) k/uL D-Dimer >35.20 H (<0.60) mg/L FEU ABG pH (7.35-7.45) ABG pO2 (83-108) mmHg ABG HCO3 (21-25) mmol/L ABG O2 Saturation (94-97) % Chloride (98-107) mmol/L Carbon Dioxide (22-30) mmol/L BUN (7-17) mg/dL Glucose (74-99) mg/dL POC Glucose (mg/dL) 198 H 230 H (75-99) mg/dL Calcium (8.4-10.2) mg/dL AST (14-36) U/L ALT (4-34) U/L Lactate Dehydrogenase (313-618) U/L C-Reactive Protein (<10.0) mg/L Total Protein (6.3-8.2) g/dL Albumin (3.5-5.0) g/dL 10/02/20 10/02/20 10/02/20 Range/Units 04:00 04:00 04:58 MCHC 30.6 L (31.0-37.0) g/dL Plt Count 71 L (150-450) k/uL Lymphocytes # (Manual) 0.62 L (1.0-4.8) k/uL Metamyelocytes # (Man) 0.14 H (0) k/uL D-Dimer (<0.60) mg/L FEU ABG pH 7.27 L (7.35-7.45) ABG pO2 69 L (83-108) mmHg ABG HCO3 19 L (21-25) mmol/L ABG O2 Saturation 93.8 L (94-97) % Chloride 120 H (98-107) mmol/L Carbon Dioxide 20 L (22-30) mmol/L BUN 33 H (7-17) mg/dL Glucose 209 H (74-99) mg/dL POC Glucose (mg/dL) (75-99) mg/dL Calcium 8.0 L (8.4-10.2) mg/dL AST 57 H (14-36) U/L ALT 39 H (4-34) U/L Lactate Dehydrogenase 1476 H (313-618) U/L C-Reactive Protein 29.7 H (<10.0) mg/L Total Protein 5.2 L (6.3-8.2) g/dL Albumin 2.0 L (3.5-5.0) g/dL 10/02/20 10/02/20 Range/Units 06:49 12:04 MCHC (31.0-37.0) g/dL Plt Count (150-450) k/uL Lymphocytes # (Manual) (1.0-4.8) k/uL Metamyelocytes # (Man) (0) k/uL D-Dimer (<0.60) mg/L FEU ABG pH (7.35-7.45) ABG pO2 (83-108) mmHg ABG HCO3 (21-25) mmol/L ABG O2 Saturation (94-97) % Chloride (98-107) mmol/L Carbon Dioxide (22-30) mmol/L BUN (7-17) mg/dL Glucose (74-99) mg/dL POC Glucose (mg/dL) 155 H 172 H (75-99) mg/dL Calcium (8.4-10.2) mg/dL AST (14-36) U/L ALT (4-34) U/L Lactate Dehydrogenase (313-618) U/L C-Reactive Protein (<10.0) mg/L Total Protein (6.3-8.2) g/dL Albumin (3.5-5.0) g/dL Microbiology - Last 24 Hours (Table) 09/28/20 16:43 Blood Culture - Preliminary Blood No Growth after 72 hours Assessment and Plan Plan: 1. Acute hypoxic respiratory failure, requiring intubation and mechanical ventilation 2. Poitive Covid 19 testing 3. bilateral pulmonary infiltrates, likely related to pneumonia due to Covid 19 virus 4. Episode of atrial fibrillation with rapid ventricular response 5. Acute lactic acidosis improving 6. Episode of hypotension improved with IV fluid and levophed drip 7. Underlying history of hypertension 8. Underlying history of hyperlipidemia 9. Underlying history of diabetes mellitus Currently patient is intubated sedated maintained on mechanical ventilation She is maintained on IV Decadron and subcu Lovenox Will follow closely prognosis is guarded due to age and severity of illness
[2020-10-02 17:54] LABS: Glucose,Whole Blood 178 mg/dL (75-99)
[2020-10-02] MEDS: ENOXAPARIN 60 MG/0.6 ML SYRINGE SQ SCH (21:05)
[2020-10-03 00:06] LABS: Glucose,Whole Blood 201 mg/dL (75-99)
[2020-10-03] MEDS: INSULIN ASPART (NovoLOG) 100 UNIT/ML VIAL SQ SCH ×9 (00:16→23:58)
[2020-10-03] MEDS: SODIUM CHLORIDE 0.9% 1,000 ML IV SCH ×3 (01:41→15:20)
[2020-10-03] MEDS: PIPERACILLIN-TAZOBACTAM 3.375 GM in SODIUM CHLORIDE 0.9% 100 ML IVPB SCH ×3 (01:42→17:14)
[2020-10-03 04:57] LABS: ALT 41 U/L (4-34); AST 54 U/L (14-36); African American GFR (CKD) >90 (>60 ml/min/1.73 sqM); Alkaline Phosphatase 94 U/L (38-126); Anion Gap 4 mmol/L; Blood Urea Nitrogen 36 mg/dL (7-17); C Reactive Protein 15.1 mg/L (<10.0); Carbon Dioxide 20 mmol/L (22-30); Chloride 120 mmol/L (98-107); Creatine Kinase 39 U/L (30-135); Glucose 242 mg/dL (74-99); LDH 1481 U/L (313-618); Non-African American GFR(CKD) 81 (>60 ml/min/1.73 sqM); Potassium 4.8 mmol/L (3.5-5.1); Sodium 144 mmol/L (137-145); Total Bilirubin 1.3 mg/dL (0.2-1.3)
[2020-10-03 05:10] LABS: HCT 37.5 % (34.0-46.0); HGB 12.4 gm/dL (11.4-16.0); Hypochromasia Slight; MCH 31.9 pg (25.0-35.0); MCHC 33.1 g/dL (31.0-37.0); MCV 96.2 fL (80.0-100.0); Mean Platelet Volume 11.7; RDW 14.3 % (11.5-15.5); WBC 7.2 k/uL (3.8-10.6)
[2020-10-03 05:13] LABS: Platelet Count 41 k/uL (150-450)
[2020-10-03 05:25] LABS: Band Neutrophils % 3 %; Large Platelets Present; Lymphocytes # (M) 0.43 k/uL (1.0-4.8); Monocytes # (M) 0.79 k/uL (0-1.0); Neutrophils % (M) 80 %; Nucleated Red Blood Cells 0 /100 WBC (0-0); Total Cells Counted 100
[2020-10-03 05:34] LABS: ABG Base Excess -6.3 mmol/L; ABG HCO3 21 mmol/L (21-25); ABG Oxygen Saturation 90.1 % (94-97); ABG PCO2 44 mmHg (35-45); ABG PH 7.28 (7.35-7.45); ABG PO2 60 mmHg (83-108); ABG TCO2 22 mmol/L (19-24); Allen Test Performed? Yes
[2020-10-03 05:45] LABS: Glucose,Whole Blood 205 mg/dL (75-99)
[2020-10-03] MEDS: ALBUTEROL HFA INHALER INHALATION SCH ×4 (08:16→20:09)
--- NOTE | 2020-10-03 09:01 | XR ---
EXAMINATION TYPE: XR chest 1V portable DATE OF EXAM: 10/03/2020 Comparison: 10/02/2020 Clinical History: 80-year-old female Tube placement Findings: ET tube is satisfactory. Left CVC tip in the upper right atrium. NG tube courses below the diaphragm. Heart upper limits of normal in size. Diffuse interstitial and patchy mid and lower lung opacities u nchanged. Air bronchograms in the retrocardiac region again noted. Impression: Continued interstitial opacities and mid and lower lung airspace disease, possible pulmonary edema. C linically correlate.
[2020-10-03] MEDS: DEXAMETHASONE SOD PHOSPHATE 10 MG/ML 1 ML VIAL IV SCH ×2 (09:06→21:02)
[2020-10-03] MEDS: PANTOPRAZOLE 40 MG/10 ML VIAL IVP SCH (09:06)
[2020-10-03] MEDS: CHLORHEXIDINE GLUCONATE 15 ML CUP MUCOUS MEM SCH ×2 (09:06→21:02)
[2020-10-03] MEDS: SODIUM BICARBONATE TAB 650 MG TAB PO SCH ×3 (09:07→21:02)
[2020-10-03] MEDS: ASCORBIC ACID 500 MG TAB PO SCH (09:08)
[2020-10-03] MEDS: ZINC SULFATE 220 MG CAP PO SCH (09:08)
[2020-10-03] MEDS: ENOXAPARIN 60 MG/0.6 ML SYRINGE SQ SCH ×2 (09:08→21:02)
[2020-10-03] MEDS: CHOLECALCIFEROL 25 MCG (1000 IU) TABLET PO SCH (09:08)
[2020-10-03 11:34] LABS: Ferritin 272.9 ng/mL (10.0-291.0)
[2020-10-03 11:57] LABS: Glucose,Whole Blood 214 mg/dL (75-99)
--- NOTE | 2020-10-03 13:14 | P.PN ---
Subjective Progress Note Date: 10/03/20 Principal diagnosis: Acute hypoxic respiratory failure secondary to Covid 19 pneumonitis. this 80-year-old female patient, known history of diabetes and hypertension, was brought into the emergency department upon the request of her family because of generalized weakness, falls and confusion x6 days. Her condition declined and the patient decompensated over the past 48-72 hours. This was rather a quick deterioration in her condition. She had been having also shortness of breath for the past 2 days.. In the emergency department, the initial vitals showed that the patient was profoundly hypoxic with a pulse ox of 50%. At that point, the patient also had blood work that showed severe lactic acidosis with a lactic acid level of 11. She wasgiven a chest x-ray that showed diffuse bilateral pulmonary infiltrates. The patient was given a bolus of 1 L of IV fluid and following that she was moved to the intensive care unit. The patient was kept on BiPAP throughout the night and currently she is on a BiPAP pressure of 14/7 cm of water with an FiO2 of 100%. Her FiO2 was 85%. She is responsive, however she is quite tachypneic and she is breathing in the mid 30s and she is struggling with her breathing and earlier this morning she started getting more restless and agitated. We had to start on Precedex which is currently running at 0.4 mcg/kg/h. She seems to be much more comfortable while on Precedex.had a bout of atrial fibrillation with rapid ventricular response in the ICU. The heart rate went up to 170 range. She was given 20 mg of Cardizem IV push. She converted back to normal sinus rhythm. She became hypotensive and her systolic blood pressure in the mid 60s. She was given additional 2 L of IV fluids and the patient is currently on normal saline running at 30 mL an hour. She will be also started on norepinephrine infusion. Lactic acid level is down to 6 based on the follow-up blood work.the blood gas showed a pH of 7.29 with a pCO2 of 37 and pO2 of 80. This was done a bipolar or 14/7 with an FiO2 of 100%. Chest x- ray showing diffuse breath and pulmonary infiltrates. D-dimer is at 1.09. The patient has a LDH of 1724, CRP level is 77, troponin is at 0.118, the proBNP level is 330, the patient has a lactic acid level of 11.4 at time of admission her lactic acid level is down to 6.7 and she has an anion gap metabolic acidosis with a serum bicarb of 14 and a gap of 19. UA is positive for glucose, +4, and COVID19 testing was positive. As such, her presentation is consistent with COVID 19 pneumonia. 09/29/2020, the patient remains intubated on a mechanical ventilator. The patient was intubated yesterday for an acute hypoxic respiratory failure and she was placed on mechanical ventilator she is currently off of a running at 40 mcg/kg per minute. The patient is on no paralytics. She is quite successful mechanical ventilator. She is an assist-control mode at the rate of 30 with a tidal volume of 375 and FiO2 of 60% with a PEEP of this. The chest x-ray from today is showing bilateral perihilar and lower lobe in addition to right upper lobe pulmonary rate. ET tube is in a good location. It is seen around 2 cm above the goyo. The patient also has a left internal jugular. Some today showed a pH of 7.18 with a pCO2 of 46 and pO2 of 108 and this wasn't an FiO2 of 60%. Meanwhile, the patient was quite hypotensive and acidotic and the patient had a very high lactic acid level of 11.4 which dropped down to 4.6 with fluid resuscitation. Overall, the patient received a total of 3 L of IV fluid in the form of normal saline and the patient is currently running at 130s's an hour of normal saline. Urine output is in order of 30-40 mL an hour and the net fluid balance is been +4.8 L over the past 24 hours. As such the patient is well resuscitated. Most recent blood pressure is 95/44 and the patient is currently on pressors at 19 mcg/ per minute of norepinephrine infusion. The procalcitonin level was at 0.53 and blood cultures and sputum cultures were sent and the patient was covered with empiric antibiotics and the patient was given cefepime and Levaquin. White cell count today's at 24. She was given Decadron. She was given convalescent plasma one unit.. The renal function is stable. E lectrolytes are stable. Potassium level is at 5.6 and this needs to be repeated. Serum bicarb is at 17 which is improving. Less lactic acid level from yesterday was at 4.6. The patient's blood sugar is at 160 and she is on sliding scale coverage for blood sugar control. Cardiac rhythm is sinus. No further bouts of atrial fibrillation. She did have one a 1 bouts yesterday prior to intubation and she converted back into normal sinus rhythm without any major difficulties. Patient was reevaluated today on 09/30/2020, remains in the ICU, intubated and mechanically ventilated. Patient is on volume control plus, tidal volume is 450, rate is 24, FiO2 is 60%, PEEP is at 15. ABG showed a pO2 of 72 pCO2 of 37 pH of 7.30. Patient is on propofol at 30 mcg/kg/m, off norepinephrine, IV fluid is at 13 0 mL per hour. Patient is on enteral feeding patient received 1 unit of convalescent plasma she was out of the window for remdesivir, she is on Decadron 20 mg daily, and she is also on Lovenox 40 mg subcu daily. Today, after reviewing her ABG and reviewed her chest x-ray, I felt there is no need to make any major changes in her ventilator settings. Hence no changes were made, and we will plan to continue present supportive care measures. Patient remains empirically on antibiotics. Her bicarb is improving not requiring any bicarb drip. She remains on sliding scale coverage for blood sugar. Presently in sinus rhythm, no further episodes of atrial fibrillation. Chest x-ray continues to show bilateral multifocal infiltrates with cardiomegaly. CBC is relatively normal. D-dimer is 1.77. Basic metabolic profile is normal. Renal profile is normal. LDH is 1814 and C-reactive protein is 76.3. Pro-calcitonin is elevated at 0.74. Levaquin and Zosyn and remain on board. Reevaluated today on 10/01/2020, patient remains in the ICU, intubated and mechanically ventilated. She is on assist control rate of 24 tidal volume is 450 FiO2 is 55% PEEP is 15. ABG showed a pO2 of 76 pCO2 of 42 pH of 7.26. Has patient was placed on oral bicarb. Patient is on propofol at 56 mcg/kg/m, norepinephrine at 0.03 mcg/kg/m, she is on tube feeding, patient will receive 1 L of fluid bolus in the formal 0.9 normal saline, and hopefully wean norepinephrine down and possibly discontinue. Chest x-ray continues to show bilateral infiltrates. And again her ABG is marginal on 60% FiO2 her pO2 was only 76. FiO2 was decreased down to 55%. No major change attendant the last 24 hours, patient is basically about the same. CBC is relatively normal. D-dimer 6.82. Basic metabolic profile is normal. Renal profile is normal. LDH is 1473 and C-reactive protein is 47.3. Patient remains on the Covid 19 cocktails. Remains on Decadron 20 mg IV push daily, remains on Zosyn and Levaquin. Sputum cultures are negative. Hence we will discontinue Levaquin and continue Zosyn Patient was reevaluated today on 10/02/2020, remains in the ICU, intubated and mechanically ventilated. Patient was initially intubated on 09/28/2020. Patient remains on high PEEP at 15, thyroglobulin is 450, patient is on volume control plus, inspiratory time is 0.8 seconds, FiO2 is 55% and PEEP is at 15. ABG showed a pO2 of 69 pCO2 42 pH of 7.27, hence cut down her FiO2 to 50%, and kept her on the same ventilator settings. Patient is on propofol at 55 mcg/kg/m, off norepinephrine and her IV fluids remains at 1 50 mL per hour. Chest x-ray continues to show bilateral infiltrates, basically the same, does not seem to be any better or any worse. Her d-dimer is significantly high today, over 35, hence we increased her Lovenox 50 mg subcu twice a day. Her peak airway pressure is 35, plateau pressure is 32. Urine output is about 40 mL per hour. Basic metabolic profile today is normal. Bicarb remains a bit low at 20. Renal profile is normal. CBC is relatively normal. Inflammatory markers remain elevated LDH is 1476 and C-reactive protein is 29.7. Patient was reevaluated today on 10/03/2020, remains in ICU, intubated and mechanically ventilated. Her ventilator settings are volume control plus at 450, FiO2 is 65% PEEP is 15 and the rate is 24. ABG remains marginal with a pO2 of 60 pCO2 of 44 pH of 7.28. Remains on propofol not requiring any other sedation at this point. Remains on enteral feeding via orogastric tube, she is up to goal. Chest x-ray is basically about the same continues to show bilateral interstitial infiltrates. It is not any better and not any worse. Patient is hemodynamically stable, not requiring any pressors. Her d-dimer is 34 hence the Lovenox dose was increased. Her C-reactive protein is 15.1 [place] [address] labs today were reviewed, chest x-ray was reviewed and I updated her daughter on her condition. The family seems to be inclined to consider comfort care measures in the meantime the CODE STATUS was changed to DO NOT RESUSCITATE CODE STATUS. Daughter was made aware that her condition has not shown any improvement since the day she was intubated on 09/28/2020. I believe her overall clinical status is unchanged. Objective - Vital Signs Vital signs: Vital Signs Temp 97.6 F 10/03/20 08:00 Pulse 90 10/03/20 12:00 Resp 24 10/03/20 12:00 BP 119/51 10/03/20 07:00 Pulse Ox 92 L 10/03/20 12:00 Intake & Output 10/02/20 10/03/20 10/03/20 18:59 06:59 18:59 Intake Total 2040.520 2093.261 934.037 Output Total 400 720 210 Balance 2714.749 7818.261 724.037 Weight 94.4 kg 96.3 kg Intake: IV 1232 212 680 0.9 Sodium Chloride 120 10 Pressure Bag 72 72 30 Sodium Chloride 0.9% 1, 1040 130 650 000 ml @ 130 mls/hr IV . Q7H42M [facility] Rx#:[id number] Intake, IV Titration 700.737 3167.261 112.037 Amount Norepinephrine 8 mg In 58.520 Sodium Chloride 0.9% 250 ml @ 0.05 MCG/KG/MIN 7. 392 mls/hr IV .Q24H [facility] Rx#:[id number] Sodium Chloride 0.9% 1, 1300 000 ml @ 130 mls/hr IV . Q7H42M [facility] Rx#:[id number] propofoL 1,000 mg In 100 183.261 112.037 Empty Bag 1 bag @ Titrate IV .Q0M [facility] Rx#: [id number] Tube Feeding 308 308 112 Blood Product 252 Ffp Pher Conval High [address] Unit [id number] Other 90 90 30 Output: Urine 400 720 210 Other: Voiding Method Indwelling Catheter Indwelling Catheter Indwelling Catheter ABP, PAP, CO, CI - Last Documented Arterial Blood Pressure 164/53 - Exam Physical Exam: Revealed a 80-year-old female in no distress, ventilated, sedated, comfortable. Head: Atraumatic, normocephalic HEENT:[Neck is supple.] [No neck masses.] [No thyromegaly.] [No JVD.] endo tracheal tube and orogastric tubes are intact. Chest: [Clear throughout, minimal crackles at the bases no rhonchi and no wheezes. Cardiac Exam: [Normal S1 and S2, no S3 gallop, no murmur.] Abdomen: [Soft, nontender, no megaly, no rebound, no guarding, normal bowel sounds.] Extremities: [No clubbing, no edema, no cyanosis.] Neurological Exam: Could not assess, patient is sedated and maintained on propofol. She is calm and comfortable, pupils are equally reactive to light. With holding sedation will be done today for assessment of mental status. Psychiatric: Could not be assessed. Skin: No rashes. - Labs CBC & Chem 7: 10/03/20 04:20 10/03/20 04:20 Labs: Abnormal Lab Results - Last 24 Hours (Table) 10/02/20 10/03/20 10/03/20 Range/Units 17:52 00:05 04:20 Plt Count 41 L (150-450) k/uL Lymphocytes # (Manual) 0.43 L (1.0-4.8) k/uL D-Dimer (<0.60) mg/L FEU ABG pH (7.35-7.45) ABG pO2 (83-108) mmHg ABG O2 Saturation (94-97) % Chloride (98-107) mmol/L Carbon Dioxide (22-30) mmol/L BUN (7-17) mg/dL Glucose (74-99) mg/dL POC Glucose (mg/dL) 178 H 201 H (75-99) mg/dL Calcium (8.4-10.2) mg/dL AST (14-36) U/L ALT (4-34) U/L Lactate Dehydrogenase (313-618) U/L C-Reactive Protein (<10.0) mg/L Total Protein (6.3-8.2) g/dL Albumin (3.5-5.0) g/dL 10/03/20 10/03/20 10/03/20 Range/Units 04:20 04:20 05:30 Plt Count (150-450) k/uL Lymphocytes # (Manual) (1.0-4.8) k/uL D-Dimer >34.11 H (<0.60) mg/L FEU ABG pH 7.28 L (7.35-7.45) ABG pO2 60 L (83-108) mmHg ABG O2 Saturation 90.1 L (94-97) % Chloride 120 H (98-107) mmol/L Carbon Dioxide 20 L (22-30) mmol/L BUN 36 H (7-17) mg/dL Glucose 242 H (74-99) mg/dL POC Glucose (mg/dL) (75-99) mg/dL Calcium 8.0 L (8.4-10.2) mg/dL AST 54 H (14-36) U/L ALT 41 H (4-34) U/L Lactate Dehydrogenase 1481 H (313-618) U/L C-Reactive Protein 15.1 H (<10.0) mg/L Total Protein 5.0 L (6.3-8.2) g/dL Albumin 2.0 L (3.5-5.0) g/dL 10/03/20 10/03/20 Range/Units 05:33 11:56 Plt Count (150-450) k/uL Lymphocytes # (Manual) (1.0-4.8) k/uL D-Dimer (<0.60) mg/L FEU ABG pH (7.35-7.45) ABG pO2 (83-108) mmHg ABG O2 Saturation (94-97) % Chloride (98-107) mmol/L Carbon Dioxide (22-30) mmol/L BUN (7-17) mg/dL Glucose (74-99) mg/dL POC Glucose (mg/dL) 205 H 214 H (75-99) mg/dL Calcium (8.4-10.2) mg/dL AST (14-36) U/L ALT (4-34) U/L Lactate Dehydrogenase (313-618) U/L C-Reactive Protein (<10.0) mg/L Total Protein (6.3-8.2) g/dL Albumin (3.5-5.0) g/dL Microbiology - Last 24 Hours (Table) 09/28/20 16:43 Blood Culture - Preliminary Blood No Growth after 96 hours Assessment and Plan Assessment: Impression: Acute hypoxic respiratory failure secondary to covid 19 pneumonitis. Also s uspect ARDS. Lymphopenia with thrombocytopenia secondary to above. Elevated inflammatory markers secondary to Covid 19 pneumonitis. Type 2 diabetes. Benign essential hypertension. Paroxysmal atrial fibrillation. Hypovolemic hypotension,, remains on fluids off pressors today Elevated d-dimer secondary to above. Recommendation: Continue ventilatory support. No changes were made on the ventilator today. Continue Lovenox to 50 mg subcu twice a day. Continue Covid 19 cocktail. Continue Decadron. 6 mg IV push every 12 hours. Patient was not a candidate for remdesivir and [id number]. Patient received 2 units of convalescent plasma. Continue nutritional support. Continue GI and DVT prophylaxis. Remains critically ill, and prognosis is guarded. Updated her daughter over the phone on her condition, CODE STATUS was changed to DO NOT RESUSCITATE. Family is considering possibly comfort care measures. Critical care time over 30 minutes We'll continue to follow. Time with Patient: Greater than 30
--- NOTE | 2020-10-03 13:36 | P.PN ---
Subjective Progress Note Date: 10/03/20 Ann-Marie Molina, is a 80-year-old female patient of Dr. Esquivel, who presented to [facility] emergency room with a chief complaint of worsening shortness of breath generalized weakness and confusion, symptoms started about 6 days prior to admission but her condition declined significantly in the last 2 days. Patient was evaluated in emergency room vital examination on presentation revealed a temperature of 98.4 pulse 133 respiration 30 blood pressure 135/67 pulse ox 55% on room air her white blood count was 3.8 hemoglobin 15.9 platelet count 99 sodium 133 potassium 4.5 plasma lactic acid 11.4 BUN 17 creatinine 0.9 arterial blood gases revealed a pH of 7.19 pCO2 49 by mouth to 59 . Chest x-ray done in the emergency room revealed moderate pulmonary edema that could relate to congestive heart failure or ARDS , EKG revealed sinus tachycardia with right bundle branch block , coronavirus PCR was positive. patient was admitted to intensive care unit she was started on BiPAP. Patient developed atrial fibrillation with rapid ventricular response with a heart rate of 170 she was started on Cardizem drip, she had episodes of hypotension, she was started on levophed drip, and earlier this morning she required intubation and mechanical ventilation. Her past medical history is significant for history of hypertension, history of hyperlipidemia, history of insulin-dependent diabetes mellitus, and history of osteoporosis On 09/29/2020 patient was seen and examined in the ICU she is intubated sedated maintained on mechanical ventilation she is on assist control rate of 30 FiO2 60% and a PEEP of 15. PH is 7.18 pCO2 46 by mouth 08/26/2007 lactic acid is down to 4.6 blood pressure 100/52 she is still maintained on levophed infusion, she is maintained on IV Decadron she received 1 unit of convalescent plasma, white blood count 24.6 hemoglobin 14.1 platelet count 181 sodium 136 potassium 5.6 chloride 110 CO2 17 BUN 28 creatinine 1.2 glucose level 165 On 09/30/2020 patient was seen and examined in the ICU she is intubated sedated maintained on mechanical ventilation, today she was taken off of vasopressors and has been tolerating well blood pressure at this time 98/55, pH is 7.30 pCO2 37 by mouth to 72 white blood count is down to 6.6 hemoglobin 12.6 platelet cou nt 107 d-dimer is 1.77 BUN 34 creatinine 0.96 On 10/01/2020 patient was seen and examined in the ICU she remains intubated sedated maintained on mechanical ventilation FiO2 55% rate of 24 and PEEP of 15 temperature is 97.5 pulse 79 respiration 24 blood pressure 127/58 pulse ox 91% on FiO2 55% mechanical ventilation d-dimer 6.8 to pH 7.26 pCO2 42 by mouth to 76 white blood count is 5.8 hemoglobin 12.6 platelet count 102 BUN 37 creatinine 0.96 liver enzymes are elevated with AST at 71 a LT at 38 On 10/02/2020 patient was seen and examined in the ICU she is intubated sedated maintained on mechanical ventilation FiO2 55% rate of 24 and PEEP of 15 her vital examination reveals a temperature of 97.5 pulse 75 respiration 24 blood pressure 103/46 pulse ox 91% arterial blood gas reveals a pH of 7.27 pCO2 42 pO2 69 White blood count is 6.9 hemoglobin 12.8 platelet count 71 sodium 141 potassium 4.7 chloride 120 CO2 20 BUN 33 creatinine 0.73 patient is not on any IV pressors at this time. On 10/03/2020 patient was seen and examined in the ICU she is intubated sedated maintained on mechanical ventilation, she is on FiO2 of 65% rate 24 PEEP of 15, temperature 97.6 pulse 51 respiration 24 blood pressure 131/43 pulse ox 94% ABG reveals a pH of 7.28 pCO2 44 PO2 60 white blood count is 7.2 hemoglobin 12.4 platelet count 41 sodium 144 potassium 4.8 chloride 120 glucose level 242 at this time will change Accu-Chek and coverage to every 3 hours Objective - Vital Signs Vital signs: Vital Signs Temp 98.2 F 10/03/20 04:00 Pulse 67 10/03/20 07:00 Resp 24 10/03/20 07:00 BP 119/51 10/03/20 07:00 Pulse Ox 93 L 10/03/20 07:00 Intake & Output 10/02/20 10/03/20 10/03/20 18:59 06:59 18:59 Intake Total 2040.520 2093.261 522 Output Total 400 720 110 Balance 6590.814 8324.261 412 Weight 94.4 kg 96.3 kg Intake: IV 1232 212 408 0.9 Sodium Chloride 120 10 Pressure Bag 72 72 18 Sodium Chloride 0.9% 1, 1040 130 390 000 ml @ 130 mls/hr IV . Q7H42M [facility] Rx#:[id number] Intake, IV Titration 120.615 2184.261 Amount Norepinephrine 8 mg In 58.520 Sodium Chloride 0.9% 250 ml @ 0.05 MCG/KG/MIN 7. 392 mls/hr IV .Q24H [facility] Rx#:[id number] Sodium Chloride 0.9% 1, 1300 000 ml @ 130 mls/hr IV . Q7H42M [facility] Rx#:[id number] propofoL 1,000 mg In 100 183.261 Empty Bag 1 bag @ Titrate IV .Q0M [facility] Rx#: [id number] Tube Feeding 308 308 84 Blood Product 252 Ffp Pher Conval High [address] Unit [id number] Other 90 90 30 Output: Urine 400 720 110 Other: Voiding Method Indwelling Catheter Indwelling Catheter ABP, PAP, CO, CI - Last Documented Arterial Blood Pressure 135/44 - Exam Patient is intubated sedated maintained on mechanical ventilation HEENT head normocephalic and atraumatic Neck is supple no JVD no goiter no lymphadenopathy Chest exam reveals a few scattered rhonchi no wheezing Cardiac exam reveals regular heart sounds no gallops no murmurs Abdomen is soft nontender no organomegaly with normal bowel sounds Extremity exam reveals no edema no cyanosis or clubbing - Labs CBC & Chem 7: 10/03/20 04:20 10/03/20 04:20 Labs: Abnormal Lab Results - Last 24 Hours (Table) 10/02/20 10/02/20 10/03/20 Range/Units 12:04 17:52 00:05 Plt Count (150-450) k/uL Lymphocytes # (Manual) (1.0-4.8) k/uL D-Dimer (<0.60) mg/L FEU ABG pH (7.35-7.45) ABG pO2 (83-108) mmHg ABG O2 Saturation (94-97) % Chloride (98-107) mmol/L Carbon Dioxide (22-30) mmol/L BUN (7-17) mg/dL Glucose (74-99) mg/dL POC Glucose (mg/dL) 172 H 178 H 201 H (75-99) mg/dL Calcium (8.4-10.2) mg/dL AST (14-36) U/L ALT (4-34) U/L Lactate Dehydrogenase (313-618) U/L C-Reactive Protein (<10.0) mg/L Total Protein (6.3-8.2) g/dL Albumin (3.5-5.0) g/dL 10/03/20 10/03/20 10/03/20 Range/Units 04:20 04:20 04:20 Plt Count 41 L (150-450) k/uL Lymphocytes # (Manual) 0.43 L (1.0-4.8) k/uL D-Dimer >34.11 H (<0.60) mg/L FEU ABG pH (7.35-7.45) ABG pO2 (83-108) mmHg ABG O2 Saturation (94-97) % Chloride 120 H (98-107) mmol/L Carbon Dioxide 20 L (22-30) mmol/L BUN 36 H (7-17) mg/dL Glucose 242 H (74-99) mg/dL POC Glucose (mg/dL) (75-99) mg/dL Calcium 8.0 L (8.4-10.2) mg/dL AST 54 H (14-36) U/L ALT 41 H (4-34) U/L Lactate Dehydrogenase 1481 H (313-618) U/L C-Reactive Protein 15.1 H (<10.0) mg/L Total Protein 5.0 L (6.3-8.2) g/dL Albumin 2.0 L (3.5-5.0) g/dL 10/03/20 10/03/20 Range/Units 05:30 05:33 Plt Count (150-450) k/uL Lymphocytes # (Manual) (1.0-4.8) k/uL D-Dimer (<0.60) mg/L FEU ABG pH 7.28 L (7.35-7.45) ABG pO2 60 L (83-108) mmHg ABG O2 Saturation 90.1 L (94-97) % Chloride (98-107) mmol/L Carbon Dioxide (22-30) mmol/L BUN (7-17) mg/dL Glucose (74-99) mg/dL POC Glucose (mg/dL) 205 H (75-99) mg/dL Calcium (8.4-10.2) mg/dL AST (14-36) U/L ALT (4-34) U/L Lactate Dehydrogenase (313-618) U/L C-Reactive Protein (<10.0) mg/L Total Protein (6.3-8.2) g/dL Albumin (3.5-5.0) g/dL Microbiology - Last 24 Hours (Table) 09/28/20 16:43 Blood Culture - Preliminary Blood No Growth after 96 hours Assessment and Plan Plan: 1. Acute hypoxic respiratory failure, requiring intubation and mechanical ventilation 2. Poitive Covid 19 testing 3. bilateral pulmonary infiltrates, likely related to pneumonia due to Covid 19 virus 4. Episode of atrial fibrillation with rapid ventricular response 5. Acute lactic acidosis improving 6. Episode of hypotension improved with IV fluid and levophed drip 7. Underlying history of hypertension 8. Underlying history of hyperlipidemia 9. Underlying history of diabetes mellitus Currently patient is intubated sedated maintained on mechanical ventilation She is maintained on IV Decadron and subcu Lovenox Will follow closely prognosis is guarded due to age and severity of illness
[2020-10-03 14:40] LABS: Glucose,Whole Blood 200 mg/dL (75-99)
[2020-10-03] MEDS: NOREPINEPHRINE 8 MG in SODIUM CHLORIDE 0.9% 250 ML IV SCH (15:34)
[2020-10-03 17:15] LABS: Glucose,Whole Blood 251 mg/dL (75-99)
[2020-10-03 17:24] LABS: Glucose,Whole Blood 248 mg/dL (75-99)
[2020-10-03 20:47] LABS: Glucose,Whole Blood 256 mg/dL (75-99)
[2020-10-03 23:44] LABS: Glucose,Whole Blood 174 mg/dL (75-99)
[2020-10-04 02:56] LABS: Glucose,Whole Blood 173 mg/dL (75-99)
[2020-10-04] MEDS: PIPERACILLIN-TAZOBACTAM 3.375 GM in SODIUM CHLORIDE 0.9% 100 ML IVPB SCH ×3 (03:02→17:31)
[2020-10-04] MEDS: INSULIN ASPART (NovoLOG) 100 UNIT/ML VIAL SQ SCH ×16 (03:03→23:52)
[2020-10-04] MEDS: SODIUM CHLORIDE 0.9% 1,000 ML IV SCH ×4 (03:18→20:51)
[2020-10-04 05:40] LABS: Glucose,Whole Blood 163 mg/dL (75-99)
[2020-10-04 05:40] LABS: ALT 44 U/L (4-34); AST 56 U/L (14-36); African American GFR (CKD) >90 (>60 ml/min/1.73 sqM); Albumin 1.9 g/dL (3.5-5.0); Alkaline Phosphatase 105 U/L (38-126); Anion Gap 0 mmol/L; Blood Urea Nitrogen 36 mg/dL (7-17); C Reactive Protein 10.3 mg/L (<10.0); Calcium 8.2 mg/dL (8.4-10.2); Carbon Dioxide 22 mmol/L (22-30); Chloride 123 mmol/L (98-107); Glucose 206 mg/dL (74-99); LDH 1832 U/L (313-618); Non-African American GFR(CKD) 85 (>60 ml/min/1.73 sqM); Potassium 4.9 mmol/L (3.5-5.1); Sodium 145 mmol/L (137-145); Total Bilirubin 1.2 mg/dL (0.2-1.3)
[2020-10-04 05:45] LABS: ABG Base Excess -4.8 mmol/L; ABG HCO3 22 mmol/L (21-25); ABG PCO2 43 mmHg (35-45); ABG PH 7.31 (7.35-7.45); ABG PO2 63 mmHg (83-108); ABG TCO2 23 mmol/L (19-24); Allen Test Performed? Yes
[2020-10-04 06:31] LABS: HCT 40.3 % (34.0-46.0); HGB 12.5 gm/dL (11.4-16.0); Hypochromasia Slight; MCH 30.2 pg (25.0-35.0); MCV 97.4 fL (80.0-100.0); Mean Platelet Volume 11.1; RBC 4.14 m/uL (3.80-5.40); RDW 14.7 % (11.5-15.5)
[2020-10-04 06:43] VITALS: RESP 24
[2020-10-04 06:44] LABS: Platelet Count 41 k/uL (150-450)
[2020-10-04] MEDS: ALBUTEROL HFA INHALER INHALATION SCH ×4 (07:27→19:17)
--- NOTE | 2020-10-04 07:51 | XR ---
EXAMINATION TYPE: XR chest 1V portable DATE OF EXAM: 10/04/2020 CLINICAL HISTORY: Difficulty breathing progress study. TECHNIQUE: Single AP portable semiupright view of the chest is obtained. COMPARISON: Chest x-ray from one day earlier and older studies FINDINGS: Stable endotracheal and orogastric tubes. Stable left internal jugular central venous cath eter. Persistent cardiomegaly with atherosclerotic thoracic aorta. Background reticular interstitial change s bilaterally with persistent lower lung opacities. Underlying scoliotic curvature or positioning. IMPRESSION: Bilateral multifocal predominantly mid to lower lung acute infiltrates and/or edema on ba ckground cardiomegaly and chronic parenchymal changes redemonstrated. No significant change from one day earlier.
[2020-10-04 08:33] LABS: Glucose,Whole Blood 155 mg/dL (75-99)
[2020-10-04] MEDS: DEXAMETHASONE SOD PHOSPHATE 10 MG/ML 1 ML VIAL IV SCH ×2 (08:38→20:51)
[2020-10-04] MEDS: ZINC SULFATE 220 MG CAP PO SCH (08:38)
[2020-10-04] MEDS: ASCORBIC ACID 500 MG TAB PO SCH (08:38)
[2020-10-04] MEDS: CHOLECALCIFEROL 25 MCG (1000 IU) TABLET PO SCH (08:38)
[2020-10-04] MEDS: CHLORHEXIDINE GLUCONATE 15 ML CUP MUCOUS MEM SCH ×2 (08:38→20:50)
[2020-10-04] MEDS: ENOXAPARIN 60 MG/0.6 ML SYRINGE SQ SCH ×2 (08:38→20:51)
[2020-10-04] MEDS: PANTOPRAZOLE 40 MG/10 ML VIAL IVP SCH (08:38)
[2020-10-04] MEDS: SODIUM BICARBONATE TAB 650 MG TAB PO SCH ×3 (08:39→21:46)
[2020-10-04 08:46] LABS: Lymphocytes # (M) 0.16 k/uL (1.0-4.8); Monocytes # (M) 0.16 k/uL (0-1.0); Myelocytes # (M) 0.23 k/uL (0); Myelocytes % 3 %; Neutrophils # (M) 7.25 k/uL (1.3-7.7); Neutrophils % (M) 93 %; Nucleated Red Blood Cells 2 /100 WBC (0-0); Total Cells Counted 100; WBC 7.8 k/uL (3.8-10.6)
[2020-10-04 08:47] LABS: Poikilocytosis (M) Present; Polychromasia Present
[2020-10-04 10:20] VITALS: BMI 37.8
[2020-10-04 12:01] LABS: Glucose,Whole Blood 209 mg/dL (75-99)
--- NOTE | 2020-10-04 13:53 | P.PN ---
Subjective Progress Note Date: 10/04/20 Principal diagnosis: Acute hypoxic respiratory failure secondary to Covid 19 pneumonitis. this 80-year-old female patient, known history of diabetes and hypertension, was brought into the emergency department upon the request of her family because of generalized weakness, falls and confusion x6 days. Her condition declined and the patient decompensated over the past 48-72 hours. This was rather a quick deterioration in her condition. She had been having also shortness of breath for the past 2 days.. In the emergency department, the initial vitals showed that the patient was profoundly hypoxic with a pulse ox of 50%. At that point, the patient also had blood work that showed severe lactic acidosis with a lactic acid level of 11. She wasgiven a chest x-ray that showed diffuse bilateral pulmonary infiltrates. The patient was given a bolus of 1 L of IV fluid and following that she was moved to the intensive care unit. The patient was kept on BiPAP throughout the night and currently she is on a BiPAP pressure of 14/7 cm of water with an FiO2 of 100%. Her FiO2 was 85%. She is responsive, however she is quite tachypneic and she is breathing in the mid 30s and she is struggling with her breathing and earlier this morning she started getting more restless and agitated. We had to start on Precedex which is currently running at 0.4 mcg/kg/h. She seems to be much more comfortable while on Precedex.had a bout of atrial fibrillation with rapid ventricular response in the ICU. The heart rate went up to 170 range. She was given 20 mg of Cardizem IV push. She converted back to normal sinus rhythm. She became hypotensive and her systolic blood pressure in the mid 60s. She was given additional 2 L of IV fluids and the patient is currently on normal saline running at 30 mL an hour. She will be also started on norepinephrine infusion. Lactic acid level is down to 6 based on the follow-up blood work.the blood gas showed a pH of 7.29 with a pCO2 of 37 and pO2 of 80. This was done a bipolar or 14/7 with an FiO2 of 100%. Chest x- ray showing diffuse breath and pulmonary infiltrates. D-dimer is at 1.09. The patient has a LDH of 1724, CRP level is 77, troponin is at 0.118, the proBNP level is 330, the patient has a lactic acid level of 11.4 at time of admission her lactic acid level is down to 6.7 and she has an anion gap metabolic acidosis with a serum bicarb of 14 and a gap of 19. UA is positive for glucose, +4, and COVID19 testing was positive. As such, her presentation is consistent with COVID 19 pneumonia. 09/29/2020, the patient remains intubated on a mechanical ventilator. The patient was intubated yesterday for an acute hypoxic respiratory failure and she was placed on mechanical ventilator she is currently off of a running at 40 mcg/kg per minute. The patient is on no paralytics. She is quite successful mechanical ventilator. She is an assist-control mode at the rate of 30 with a tidal volume of 375 and FiO2 of 60% with a PEEP of this. The chest x-ray from today is showing bilateral perihilar and lower lobe in addition to right upper lobe pulmonary rate. ET tube is in a good location. It is seen around 2 cm above the goyo. The patient also has a left internal jugular. Some today showed a pH of 7.18 with a pCO2 of 46 and pO2 of 108 and this wasn't an FiO2 of 60%. Meanwhile, the patient was quite hypotensive and acidotic and the patient had a very high lactic acid level of 11.4 which dropped down to 4.6 with fluid resuscitation. Overall, the patient received a total of 3 L of IV fluid in the form of normal saline and the patient is currently running at 130s's an hour of normal saline. Urine output is in order of 30-40 mL an hour and the net fluid balance is been +4.8 L over the past 24 hours. As such the patient is well resuscitated. Most recent blood pressure is 95/44 and the patient is currently on pressors at 19 mcg/ per minute of norepinephrine infusion. The procalcitonin level was at 0.53 and blood cultures and sputum cultures were sent and the patient was covered with empiric antibiotics and the patient was given cefepime and Levaquin. White cell count today's at 24. She was given Decadron. She was given convalescent plasma one unit.. The renal function is stable. E lectrolytes are stable. Potassium level is at 5.6 and this needs to be repeated. Serum bicarb is at 17 which is improving. Less lactic acid level from yesterday was at 4.6. The patient's blood sugar is at 160 and she is on sliding scale coverage for blood sugar control. Cardiac rhythm is sinus. No further bouts of atrial fibrillation. She did have one a 1 bouts yesterday prior to intubation and she converted back into normal sinus rhythm without any major difficulties. Patient was reevaluated today on 09/30/2020, remains in the ICU, intubated and mechanically ventilated. Patient is on volume control plus, tidal volume is 450, rate is 24, FiO2 is 60%, PEEP is at 15. ABG showed a pO2 of 72 pCO2 of 37 pH of 7.30. Patient is on propofol at 30 mcg/kg/m, off norepinephrine, IV fluid is at 13 0 mL per hour. Patient is on enteral feeding patient received 1 unit of convalescent plasma she was out of the window for remdesivir, she is on Decadron 20 mg daily, and she is also on Lovenox 40 mg subcu daily. Today, after reviewing her ABG and reviewed her chest x-ray, I felt there is no need to make any major changes in her ventilator settings. Hence no changes were made, and we will plan to continue present supportive care measures. Patient remains empirically on antibiotics. Her bicarb is improving not requiring any bicarb drip. She remains on sliding scale coverage for blood sugar. Presently in sinus rhythm, no further episodes of atrial fibrillation. Chest x-ray continues to show bilateral multifocal infiltrates with cardiomegaly. CBC is relatively normal. D-dimer is 1.77. Basic metabolic profile is normal. Renal profile is normal. LDH is 1814 and C-reactive protein is 76.3. Pro-calcitonin is elevated at 0.74. Levaquin and Zosyn and remain on board. Reevaluated today on 10/01/2020, patient remains in the ICU, intubated and mechanically ventilated. She is on assist control rate of 24 tidal volume is 450 FiO2 is 55% PEEP is 15. ABG showed a pO2 of 76 pCO2 of 42 pH of 7.26. Has patient was placed on oral bicarb. Patient is on propofol at 56 mcg/kg/m, norepinephrine at 0.03 mcg/kg/m, she is on tube feeding, patient will receive 1 L of fluid bolus in the formal 0.9 normal saline, and hopefully wean norepinephrine down and possibly discontinue. Chest x-ray continues to show bilateral infiltrates. And again her ABG is marginal on 60% FiO2 her pO2 was only 76. FiO2 was decreased down to 55%. No major change management analyst the last 24 hours, patient is basically about the same. CBC is relatively normal. D-dimer 6.82. Basic metabolic profile is normal. Renal profile is normal. LDH is 1473 and C-reactive protein is 47.3. Patient remains on the Covid 19 cocktails. Remains on Decadron 20 mg IV push daily, remains on Zosyn and Levaquin. Sputum cultures are negative. Hence we will discontinue Levaquin and continue Zosyn Patient was reevaluated today on 10/02/2020, remains in the ICU, intubated and mechanically ventilated. Patient was initially intubated on 09/28/2020. Patient remains on high PEEP at 15, thyroglobulin is 450, patient is on volume control plus, inspiratory time is 0.8 seconds, FiO2 is 55% and PEEP is at 15. ABG showed a pO2 of 69 pCO2 42 pH of 7.27, hence cut down her FiO2 to 50%, and kept her on the same ventilator settings. Patient is on propofol at 55 mcg/kg/m, off norepinephrine and her IV fluids remains at 1 50 mL per hour. Chest x-ray continues to show bilateral infiltrates, basically the same, does not seem to be any better or any worse. Her d-dimer is significantly high today, over 35, hence we increased her Lovenox 50 mg subcu twice a day. Her peak airway pressure is 35, plateau pressure is 32. Urine output is about 40 mL per hour. Basic metabolic profile today is normal. Bicarb remains a bit low at 20. Renal profile is normal. CBC is relatively normal. Inflammatory markers remain elevated LDH is 1476 and C-reactive protein is 29.7. Patient was reevaluated today on 10/03/2020, remains in ICU, intubated and mechanically ventilated. Her ventilator settings are volume control plus at 450, FiO2 is 65% PEEP is 15 and the rate is 24. ABG remains marginal with a pO2 of 60 pCO2 of 44 pH of 7.28. Remains on propofol not requiring any other sedation at this point. Remains on enteral feeding via orogastric tube, she is up to goal. Chest x-ray is basically about the same continues to show bilateral interstitial infiltrates. It is not any better and not any worse. Patient is hemodynamically stable, not requiring any pressors. Her d-dimer is 34 hence the Lovenox dose was increased. Her C-reactive protein is 15.1 [place] [address] labs today were reviewed, chest x-ray was reviewed and I updated her daughter on her condition. The family seems to be inclined to consider comfort care measures in the meantime the CODE STATUS was changed to DO NOT RESUSCITATE CODE STATUS. Daughter was made aware that her condition has not shown any improvement since the day she was intubated on 09/28/2020. I believe her overall clinical status is unchanged. Patient was reevaluated today on 10/04/2020, remains in the ICU, intubated and mechanically ventilated. Patient is on assist control rate of 24, volume control plus at 450 FiO2 65% PEEP of 15. ABG remains marginal in spite of high FiO2 and high PEEP, pO2 is only 63 pCO2 is 43 pH of 7.31. Chest x-ray continues to show bilateral interstitial infiltrates, not much of a change noted in the last 1 week. Patient remains on propofol at 20 mcg/kg/m she is also on IV fluid at 1 20 mL per hour. On enteral feeding vital HP. Peak airway pressure is in the high 30s and plateau pressure is 36. CBC showed WBC count of 7.8 hemoglobin is 12.5, platelets are low at 41,000 patient is on Lovenox because of significantly elevated d-dimer. Electrolytes showed slightly elevated sodium of 145 otherwise electrolytes are normal. Renal profile is normal. LDH is 1832, seems to be worsening. and C-reactive protein is 10.3, noted to be a bit better today. D-dimer remains elevated at greater than 34. Objective - Vital Signs Vital signs: Vital Signs Temp 97.9 F 10/04/20 08:00 Pulse 77 10/04/20 10:00 Resp 24 10/04/20 10:00 BP 134/57 10/04/20 10:00 Pulse Ox 93 L 10/04/20 10:00 Intake & Output 10/03/20 10/04/20 10/04/20 18:59 06:59 18:59 Intake Total 2176.260 2419.784 837.736 Output Total 680 745 160 Balance 2199.963 9449.784 677.736 Weight 97 kg 97 kg Intake: IV 1732 1832 644 Piperacillin-Tazobactam 3 100 200 100 .375 gm In Sodium Chloride 0.9% 100 ml @ 25 mls/hr IVPB Q8H [facility] Rx#: [id number] Pressure Bag 72 72 24 Sodium Chloride 0.9% 1, 1560 1560 520 000 ml @ 130 mls/hr IV . Q7H42M [facility] Rx#:[id number] Intake, IV Titration 132.260 161.784 79.736 Amount propofoL 1,000 mg In 132.260 161.784 79.736 Empty Bag 1 bag @ Titrate IV .Q0M [facility] Rx#: [id number] Tube Feeding 252 336 84 Other 60 90 30 Output: Urine 680 745 160 Other: Voiding Method Indwelling Catheter Indwelling Catheter ABP, PAP, CO, CI - Last Documented Arterial Blood Pressure 160/51 - Exam Physical Exam: Revealed a 80-year-old female in no distress, ventilated, sedated, comfortable. Head: Atraumatic, normocephalic HEENT:[Neck is supple.] [No neck masses.] [No thyromegaly.] [No JVD.] endo tracheal tube and orogastric tubes are intact. Chest: [Clear throughout, minimal crackles at the bases no rhonchi and no wheezes. Cardiac Exam: [Normal S1 and S2, no S3 gallop, no murmur.] Abdomen: [Soft, nontender, no megaly, no rebound, no guarding, normal bowel sounds.] Extremities: [No clubbing, no edema, no cyanosis.] Neurological Exam: Could not assess, patient is sedated and maintained on propofol. She is calm and comfortable, pupils are equally reactive to light. With holding sedation will be done today for assessment of mental status. Psychiatric: Could not be assessed. Skin: No rashes. - Labs CBC & Chem 7: 10/04/20 04:45 10/04/20 04:45 Labs: Abnormal Lab Results - Last 24 Hours (Table) 10/03/20 10/03/20 10/03/20 Range/Units 14:39 17:14 17:23 Plt Count (150-450) k/uL Lymphocytes # (Manual) (1.0-4.8) k/uL Myelocytes # (Manual) (0) k/uL Nucleated RBCs (0-0) /100 WBC D-Dimer (<0.60) mg/L FEU ABG pH (7.35-7.45) ABG pO2 (83-108) mmHg ABG O2 Saturation (94-97) % Chloride (98-107) mmol/L BUN (7-17) mg/dL Glucose (74-99) mg/dL POC Glucose (mg/dL) 200 H 251 H 248 H (75-99) mg/dL Calcium (8.4-10.2) mg/dL AST (14-36) U/L ALT (4-34) U/L Lactate Dehydrogenase (313-618) U/L Creatine Kinase (30-135) U/L C-Reactive Protein (<10.0) mg/L Total Protein (6.3-8.2) g/dL Albumin (3.5-5.0) g/dL 10/03/20 10/03/20 10/04/20 Range/Units 20:45 23:43 02:55 Plt Count (150-450) k/uL Lymphocytes # (Manual) (1.0-4.8) k/uL Myelocytes # (Manual) (0) k/uL Nucleated RBCs (0-0) /100 WBC D-Dimer (<0.60) mg/L FEU ABG pH (7.35-7.45) ABG pO2 (83-108) mmHg ABG O2 Saturation (94-97) % Chloride (98-107) mmol/L BUN (7-17) mg/dL Glucose (74-99) mg/dL POC Glucose (mg/dL) 256 H 174 H 173 H (75-99) mg/dL Calcium (8.4-10.2) mg/dL AST (14-36) U/L ALT (4-34) U/L Lactate Dehydrogenase (313-618) U/L Creatine Kinase (30-135) U/L C-Reactive Protein (<10.0) mg/L Total Protein (6.3-8.2) g/dL Albumin (3.5-5.0) g/dL 10/04/20 10/04/20 10/04/20 Range/Units 04:45 04:45 04:45 Plt Count 41 L (150-450) k/uL Lymphocytes # (Manual) 0.16 L (1.0-4.8) k/uL Myelocytes # (Manual) 0.23 H (0) k/uL Nucleated RBCs 2 H (0-0) /100 WBC D-Dimer >34.10 H (<0.60) mg/L FEU ABG pH (7.35-7.45) ABG pO2 (83-108) mmHg ABG O2 Saturation (94-97) % Chloride 123 H (98-107) mmol/L BUN 36 H (7-17) mg/dL Glucose 206 H (74-99) mg/dL POC Glucose (mg/dL) (75-99) mg/dL Calcium 8.2 L (8.4-10.2) mg/dL AST 56 H (14-36) U/L ALT 44 H (4-34) U/L Lactate Dehydrogenase 1832 H (313-618) U/L Creatine Kinase (30-135) U/L C-Reactive Protein 10.3 H (<10.0) mg/L Total Protein 5.0 L (6.3-8.2) g/dL Albumin 1.9 L (3.5-5.0) g/dL 10/04/20 10/04/20 10/04/20 Range/Units 04:45 05:38 05:42 Plt Count (150-450) k/uL Lymphocytes # (Manual) (1.0-4.8) k/uL Myelocytes # (Manual) (0) k/uL Nucleated RBCs (0-0) /100 WBC D-Dimer (<0.60) mg/L FEU ABG pH 7.31 L (7.35-7.45) ABG pO2 63 L (83-108) mmHg ABG O2 Saturation 92.0 L (94-97) % Chloride (98-107) mmol/L BUN (7-17) mg/dL Glucose (74-99) mg/dL POC Glucose (mg/dL) 163 H (75-99) mg/dL Calcium (8.4-10.2) mg/dL AST (14-36) U/L ALT (4-34) U/L Lactate Dehydrogenase (313-618) U/L Creatine Kinase 26 L (30-135) U/L C-Reactive Protein (<10.0) mg/L Total Protein (6.3-8.2) g/dL Albumin (3.5-5.0) g/dL 10/04/20 10/04/20 Range/Units 08:32 11:59 Plt Count (150-450) k/uL Lymphocytes # (Manual) (1.0-4.8) k/uL Myelocytes # (Manual) (0) k/uL Nucleated RBCs (0-0) /100 WBC D-Dimer (<0.60) mg/L FEU ABG pH (7.35-7.45) ABG pO2 (83-108) mmHg ABG O2 Saturation (94-97) % Chloride (98-107) mmol/L BUN (7-17) mg/dL Glucose (74-99) mg/dL POC Glucose (mg/dL) 155 H 209 H (75-99) mg/dL Calcium (8.4-10.2) mg/dL AST (14-36) U/L ALT (4-34) U/L Lactate Dehydrogenase (313-618) U/L Creatine Kinase (30-135) U/L C-Reactive Protein (<10.0) mg/L Total Protein (6.3-8.2) g/dL Albumin (3.5-5.0) g/dL Microbiology - Last 24 Hours (Table) 09/28/20 16:43 Blood Culture - Preliminary Blood No Growth after 120 hours Assessment and Plan Assessment: Impression: Acute hypoxic respiratory failure secondary to covid 19 pneumonitis. Also suspect ARDS. Lymphopenia with thrombocytopenia secondary to above. Elevated inflammatory markers secondary to Covid 19 pneumonitis. Type 2 diabetes. Benign essential hypertension. Paroxysmal atrial fibrillation. Hypovolemic hypotension,, responding to fluids mostly. Elevated d-dimer secondary to above. Recommendation: Continue ventilatory support. No changes were made on the ventilator today. Continue Lovenox to 50 mg subcu twice a day. Continue Covid 19 cocktail. Continue Decadron. 6 mg IV push every 12 hours. Patient was not a candidate for remdesivir and [id number]. Patient received 2 units of convalescent plasma. Continue nutritional support. Continue GI and DVT prophylaxis. Remains critically ill and prognosis is poor Family is considering possibly comfort care measures. Critical care time over 30 minutes We'll continue to follow. Time with Patient: Greater than 30
--- NOTE | 2020-10-04 14:29 | P.PN ---
Subjective Progress Note Date: 10/04/20 Ann-Marie Molina, is a 80-year-old female patient of Dr. Esquivel, who presented to [facility] emergency room with a chief complaint of worsening shortness of breath generalized weakness and confusion, symptoms started about 6 days prior to admission but her condition declined significantly in the last 2 days. Patient was evaluated in emergency room vital examination on presentation revealed a temperature of 98.4 pulse 133 respiration 30 blood pressure 135/67 pulse ox 55% on room air her white blood count was 3.8 hemoglobin 15.9 platelet count 99 sodium 133 potassium 4.5 plasma lactic acid 11.4 BUN 17 creatinine 0.9 arterial blood gases revealed a pH of 7.19 pCO2 49 by mouth to 59 . Chest x-ray done in the emergency room revealed moderate pulmonary edema that could relate to congestive heart failure or ARDS , EKG revealed sinus tachycardia with right bundle branch block , coronavirus PCR was positive. patient was admitted to intensive care unit she was started on BiPAP. Patient developed atrial fibrillation with rapid ventricular response with a heart rate of 170 she was started on Cardizem drip, she had episodes of hypotension, she was started on levophed drip, and earlier this morning she required intubation and mechanical ventilation. Her past medical history is significant for history of hypertension, history of hyperlipidemia, history of insulin-dependent diabetes mellitus, and history of osteoporosis On 09/29/2020 patient was seen and examined in the ICU she is intubated sedated maintained on mechanical ventilation she is on assist control rate of 30 FiO2 60% and a PEEP of 15. PH is 7.18 pCO2 46 by mouth 08/26/2007 lactic acid is down to 4.6 blood pressure 100/52 she is still maintained on levophed infusion, she is maintained on IV Decadron she received 1 unit of convalescent plasma, white blood count 24.6 hemoglobin 14.1 platelet count 181 sodium 136 potassium 5.6 chloride 110 CO2 17 BUN 28 creatinine 1.2 glucose level 165 On 09/30/2020 patient was seen and examined in the ICU she is intubated sedated maintained on mechanical ventilation, today she was taken off of vasopressors and has been tolerating well blood pressure at this time 98/55, pH is 7.30 pCO2 37 by mouth to 72 white blood count is down to 6.6 hemoglobin 12.6 platelet cou nt 107 d-dimer is 1.77 BUN 34 creatinine 0.96 On 10/01/2020 patient was seen and examined in the ICU she remains intubated sedated maintained on mechanical ventilation FiO2 55% rate of 24 and PEEP of 15 temperature is 97.5 pulse 79 respiration 24 blood pressure 127/58 pulse ox 91% on FiO2 55% mechanical ventilation d-dimer 6.8 to pH 7.26 pCO2 42 by mouth to 76 white blood count is 5.8 hemoglobin 12.6 platelet count 102 BUN 37 creatinine 0.96 liver enzymes are elevated with AST at 71 a LT at 38 On 10/02/2020 patient was seen and examined in the ICU she is intubated sedated maintained on mechanical ventilation FiO2 55% rate of 24 and PEEP of 15 her vital examination reveals a temperature of 97.5 pulse 75 respiration 24 blood pressure 103/46 pulse ox 91% arterial blood gas reveals a pH of 7.27 pCO2 42 pO2 69 White blood count is 6.9 hemoglobin 12.8 platelet count 71 sodium 141 potassium 4.7 chloride 120 CO2 20 BUN 33 creatinine 0.73 patient is not on any IV pressors at this time. On 10/03/2020 patient was seen and examined in the ICU she is intubated sedated maintained on mechanical ventilation, she is on FiO2 of 65% rate 24 PEEP of 15, temperature 97.6 pulse 51 respiration 24 blood pressure 131/43 pulse ox 94% ABG reveals a pH of 7.28 pCO2 44 PO2 60 white blood count is 7.2 hemoglobin 12.4 platelet count 41 sodium 144 potassium 4.8 chloride 120 glucose level 242 at this time will change Accu-Chek and coverage to every 3 hours. 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, patient is stable however there is no significant improvement for the last several days despite maximum medical therapy she is still requiring high oxygen requirement no significant improvement in chest x- ray today her vital exam reveals a temperature of 97.9 pulse 59 respiration 24 blood pressure 127/78 pulse ox 91% on mechanical ventilation FiO2 65% assist control rate of 24 and PEEP of 15 ABG reveals pH 7.31 pCO2 43 PO2 63 Objective - Vital Signs Vital signs: Vital Signs Temp 97.9 F 10/04/20 08:00 Pulse 77 10/04/20 10:00 Resp 24 10/04/20 10:00 BP 134/57 10/04/20 10:00 Pulse Ox 93 L 10/04/20 10:00 Intake & Output 10/03/20 10/04/20 10/04/20 18:59 06:59 18:59 Intake Total 2176.260 2419.784 758 Output Total 680 745 160 Balance 9722.177 9897.784 598 Weight 97 kg 97 kg Intake: IV 1732 1832 644 Piperacillin-Tazobactam 3 100 200 100 .375 gm In Sodium Chloride 0.9% 100 ml @ 25 mls/hr IVPB Q8H [facility] Rx#: [id number] Pressure Bag 72 72 24 Sodium Chloride 0.9% 1, 1560 1560 520 000 ml @ 130 mls/hr IV . Q7H42M [facility] Rx#:[id number] Intake, IV Titration 132.260 161.784 Amount propofoL 1,000 mg In 132.260 161.784 Empty Bag 1 bag @ Titrate IV .Q0M [facility] Rx#: [id number] Tube Feeding 252 336 84 Other 60 90 30 Output: Urine 680 745 160 Other: Voiding Method Indwelling Catheter Indwelling Catheter ABP, PAP, CO, CI - Last Documented Arterial Blood Pressure 160/51 - Exam Patient is intubated sedated maintained on mechanical ventilation HEENT head normocephalic and atraumatic Neck is supple no JVD no goiter no lymphadenopathy Chest exam reveals a few scattered rhonchi no wheezing Cardiac exam reveals regular heart sounds no gallops no murmurs Abdomen is soft nontender no organomegaly with normal bowel sounds Extremity exam reveals no edema no cyanosis or clubbing - Labs CBC & Chem 7: 10/04/20 04:45 10/04/20 04:45 Labs: Abnormal Lab Results - Last 24 Hours (Table) 10/03/20 10/03/20 10/03/20 Range/Units 11:56 14:39 17:14 Plt Count (150-450) k/uL Lymphocytes # (Manual) (1.0-4.8) k/uL Myelocytes # (Manual) (0) k/uL Nucleated RBCs (0-0) /100 WBC D-Dimer (<0.60) mg/L FEU ABG pH (7.35-7.45) ABG pO2 (83-108) mmHg ABG O2 Saturation (94-97) % Chloride (98-107) mmol/L BUN (7-17) mg/dL Glucose (74-99) mg/dL POC Glucose (mg/dL) 214 H 200 H 251 H (75-99) mg/dL Calcium (8.4-10.2) mg/dL AST (14-36) U/L ALT (4-34) U/L Lactate Dehydrogenase (313-618) U/L Creatine Kinase (30-135) U/L C-Reactive Protein (<10.0) mg/L Total Protein (6.3-8.2) g/dL Albumin (3.5-5.0) g/dL 10/03/20 10/03/20 10/03/20 Range/Units 17:23 20:45 23:43 Plt Count (150-450) k/uL Lymphocytes # (Manual) (1.0-4.8) k/uL Myelocytes # (Manual) (0) k/uL Nucleated RBCs (0-0) /100 WBC D-Dimer (<0.60) mg/L FEU ABG pH (7.35-7.45) ABG pO2 (83-108) mmHg ABG O2 Saturation (94-97) % Chloride (98-107) mmol/L BUN (7-17) mg/dL Glucose (74-99) mg/dL POC Glucose (mg/dL) 248 H 256 H 174 H (75-99) mg/dL Calcium (8.4-10.2) mg/dL AST (14-36) U/L ALT (4-34) U/L Lactate Dehydrogenase (313-618) U/L Creatine Kinase (30-135) U/L C-Reactive Protein (<10.0) mg/L Total Protein (6.3-8.2) g/dL Albumin (3.5-5.0) g/dL 10/04/20 10/04/20 10/04/20 Range/Units 02:55 04:45 04:45 Plt Count (150-450) k/uL Lymphocytes # (Manual) (1.0-4.8) k/uL Myelocytes # (Manual) (0) k/uL Nucleated RBCs (0-0) /100 WBC D-Dimer >34.10 H (<0.60) mg/L FEU ABG pH (7.35-7.45) ABG pO2 (83-108) mmHg ABG O2 Saturation (94-97) % Chloride 123 H (98-107) mmol/L BUN 36 H (7-17) mg/dL Glucose 206 H (74-99) mg/dL POC Glucose (mg/dL) 173 H (75-99) mg/dL Calcium 8.2 L (8.4-10.2) mg/dL AST 56 H (14-36) U/L ALT 44 H (4-34) U/L Lactate Dehydrogenase 1832 H (313-618) U/L Creatine Kinase (30-135) U/L C-Reactive Protein 10.3 H (<10.0) mg/L Total Protein 5.0 L (6.3-8.2) g/dL Albumin 1.9 L (3.5-5.0) g/dL 10/04/20 10/04/20 10/04/20 Range/Units 04:45 04:45 05:38 Plt Count 41 L (150-450) k/uL Lymphocytes # (Manual) 0.16 L (1.0-4.8) k/uL Myelocytes # (Manual) 0.23 H (0) k/uL Nucleated RBCs 2 H (0-0) /100 WBC D-Dimer (<0.60) mg/L FEU ABG pH (7.35-7.45) ABG pO2 (83-108) mmHg ABG O2 Saturation (94-97) % Chloride (98-107) mmol/L BUN (7-17) mg/dL Glucose (74-99) mg/dL POC Glucose (mg/dL) 163 H (75-99) mg/dL Calcium (8.4-10.2) mg/dL AST (14-36) U/L ALT (4-34) U/L Lactate Dehydrogenase (313-618) U/L Creatine Kinase 26 L (30-135) U/L C-Reactive Protein (<10.0) mg/L Total Protein (6.3-8.2) g/dL Albumin (3.5-5.0) g/dL 10/04/20 10/04/20 Range/Units 05:42 08:32 Plt Count (150-450) k/uL Lymphocytes # (Manual) (1.0-4.8) k/uL Myelocytes # (Manual) (0) k/uL Nucleated RBCs (0-0) /100 WBC D-Dimer (<0.60) mg/L FEU ABG pH 7.31 L (7.35-7.45) ABG pO2 63 L (83-108) mmHg ABG O2 Saturation 92.0 L (94-97) % Chloride (98-107) mmol/L BUN (7-17) mg/dL Glucose (74-99) mg/dL POC Glucose (mg/dL) 155 H (75-99) mg/dL Calcium (8.4-10.2) mg/dL AST (14-36) U/L ALT (4-34) U/L Lactate Dehydrogenase (313-618) U/L Creatine Kinase (30-135) U/L C-Reactive Protein (<10.0) mg/L Total Protein (6.3-8.2) g/dL Albumin (3.5-5.0) g/dL Microbiology - Last 24 Hours (Table) 09/28/20 16:43 Blood Culture - Preliminary Blood No Growth after 120 hours Assessment and Plan Plan: 1. Acute hypoxic respiratory failure, requiring intubation and mechanical ventilation 2. Poitive Covid 19 testing 3. bilateral pulmonary infiltrates, likely related to pneumonia due to Covid 19 virus 4. Episode of atrial fibrillation with rapid ventricular response 5. Acute lactic acidosis improving 6. Episode of hypotension improved with IV fluid and levophed drip 7. Underlying history of hypertension 8. Underlying history of hyperlipidemia 9. Underlying history of diabetes mellitus Currently patient is intubated sedated maintained on mechanical ventilation She is maintained on IV Decadron and subcu Lovenox Will follow closely prognosis is guarded due to age and severity of illness
[2020-10-04 14:57] LABS: Glucose,Whole Blood 214 mg/dL (75-99)
[2020-10-04 14:57] LABS: Glucose,Whole Blood 233 mg/dL (75-99)
[2020-10-04] MEDS: NOREPINEPHRINE 8 MG in SODIUM CHLORIDE 0.9% 250 ML IV SCH (14:57)
[2020-10-04 17:28] LABS: Glucose,Whole Blood 164 mg/dL (75-99)
[2020-10-04 20:30] LABS: Glucose,Whole Blood 168 mg/dL (75-99)
[2020-10-04 23:41] LABS: Glucose,Whole Blood 155 mg/dL (75-99)
[2020-10-05] MEDS: MORPHINE SULFATE 4 MG/ML SYRINGE IV PRN ×4 (00:43→18:17)
[2020-10-05 02:42] LABS: Glucose,Whole Blood 169 mg/dL (75-99)
[2020-10-05] MEDS: INSULIN ASPART (NovoLOG) 100 UNIT/ML VIAL SQ SCH ×8 (02:48→12:59)
[2020-10-05] MEDS: PIPERACILLIN-TAZOBACTAM 3.375 GM in SODIUM CHLORIDE 0.9% 100 ML IVPB SCH ×2 (02:49→09:50)
[2020-10-05] MEDS: SODIUM CHLORIDE 0.9% 1,000 ML IV SCH ×2 (02:49→13:02)
[2020-10-05 06:04] LABS: Glucose,Whole Blood 151 mg/dL (75-99)
[2020-10-05] MEDS: ALBUTEROL HFA INHALER INHALATION SCH ×3 (07:11→15:59)
[2020-10-05] MEDS: ENOXAPARIN 60 MG/0.6 ML SYRINGE SQ SCH (09:50)
[2020-10-05] MEDS: CHOLECALCIFEROL 25 MCG (1000 IU) TABLET PO SCH (09:51)
[2020-10-05] MEDS: ASCORBIC ACID 500 MG TAB PO SCH (09:51)
[2020-10-05] MEDS: CHLORHEXIDINE GLUCONATE 15 ML CUP MUCOUS MEM SCH (09:51)
[2020-10-05] MEDS: ZINC SULFATE 220 MG CAP PO SCH (09:51)
[2020-10-05] MEDS: SODIUM BICARBONATE TAB 650 MG TAB PO SCH (09:51)
[2020-10-05] MEDS: PANTOPRAZOLE 40 MG/10 ML VIAL IVP SCH (09:51)
[2020-10-05] MEDS: DEXAMETHASONE SOD PHOSPHATE 10 MG/ML 1 ML VIAL IV SCH (09:51)
[2020-10-05 10:11] LABS: Glucose,Whole Blood 179 mg/dL (75-99)
--- NOTE | 2020-10-05 12:09 | P.PN ---
Subjective Progress Note Date: 10/05/20 Principal diagnosis: Acute hypoxic respiratory failure secondary to Covid 19 pneumonitis. this 80-year-old female patient, known history of diabetes and hypertension, was brought into the emergency department upon the request of her family because of generalized weakness, falls and confusion x6 days. Her condition declined and the patient decompensated over the past 48-72 hours. This was rather a quick deterioration in her condition. She had been having also shortness of breath for the past 2 days.. In the emergency department, the initial vitals showed that the patient was profoundly hypoxic with a pulse ox of 50%. At that point, the patient also had blood work that showed severe lactic acidosis with a lactic acid level of 11. She wasgiven a chest x-ray that showed diffuse bilateral pulmonary infiltrates. The patient was given a bolus of 1 L of IV fluid and following that she was moved to the intensive care unit. The patient was kept on BiPAP throughout the night and currently she is on a BiPAP pressure of 14/7 cm of water with an FiO2 of 100%. Her FiO2 was 85%. She is responsive, however she is quite tachypneic and she is breathing in the mid 30s and she is struggling with her breathing and earlier this morning she started getting more restless and agitated. We had to start on Precedex which is currently running at 0.4 mcg/kg/h. She seems to be much more comfortable while on Precedex.had a bout of atrial fibrillation with rapid ventricular response in the ICU. The heart rate went up to 170 range. She was given 20 mg of Cardizem IV push. She converted back to normal sinus rhythm. She became hypotensive and her systolic blood pressure in the mid 60s. She was given additional 2 L of IV fluids and the patient is currently on normal saline running at 30 mL an hour. She will be also started on norepinephrine infusion. Lactic acid level is down to 6 based on the follow-up blood work.the blood gas showed a pH of 7.29 with a pCO2 of 37 and pO2 of 80. This was done a bipolar or 14/7 with an FiO2 of 100%. Chest x- ray showing diffuse breath and pulmonary infiltrates. D-dimer is at 1.09. The patient has a LDH of 1724, CRP level is 77, troponin is at 0.118, the proBNP level is 330, the patient has a lactic acid level of 11.4 at time of admission her lactic acid level is down to 6.7 and she has an anion gap metabolic acidosis with a serum bicarb of 14 and a gap of 19. UA is positive for glucose, +4, and COVID19 testing was positive. As such, her presentation is consistent with COVID 19 pneumonia. 09/29/2020, the patient remains intubated on a mechanical ventilator. The patient was intubated yesterday for an acute hypoxic respiratory failure and she was placed on mechanical ventilator she is currently off of a running at 40 mcg/kg per minute. The patient is on no paralytics. She is quite successful mechanical ventilator. She is an assist-control mode at the rate of 30 with a tidal volume of 375 and FiO2 of 60% with a PEEP of this. The chest x-ray from today is showing bilateral perihilar and lower lobe in addition to right upper lobe pulmonary rate. ET tube is in a good location. It is seen around 2 cm above the goyo. The patient also has a left internal jugular. Some today showed a pH of 7.18 with a pCO2 of 46 and pO2 of 108 and this wasn't an FiO2 of 60%. Meanwhile, the patient was quite hypotensive and acidotic and the patient had a very high lactic acid level of 11.4 which dropped down to 4.6 with fluid resuscitation. Overall, the patient received a total of 3 L of IV fluid in the form of normal saline and the patient is currently running at 130s's an hour of normal saline. Urine output is in order of 30-40 mL an hour and the net fluid balance is been +4.8 L over the past 24 hours. As such the patient is well resuscitated. Most recent blood pressure is 95/44 and the patient is currently on pressors at 19 mcg/ per minute of norepinephrine infusion. The procalcitonin level was at 0.53 and blood cultures and sputum cultures were sent and the patient was covered with empiric antibiotics and the patient was given cefepime and Levaquin. White cell count today's at 24. She was given Decadron. She was given convalescent plasma one unit.. The renal function is stable. E lectrolytes are stable. Potassium level is at 5.6 and this needs to be repeated. Serum bicarb is at 17 which is improving. Less lactic acid level from yesterday was at 4.6. The patient's blood sugar is at 160 and she is on sliding scale coverage for blood sugar control. Cardiac rhythm is sinus. No further bouts of atrial fibrillation. She did have one a 1 bouts yesterday prior to intubation and she converted back into normal sinus rhythm without any major difficulties. Patient was reevaluated today on 09/30/2020, remains in the ICU, intubated and mechanically ventilated. Patient is on volume control plus, tidal volume is 450, rate is 24, FiO2 is 60%, PEEP is at 15. ABG showed a pO2 of 72 pCO2 of 37 pH of 7.30. Patient is on propofol at 30 mcg/kg/m, off norepinephrine, IV fluid is at 13 0 mL per hour. Patient is on enteral feeding patient received 1 unit of convalescent plasma she was out of the window for remdesivir, she is on Decadron 20 mg daily, and she is also on Lovenox 40 mg subcu daily. Today, after reviewing her ABG and reviewed her chest x-ray, I felt there is no need to make any major changes in her ventilator settings. Hence no changes were made, and we will plan to continue present supportive care measures. Patient remains empirically on antibiotics. Her bicarb is improving not requiring any bicarb drip. She remains on sliding scale coverage for blood sugar. Presently in sinus rhythm, no further episodes of atrial fibrillation. Chest x-ray continues to show bilateral multifocal infiltrates with cardiomegaly. CBC is relatively normal. D-dimer is 1.77. Basic metabolic profile is normal. Renal profile is normal. LDH is 1814 and C-reactive protein is 76.3. Pro-calcitonin is elevated at 0.74. Levaquin and Zosyn and remain on board. Reevaluated today on 10/01/2020, patient remains in the ICU, intubated and mechanically ventilated. She is on assist control rate of 24 tidal volume is 450 FiO2 is 55% PEEP is 15. ABG showed a pO2 of 76 pCO2 of 42 pH of 7.26. Has patient was placed on oral bicarb. Patient is on propofol at 56 mcg/kg/m, norepinephrine at 0.03 mcg/kg/m, she is on tube feeding, patient will receive 1 L of fluid bolus in the formal 0.9 normal saline, and hopefully wean norepinephrine down and possibly discontinue. Chest x-ray continues to show bilateral infiltrates. And again her ABG is marginal on 60% FiO2 her pO2 was only 76. FiO2 was decreased down to 55%. No major spinning frame changer the last 24 hours, patient is basically about the same. CBC is relatively normal. D-dimer 6.82. Basic metabolic profile is normal. Renal profile is normal. LDH is 1473 and C-reactive protein is 47.3. Patient remains on the Covid 19 cocktails. Remains on Decadron 20 mg IV push daily, remains on Zosyn and Levaquin. Sputum cultures are negative. Hence we will discontinue Levaquin and continue Zosyn Patient was reevaluated today on 10/02/2020, remains in the ICU, intubated and mechanically ventilated. Patient was initially intubated on 09/28/2020. Patient remains on high PEEP at 15, thyroglobulin is 450, patient is on volume control plus, inspiratory time is 0.8 seconds, FiO2 is 55% and PEEP is at 15. ABG showed a pO2 of 69 pCO2 42 pH of 7.27, hence cut down her FiO2 to 50%, and kept her on the same ventilator settings. Patient is on propofol at 55 mcg/kg/m, off norepinephrine and her IV fluids remains at 1 50 mL per hour. Chest x-ray continues to show bilateral infiltrates, basically the same, does not seem to be any better or any worse. Her d-dimer is significantly high today, over 35, hence we increased her Lovenox 50 mg subcu twice a day. Her peak airway pressure is 35, plateau pressure is 32. Urine output is about 40 mL per hour. Basic metabolic profile today is normal. Bicarb remains a bit low at 20. Renal profile is normal. CBC is relatively normal. Inflammatory markers remain elevated LDH is 1476 and C-reactive protein is 29.7. Patient was reevaluated today on 10/03/2020, remains in ICU, intubated and mechanically ventilated. Her ventilator settings are volume control plus at 450, FiO2 is 65% PEEP is 15 and the rate is 24. ABG remains marginal with a pO2 of 60 pCO2 of 44 pH of 7.28. Remains on propofol not requiring any other sedation at this point. Remains on enteral feeding via orogastric tube, she is up to goal. Chest x-ray is basically about the same continues to show bilateral interstitial infiltrates. It is not any better and not any worse. Patient is hemodynamically stable, not requiring any pressors. Her d-dimer is 34 hence the Lovenox dose was increased. Her C-reactive protein is 15.1 [place] [address] labs today were reviewed, chest x-ray was reviewed and I updated her daughter on her condition. The family seems to be inclined to consider comfort care measures in the meantime the CODE STATUS was changed to DO NOT RESUSCITATE CODE STATUS. Daughter was made aware that her condition has not shown any improvement since the day she was intubated on 09/28/2020. I believe her overall clinical status is unchanged. Patient was reevaluated today on 10/04/2020, remains in the ICU, intubated and mechanically ventilated. Patient is on assist control rate of 24, volume control plus at 450 FiO2 65% PEEP of 15. ABG remains marginal in spite of high FiO2 and high PEEP, pO2 is only 63 pCO2 is 43 pH of 7.31. Chest x-ray continues to show bilateral interstitial infiltrates, not much of a change noted in the last 1 week. Patient remains on propofol at 20 mcg/kg/m she is also on IV fluid at 1 20 mL per hour. On enteral feeding vital HP. Peak airway pressure is in the high 30s and plateau pressure is 36. CBC showed WBC count of 7.8 hemoglobin is 12.5, platelets are low at 41,000 patient is on Lovenox because of significantly elevated d-dimer. Electrolytes showed slightly elevated sodium of 145 otherwise electrolytes are normal. Renal profile is normal. LDH is 1832, seems to be worsening. and C-reactive protein is 10.3, noted to be a bit better today. D-dimer remains elevated at greater than 34. Patient was reevaluated today on 10/05/2020, remains in the ICU, intubated and mechanically ventilated. Her ventilator settings are volume control +450 assist-control rate of 24 FiO2 65% PEEP remains 15. Patient remains on propofol at 20 mcg/kg/m, family apparently is considering comfort care measures on this patient sometime later today. No labs were drawn today. No chest x-ray was done today. Patient remains on propofol and I added fentanyl today. Objective - Vital Signs Vital signs: Vital Signs Temp 98.0 F 10/05/20 04:00 Pulse 70 10/05/20 07:00 Resp 24 03/13/21 07:00 BP 111/57 10/05/20 07:00 Pulse Ox 92 L 10/05/20 07:00 Intake & Output 10/04/20 10/05/20 10/05/20 18:59 06:59 18:59 Intake Total 2473.736 2190.493 850 Output Total 705 615 325 Balance 6136.749 3736.493 525 Weight 97 kg 102.9 kg Intake: IV 1968 1596 680 0.9 Sodium Chloride 1430 650 Piperacillin-Tazobactam 3 200 100 .375 gm In Sodium Chloride 0.9% 100 ml @ 25 mls/hr IVPB Q8H [facility] Rx#: [id number] Pressure Bag 78 66 30 Sodium Chloride 0.9% 1, 1690 000 ml @ 130 mls/hr IV . Q7H42M [facility] Rx#:[id number] Intake, IV Titration 79.736 196.493 Amount propofoL 1,000 mg In 79.736 196.493 Empty Bag 1 bag @ Titrate IV .Q0M [facility] Rx#: [id number] Tube Feeding 336 308 140 Other 90 90 30 Output: Urine 705 615 325 Other: Voiding Method Indwelling Catheter Indwelling Catheter Indwelling Catheter ABP, PAP, CO, CI - Last Documented Arterial Blood Pressure 140/47 - Exam Physical Exam: Revealed a 80-year-old female in no distress, ventilated, sedated, comfortable. Head: Atraumatic, normocephalic HEENT:[Neck is supple.] [No neck masses.] [No thyromegaly.] [No JVD.] endo tracheal tube and orogastric tubes are intact. Chest: [Clear throughout, minimal crackles at the bases no rhonchi and no wheezes. Cardiac Exam: [Normal S1 and S2, no S3 gallop, no murmur.] Abdomen: [Soft, nontender, no megaly, no rebound, no guarding, normal bowel sounds.] Extremities: [No clubbing, no edema, no cyanosis.] Neurological Exam: Could not assess, patient is sedated and maintained on propofol. She is calm and comfortable, pupils are equally reactive to light. With holding sedation will be done today for assessment of mental status. Psychiatric: Could not be assessed. Skin: No rashes. - Labs CBC & Chem 7: 10/04/20 04:45 10/04/20 04:45 Labs: Abnormal Lab Results - Last 24 Hours (Table) 10/04/20 10/04/20 10/04/20 Range/Units 14:54 14:56 17:26 POC Glucose (mg/dL) 233 H 214 H 164 H (75-99) mg/dL 10/04/20 10/04/20 10/05/20 Range/Units 20:29 23:40 02:40 POC Glucose (mg/dL) 168 H 155 H 169 H (75-99) mg/dL 10/05/20 10/05/20 Range/Units 06:02 10:09 POC Glucose (mg/dL) 151 H 179 H (75-99) mg/dL Microbiology - Last 24 Hours (Table) 09/28/20 16:43 Blood Culture - Final Blood No Growth after 144 hours Assessment and Plan Assessment: Impression: Acute hypoxic respiratory failure secondary to covid 19 pneumonitis. Also suspect ARDS. Lymphopenia with thrombocytopenia secondary to above. Elevated inflammatory markers secondary to Covid 19 pneumonitis. Type 2 diabetes. Benign essential hypertension. Paroxysmal atrial fibrillation. Hypovolemic hypotension,, responding to fluids mostly. Elevated d-dimer secondary to above. Recommendation: Continue present supportive care measures for now. Fully agree with comfort care measures. This will be accomplished today. Time with Patient: Less than 30
[2020-10-05 12:57] LABS: Glucose,Whole Blood 162 mg/dL (75-99)
[2020-10-05 13:40] VITALS: BP 173/56; TEMP 98.1
--- NOTE | 2020-10-05 13:41 | P.PN ---
Subjective Progress Note Date: 10/05/20 Ann-Marie Molina, is a 80-year-old female patient of Dr. Esquivel, who presented to [facility] emergency room with a chief complaint of worsening shortness of breath generalized weakness and confusion, symptoms started about 6 days prior to admission but her condition declined significantly in the last 2 days. Patient was evaluated in emergency room vital examination on presentation revealed a temperature of 98.4 pulse 133 respiration 30 blood pressure 135/67 pulse ox 55% on room air her white blood count was 3.8 hemoglobin 15.9 platelet count 99 sodium 133 potassium 4.5 plasma lactic acid 11.4 BUN 17 creatinine 0.9 arterial blood gases revealed a pH of 7.19 pCO2 49 by mouth to 59 . Chest x-ray done in the emergency room revealed moderate pulmonary edema that could relate to congestive heart failure or ARDS , EKG revealed sinus tachycardia with right bundle branch block , coronavirus PCR was positive. patient was admitted to intensive care unit she was started on BiPAP. Patient developed atrial fibrillation with rapid ventricular response with a heart rate of 170 she was started on Cardizem drip, she had episodes of hypotension, she was started on levophed drip, and earlier this morning she required intubation and mechanical ventilation. Her past medical history is significant for history of hypertension, history of hyperlipidemia, history of insulin-dependent diabetes mellitus, and history of osteoporosis On 09/29/2020 patient was seen and examined in the ICU she is intubated sedated maintained on mechanical ventilation she is on assist control rate of 30 FiO2 60% and a PEEP of 15. PH is 7.18 pCO2 46 by mouth 08/26/2007 lactic acid is down to 4.6 blood pressure 100/52 she is still maintained on levophed infusion, she is maintained on IV Decadron she received 1 unit of convalescent plasma, white blood count 24.6 hemoglobin 14.1 platelet count 181 sodium 136 potassium 5.6 chloride 110 CO2 17 BUN 28 creatinine 1.2 glucose level 165 On 09/30/2020 patient was seen and examined in the ICU she is intubated sedated maintained on mechanical ventilation, today she was taken off of vasopressors and has been tolerating well blood pressure at this time 98/55, pH is 7.30 pCO2 37 by mouth to 72 white blood count is down to 6.6 hemoglobin 12.6 platelet cou nt 107 d-dimer is 1.77 BUN 34 creatinine 0.96 On 10/01/2020 patient was seen and examined in the ICU she remains intubated sedated maintained on mechanical ventilation FiO2 55% rate of 24 and PEEP of 15 temperature is 97.5 pulse 79 respiration 24 blood pressure 127/58 pulse ox 91% on FiO2 55% mechanical ventilation d-dimer 6.8 to pH 7.26 pCO2 42 by mouth to 76 white blood count is 5.8 hemoglobin 12.6 platelet count 102 BUN 37 creatinine 0.96 liver enzymes are elevated with AST at 71 a LT at 38 On 10/02/2020 patient was seen and examined in the ICU she is intubated sedated maintained on mechanical ventilation FiO2 55% rate of 24 and PEEP of 15 her vital examination reveals a temperature of 97.5 pulse 75 respiration 24 blood pressure 103/46 pulse ox 91% arterial blood gas reveals a pH of 7.27 pCO2 42 pO2 69 White blood count is 6.9 hemoglobin 12.8 platelet count 71 sodium 141 potassium 4.7 chloride 120 CO2 20 BUN 33 creatinine 0.73 patient is not on any IV pressors at this time. On 10/03/2020 patient was seen and examined in the ICU she is intubated sedated maintained on mechanical ventilation, she is on FiO2 of 65% rate 24 PEEP of 15, temperature 97.6 pulse 51 respiration 24 blood pressure 131/43 pulse ox 94% ABG reveals a pH of 7.28 pCO2 44 PO2 60 white blood count is 7.2 hemoglobin 12.4 platelet count 41 sodium 144 potassium 4.8 chloride 120 glucose level 242 at this time will change Accu-Chek and coverage to every 3 hours. On 10/04/2020 patient was seen and examined in the ICU she is intubated sedated maintained on mechanical ventilation, case was discussed in details with Dr. Schwartz boiler erector, patient is stable however there is no significant improvement for the last several days despite maximum medical therapy she is still requiring high oxygen requirement no significant improvement in chest x- ray today her vital exam reveals a temperature of 97.9 pulse 59 respiration 24 blood pressure 127/78 pulse ox 91% on mechanical ventilation FiO2 65% assist control rate of 24 and PEEP of 15 ABG reveals pH 7.31 pCO2 43 PO2 63 On 10/05/2020 patient was seen and examined in the ICU she is intubated sedated maintained on mechanical ventilation there is no improvement in her oxygen requirement she is still maintained on FiO2 65% assist control PEEP of 15 rate of 24 there is no improvement in chest x-ray. Pulmonary critical care is discussing with family possibility of comfort care. Objective - Vital Signs Vital signs: Vital Signs Temp 98.0 F 10/05/20 04:00 Pulse 70 10/05/20 07:00 Resp 24 10/05/20 07:00 BP 111/57 10/05/20 07:00 Pulse Ox 92 L 10/05/20 07:00 Intake & Output 10/04/20 10/05/20 10/05/20 18:59 06:59 18:59 Intake Total 2473.736 2190.493 850 Output Total 705 615 325 Balance 1740.075 8571.493 525 Weight 97 kg 102.9 kg Intake: IV 1968 1596 680 0.9 Sodium Chloride 1430 650 Piperacillin-Tazobactam 3 200 100 .375 gm In Sodium Chloride 0.9% 100 ml @ 25 mls/hr IVPB Q8H [facility] Rx#: [id number] Pressure Bag 78 66 30 Sodium Chloride 0.9% 1, 1690 000 ml @ 130 mls/hr IV . Q7H42M [facility] Rx#:[id number] Intake, IV Titration 79.736 196.493 Amount propofoL 1,000 mg In 79.736 196.493 Empty Bag 1 bag @ Titrate IV .Q0M [facility] Rx#: [id number] Tube Feeding 336 308 140 Other 90 90 30 Output: Urine 705 615 325 Other: Voiding Method Indwelling Catheter Indwelling Catheter Indwelling Catheter ABP, PAP, CO, CI - Last Documented Arterial Blood Pressure 140/47 - Exam Patient is intubated sedated maintained on mechanical ventilation HEENT head normocephalic and atraumatic Neck is supple no JVD no goiter no lymphadenopathy Chest exam reveals a few scattered rhonchi no wheezing Cardiac exam reveals regular heart sounds no gallops no murmurs Abdomen is soft nontender no organomegaly with normal bowel sounds Extremity exam reveals no edema no cyanosis or clubbing - Labs CBC & Chem 7: 10/04/20 04:45 10/04/20 04:45 Labs: Abnormal Lab Results - Last 24 Hours (Table) 10/04/20 10/04/20 10/04/20 Range/Units 11:59 14:54 14:56 POC Glucose (mg/dL) 209 H 233 H 214 H (75-99) mg/dL 10/04/20 10/04/20 10/04/20 Range/Units 17:26 20:29 23:40 POC Glucose (mg/dL) 164 H 168 H 155 H (75-99) mg/dL 10/05/20 10/05/20 10/05/20 Range/Units 02:40 06:02 10:09 POC Glucose (mg/dL) 169 H 151 H 179 H (75-99) mg/dL Microbiology - Last 24 Hours (Table) 09/28/20 16:43 Blood Culture - Final Blood No Growth after 144 hours Assessment and Plan Plan: 1. Acute hypoxic respiratory failure, requiring intubation and mechanical ventilation 2. Poitive Covid 19 testing 3. bilateral pulmonary infiltrates, likely related to pneumonia due to Covid 19 virus 4. Episode of atrial fibrillation with rapid ventricular response 5. Acute lactic acidosis improving 6. Episode of hypotension improved with IV fluid and levophed drip 7. Underlying history of hypertension 8. Underlying history of hyperlipidemia 9. Underlying history of diabetes mellitus Currently patient is intubated sedated maintained on mechanical ventilation She is maintained on IV Decadron and subcu Lovenox Will follow closely prognosis is guarded due to age and severity of illness
[2020-10-05] MEDS ORDERED: LORazepam 2 MG/ML INJ IV PRN (15:54)
[2020-10-05] MEDS ORDERED: ATROPINE OPHTH SOLN 1% 5ML BTL SUBLINGUAL PRN (15:54)
[2020-10-05] MEDS ORDERED: MORPHINE SULFATE 2 MG/ML SYRINGE IV PRN (15:54)
[2020-10-05] MEDS ORDERED: SCOPOLAMINE 1.5MG/72HR PATCH TRANSDERM SCH (16:00)
[2020-10-05] MEDS ORDERED: MORPHINE SULFATE (100 MG/2 ML) 100 MG in SODIUM CHLORIDE 0.9% 100 ML IV SCH (16:30)
[2020-10-05 19:24] VITALS: PULSE 51
[2020-10-08 13:16] LABS: ABG PH 7.18 (7.35-7.45)
--- NOTE | 2020-10-09 10:50 | P.DS ---
Providers Date of admission: 09/28/20 01:38 Expected date of discharge: 10/05/20 Attending physician: Nereida Redd Consults: 09/28/20 01:38 Consult Physician Urgent Consulting Provider: Antonio Alvarenga Consult Reason/Comments: covid Do you want consulting provider notified?: Yes Primary care physician: Rachell Esquivel [facility] Course: Discharge diagnosis 10/05/2020 acute hypoxic respiratory failure secondary to COVId- 19 pneumonitis 1. Acute hypoxic respiratory failure, requiring intubation and mechanical ventilation 2. Poitive Covid 19 testing 3. bilateral pulmonary infiltrates, likely related to pneumonia due to Covid 19 virus 4. Episode of atrial fibrillation with rapid ventricular response 5. Acute lactic acidosis improving 6. Episode of hypotension improved with IV fluid and levophed drip 7. Underlying history of hypertension 8. Underlying history of hyperlipidemia 9. Underlying history of diabetes mellitus Hospital course Ann-Marie Molina, is a 80-year-old female patient of Dr. Esquivel, who presented to [facility] emergency room with a chief complaint of worsening shortness of breath generalized weakness and confusion, symptoms started about 6 days prior to admission but her condition declined significantly in the last 2 days. Patient was evaluated in emergency room vital examination on presentation revealed a temperature of 98.4 pulse 133 respiration 30 blood pressure 135/67 pulse ox 55% on room air her white blood count was 3.8 hemoglobin 15.9 platelet count 99 sodium 133 potassium 4.5 plasma lactic acid 11 .4 BUN 17 creatinine 0.9 arterial blood gases revealed a pH of 7.19 pCO2 49 by mouth to 59 . Chest x-ray done in the emergency room revealed moderate pulmonary edema that could relate to congestive heart failure or ARDS , EKG revealed sinus tachycardia with right bundle branch block , coronavirus PCR was positive. patient was admitted to intensive care unit she was started on BiPAP. Patient developed atrial fibrillation with rapid ventricular response with a heart rate of 170 she was started on Cardizem drip, she had episodes of hypotension, she was started on levophed drip, and earlier this morning she required intubation and mechanical ventilation. Her past medical history is significant for history of hypertension, history of hyperlipidemia, history of insulin-dependent diabetes mellitus, and history of osteoporosis On 09/29/2020 patient was seen and examined in the ICU she is intubated sedated maintained on mechanical ventilation she is on assist control rate of 30 FiO2 60% and a PEEP of 15. PH is 7.18 pCO2 46 by mouth 08/26/2007 lactic acid is down to 4.6 blood pressure 100/52 she is still maintained on levophed infusion, she is maintained on IV Decadron she received 1 unit of convalescent plasma, white blood count 24.6 hemoglobin 14.1 platelet count 181 sodium 136 potassium 5.6 chloride 110 CO2 17 BUN 28 creatinine 1.2 glucose level 165 On 09/30/2020 patient was seen and examined in the ICU she is intubated sedated maintained on mechanical ventilation, today she was taken off of vasopressors and has been tolerating well blood pressure at this time 98/55, pH is 7.30 pCO2 37 by mouth to 72 white blood count is down to 6.6 hemoglobin 12.6 platelet count 107 d-dimer is 1.77 BUN 34 creatinine 0.96 On 10/01/2020 patient was seen and examined in the ICU she remains intubated sedated maintained on mechanical ventilation FiO2 55% rate of 24 and PEEP of 15 temperature is 97.5 pulse 79 respiration 24 blood pressure 127/58 pulse ox 91% on FiO2 55% mechanical ventilation d-dimer 6.8 to pH 7.26 pCO2 42 by mouth to 76 white blood count is 5.8 hemoglobin 12.6 platelet count 102 BUN 37 creatinine 0.96 liver enzymes are elevated with AST at 71 a LT at 38 On 10/02/2020 patient was seen and examined in the ICU she is intubated sedated maintained on mechanical ventilation FiO2 55% rate of 24 and PEEP of 15 her vital examination reveals a temperature of 97.5 pulse 75 respiration 24 blood pressure 103/46 pulse ox 91% arterial blood gas reveals a pH of 7.27 pCO2 42 pO2 69 White blood count is 6.9 hemoglobin 12.8 platelet count 71 sodium 141 potassium 4.7 chloride 120 CO2 20 BUN 33 creatinine 0.73 patient is not on any IV pressors at this time. On 10/03/2020 patient was seen and examined in the ICU she is intubated sedated maintained on mechanical ventilation, she is on FiO2 of 65% rate 24 PEEP of 15, temperature 97.6 pulse 51 respiration 24 blood pressure 131/43 pulse ox 94% ABG reveals a pH of 7.28 pCO2 44 PO2 60 white blood count is 7.2 hemoglobin 12.4 p latelet count 41 sodium 144 potassium 4.8 chloride 120 glucose level 242 at this time will change Accu-Chek and coverage to every 3 hours. On 10/04/2020 patient was seen and examined in the ICU she is intubated sedated maintained on mechanical ventilation, case was discussed in details with Dr. Schwartz online content coordinator, patient is stable however there is no significant improvement for the last several days despite maximum medical therapy she is still requiring high oxygen requirement no significant improvement in chest x- ray today her vital exam reveals a temperature of 97.9 pulse 59 respiration 24 blood pressure 127/78 pulse ox 91% on mechanical ventilation FiO2 65% assist control rate of 24 and PEEP of 15 ABG reveals pH 7.31 pCO2 43 PO2 63 On 10/05/2020 patient was seen and examined in the ICU she is intubated sedated maintained on mechanical ventilation there is no improvement in her oxygen requirement she is still maintained on FiO2 65% assist control PEEP of 15 rate of 24 there is no improvement in chest x-ray. Pulmonary critical care is discussing with family possibility of comfort care. Family decided to move forward with comfort care measures Plan - Discharge Summary Discharge Rx Participant: Yes New Discharge Prescriptions: No Action Cholecalciferol [Vitamin D3] 1,000 unit PO DAILY metFORMIN HCL 1,500 mg PO W/BRKFST Simvastatin [Zocor] 10 mg PO HS Omeprazole 20 mg PO DAILY Losartan [Cozaar] 25 mg PO QAM Insulin Glargine,Hum.rec.anlog [Lantus Solostar] 75 unit SQ HS Dapagliflozin Propanediol [Farxiga] 10 mg PO HS Aspirin [Adult Low Dose Aspirin EC] 81 mg PO DAILY Acetaminophen Tab [Tylenol Tab] 500 mg PO Q6H PRN PRN Reason: Pain Sulfamethox-Tmp 800-160Mg [Bactrim DS 800-160 mg] 1 tab PO Q12HR Furosemide [Lasix] 40 mg PO DAILY PRN PRN Reason: Edema metFORMIN HCL 1,000 mg PO W/SUPPER Discharge Medication List Aspirin [Adult Low Dose Aspirin EC] 81 mg PO DAILY 04/20/17 [History] Cholecalciferol [Vitamin D3] 1,000 unit PO DAILY 04/20/17 [History] Dapagliflozin Propanediol [Farxiga] 10 mg PO HS 04/20/17 [History] Insulin Glargine,Hum.rec.anlog [Lantus Solostar] 75 unit SQ HS 04/20/17 [History] Losartan [Cozaar] 25 mg PO QAM 04/20/17 [History] Omeprazole 20 mg PO DAILY 04/20/17 [History] Simvastatin [Zocor] 10 mg PO HS 04/20/17 [History] metFORMIN HCL 1,500 mg PO W/BRKFST 04/20/17 [History] Acetaminophen Tab [Tylenol Tab] 500 mg PO Q6H PRN 09/27/20 [History] Furosemide [Lasix] 40 mg PO DAILY PRN 09/27/20 [History] Sulfamethox-Tmp 800-160Mg [Bactrim DS 800-160 mg] 1 tab PO Q12HR 09/27/20 [History] metFORMIN HCL 1,000 mg PO W/SUPPER 09/27/20 [History] Follow up Appointment(s)/Referral(s): Rachell Esquivel MD [Primary Care Provider] - 1-2 days Discharge Disposition: - Preliminary Cause of Preliminary Cause of : Acute hypoxic respiratory failure secondary to COVID 19 pneumonitis
== END 2020-10-05 19:00 | disposition expired | DRG 207 ==
LOC: EC 22:52 → 2SICU 09-28 01:38
PROVIDERS: ADMIT Internal Medicine; ATTEND Internal Medicine
PROC: XW13325 Transfusion of Convalescent Plasma (Nonautologous) into Peripheral Vein, Percutaneous Approach, New Technology Group 5 (ICD-10-PCS; 2020-09-28)
PROC: 0BH17EZ Insertion of Endotracheal Airway into Trachea, Via Natural or Artificial Opening (ICD-10-PCS; 2020-09-28)
PROC: 03HY32Z Insertion of Monitoring Device into Upper Artery, Percutaneous Approach (ICD-10-PCS; 2020-09-28)
PROC: 3E043XZ Introduction of Vasopressor into Central Vein, Percutaneous Approach (ICD-10-PCS; 2020-09-28)
PROC: 4A133J1 Monitoring of Arterial Pulse, Peripheral, Percutaneous Approach (ICD-10-PCS; 2020-09-28)
PROC: 3E033XZ Introduction of Vasopressor into Peripheral Vein, Percutaneous Approach (ICD-10-PCS; 2020-09-28)
PROC: 05HN33Z Insertion of Infusion Device into Left Internal Jugular Vein, Percutaneous Approach (ICD-10-PCS; 2020-09-28)
PROC: 4A133B1 Monitoring of Arterial Pressure, Peripheral, Percutaneous Approach (ICD-10-PCS; 2020-09-28)
PROC: 5A09357 Assistance with Respiratory Ventilation, Less than 24 Consecutive Hours, Continuous Positive Airway Pressure (ICD-10-PCS; 2020-09-28)
PROC: 5A1955Z Respiratory Ventilation, Greater than 96 Consecutive Hours (ICD-10-PCS; principal; 2020-10-01)
DX: U07.1 COVID-19 (principal); J12.82 Pneumonia due to coronavirus disease 2019; G93.41 Metabolic encephalopathy; J80 Acute respiratory distress syndrome; I50.32 Chronic diastolic (congestive) heart failure; I31.3 Pericardial effusion (noninflammatory); E87.2 Acidosis; E11.9 Type 2 diabetes mellitus without complications; I11.0 Hypertensive heart disease with heart failure; R06.82 Tachypnea, not elsewhere classified; I95.9 Hypotension, unspecified; I48.0 Paroxysmal atrial fibrillation; D72.810 Lymphocytopenia; Z51.5 Encounter for palliative care; E78.5 Hyperlipidemia, unspecified; Z66 Do not resuscitate; E86.1 Hypovolemia; M81.0 Age-related osteoporosis without current pathological fracture; F41.9 Anxiety disorder, unspecified; Z79.82 Long term (current) use of aspirin; I45.10 Unspecified right bundle-branch block; K21.9 Gastro-esophageal reflux disease without esophagitis; Z79.4 Long term (current) use of insulin; Z87.01 Personal history of pneumonia (recurrent); Z88.5 Allergy status to narcotic agent; D69.59 Other secondary thrombocytopenia; Z90.710 Acquired absence of both cervix and uterus
CPT/HCPCS: 36415; 36600; 71045; 80048; 80053; 81001; 82550; 82728; 82805; 83036; 83605; 83615; 83690; 83735; 83880; 84100; 84132; 84145; 84443; 84484; 85025; 85027; 85379; 85610; 85730; 86140; 86850; 86900; 86901; 87040; 87070; 87205; 87635; 93005; 93306; 94002; 94003; 94640; 96360; 96361; 99291